=== PATIENT | female | born 1950 | race Caucasian/White ===

== ENCOUNTER 2021-10-14 23:09 | Inpatient (IN) | payer MEDICARE, OTHER ==
[~2021-10-14] VITALS: Ht 154.9 cm; Wt 85.0 kg
[2021-10-14] MEDS ORDERED: morphine INJ 10 MG/ML 1ML (SYR OR VIAL) IVP STA (23:25)
[2021-10-14] MEDS ORDERED: ASPIRIN 81 MG CHEW (CHILDREN'S ASA) PO ONE (23:30)
[2021-10-14] MEDS ORDERED: NS IV 1000 ML 1,000 ML IV SCH (23:30)
--- NOTE | 2021-10-14 23:33 | ED Chest Pain ---
General Chief Complaint: Chest Pain Stated Complaint: CHEST PAIN Source: patient Exam Limitations: no limitations History of Present Illness Date Seen by Provider: Oct 14, 2021 Time Seen by Provider: 23:21 Initial Comments Patient is a 71-year-old female who presents to the emergency department today with a chief complaint of substernal chest pain onset around 6-7pm PM while working in her kitchen. She states it has steadily worsened to the point that it is a "10" now. She is nauseous and feels like she could vomit. She feels short of breath. The pain radiates from her chest into her right shoulder, down her right arm and into the right side of her neck and face. She has never had pain like this before. She has never had any cardiac evaluation in the past. She has a history of hypertension and hypercholesterolemia. She is not a smoker. She did not take aspirin prior to arrival. Getting up and moving around make her pain worse. She had COVID in August. She is not a diabetic. All other review of systems reviewed and negative except as stated. 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 Associated Symptoms: nausea/vomiting, shortness of breath Allergies and Home Medications Allergies Coded Allergies: No Known Drug Allergies (Unverified , 10/14/21) Patient Home Medication List Home Medication List Reviewed: Yes Review of Systems Review of Systems Constitutional: see HPI EENTM: No Symptoms Reported Respiratory: Shortness of Air Cardiovascular: Chest Pain Gastrointestinal: Nausea Genitourinary: No Symptoms Reported Musculoskeletal: no symptoms reported Skin: no symptoms reported All Other Systems Reviewed Negative Unless Noted: Yes Physical Exam Vital Signs Vital Signs - First Documented 10/14/21 23:12 Pulse 65 Resp 20 B/P (MAP) 198/99 (132) Pulse Ox 99 O2 Delivery Room Air Capillary Refill : Height, Weight, BMI Height: '" Weight: lbs. oz. kg; BMI Method: General Appearance: WD/WN, Anxious HEENT: PERRL/EOMI Neck: Normal Inspection Respiratory: Lungs Clear, Normal Breath Sounds, No Accessory Muscle Use, No Respiratory Distress Cardiovascular: Regular Rate, Rhythm, Normal Peripheral Pulses Gastrointestinal: Non Tender, Soft Extremity: Normal Inspection, Normal Range of Motion, No Calf Tenderness, No Pedal Edema Neurologic/Psychiatric: Alert, Oriented x3, No Motor/Sensory Deficits, Normal Mood/Affect, emergency room clerk II-XII Norm as Tested Critical Care Note Critical Care Start Time: 23:21 Stop Time: 00:04 Total Time (minutes) 20 minutes critical care time eval and management of stemi - review of EKG, discussion with medical genetics director; re-evaluation of patient, management of high blood pressure Progress/Results/Core Measures Results/Orders Lab Results Laboratory Tests Test 10/14/21 23:22 Range/Units White Blood Count 6.1 4.3-11.0 10^3/uL Red Blood Count 4.56 3.80-5.11 10^6/uL Hemoglobin 13.1 11.5-16.0 g/dL Hematocrit 40 35-52 % Mean Corpuscular Volume 88 80-99 fL Mean Corpuscular Hemoglobin 29 25-34 pg Mean Corpuscular Hemoglobin Concent 33 32-36 g/dL Red Cell Distribution Width 13.2 10.0-14.5 % Platelet Count 279 130-400 10^3/uL Mean Platelet Volume 10.0 9.0-12.2 fL Immature Granulocyte % (Auto) 0 % Neutrophils (%) (Auto) 69 42-75 % Lymphocytes (%) (Auto) 20 12-44 % Monocytes (%) (Auto) 9 0-12 % Eosinophils (%) (Auto) 1 0-10 % Basophils (%) (Auto) 0 0-10 % Neutrophils # (Auto) 4.2 1.8-7.8 10^3/uL Lymphocytes # (Auto) 1.2 1.0-4.0 10^3/uL Monocytes # (Auto) 0.6 0.0-1.0 10^3/uL Eosinophils # (Auto) 0.1 0.0-0.3 10^3/uL Basophils # (Auto) 0.0 0.0-0.1 10^3/uL Immature Granulocyte # (Auto) 0.0 0.0-0.1 10^3/uL Prothrombin Time 12.3 12.2-14.7 SEC INR Comment 0.9 0.8-1.4 Activated Partial Thromboplast Time 28 24-35 SEC Sodium Level 138 135-145 MMOL/L Potassium Level 4.2 3.6-5.0 MMOL/L Chloride Level 101 98-107 MMOL/L Carbon Dioxide Level 24 21-32 MMOL/L Anion Gap 13 5-14 MMOL/L Blood Urea Nitrogen 17 7-18 MG/DL Creatinine 0.90 0.60-1.30 MG/DL Estimat Glomerular Filtration Rate 68 BUN/Creatinine Ratio 19 Glucose Level 118 H 70-105 MG/DL Calcium Level 9.4 8.5-10.1 MG/DL Corrected Calcium 9.4 8.5-10.1 MG/DL Magnesium Level 2.2 1.6-2.4 MG/DL Total Bilirubin 0.3 0.1-1.0 MG/DL Aspartate Amino Transf (AST/SGOT) 17 5-34 U/L Alanine Aminotransferase (ALT/SGPT) 13 0-55 U/L Alkaline Phosphatase 82 40-136 U/L Myoglobin 60.0 H <58.0 NG/ML Troponin I 0.32 *H <0.30 NG/ML Total Protein 7.3 6.4-8.2 GM/DL Albumin 4.0 3.2-4.5 GM/DL My Orders Orders - TEE STEPHENS MD Chest 1 View Ap/Pa Only (10/14/21 23:23) Cbc With Automated Diff (10/14/21 23:25) Magnesium (10/14/21 23:25) Comprehensive Metabolic Panel (10/14/21 23:25) Myoglobin Serum (10/14/21 23:25) Protime With Inr (10/14/21 23:25) Partial Thromboplastin Time (10/14/21 23:25) O2 (10/14/21 23:25) Monitor-Rhythm Ecg Trace Only (10/14/21 23:25) Ed Iv/Invasive Line Start (10/14/21 23:25) Troponin I Fs (10/14/21 23:25) Aspirin Chewable Tablet (Baby Aspirin Ch (10/14/21 23:30) Morphine Injection (Morphine Injection (10/14/21 23:25) Ns Iv 1000 Ml (Sodium Chloride 0.9%) (10/14/21 23:30) Ondansetron Injection (Zofran Injectio (10/14/21 23:45) Heparin Drip 14135 Unit/500ml (Heparin (10/14/21 23:45) Heparin (Bolus Per Protocol) (Heparin (B (10/14/21 23:45) Cbc No Diff (10/14/21 23:33) Cbc No Diff (10/17/21 05:00) Cbc No Diff (10/20/21 05:00) Platelet Count (10/16/21 05:00) Platelet Count (10/17/21 05:00) Platelet Count (10/18/21 05:00) Platelet Count (10/19/21 05:00) Platelet Count (10/20/21 05:00) Platelet Count (10/21/21 05:00) Platelet Count (10/22/21 05:00) Platelet Count (10/23/21 05:00) Platelet Count (10/24/21 05:00) Partial Thromboplastin Time (10/15/21 03:33) Protime With Inr (10/17/21 05:00) Initiate Heparin Acs Protocol (10/14/21 23:33) Clopidogrel Tablet (Plavix Tablet) (10/14/21 23:45) Metoprolol Tartrate Injection (Lopressor (10/14/21 23:45) Ondansetron Injection (Zofran Injectio (10/14/21 23:34) Heparin Drip 93973 Unit/500ml (Heparin (10/14/21 23:44) Medications Given in ED Current Medications Medications Dose Ordered Sig/Hollie Route Start Time Stop Time Status Last Admin Dose Admin Aspirin 324 mg ONCE ONCE PO 10/14/21 23:30 10/14/21 23:31 DC 10/14/21 23:31 324 MG Clopidogrel Bisulfate 300 mg ONCE ONCE PO 10/14/21 23:45 10/14/21 23:46 DC 10/14/21 23:48 300 MG Heparin Sodium (Porcine) ACS PROTOCOL 60 uni... PRN PRN IV 10/14/21 23:45 10/15/21 02:14 DC 10/14/21 23:48 5,000 UNIT Metoprolol Tartrate 2.5 mg ONCE ONCE IV 10/14/21 23:45 10/14/21 23:46 DC 10/14/21 23:47 2.5 MG Ondansetron HCl 4 mg ONCE ONCE IVP 10/14/21 23:45 10/14/21 23:46 DC 10/14/21 23:35 4 MG Vital Signs/I&O 10/14/21 10/15/21 23:12 00:07 Pulse 65 62 Resp 20 18 B/P (MAP) 198/99 (132) 139/78 Pulse Ox 99 98 O2 Delivery Room Air Room Air Progress Progress Note #1: Time: 23:42 Progress Note Discussed with Dr. Gan would like Plavix load 300 mg p.o., heparin per ACS protocol as well as Lopressor 2.5 mg IV every 5 minutes x3. He is comfortable with morphine and withholding nitro at this time. She will be transferred down to [facility] straight to the [facility]. 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 Still rating it at about an "8" from a "10". Localized mostly in the right shoulder blade now. Initial ECG Impression Date: Oct 14, 2021 Initial ECG Impression Time: 23:25 Initial ECG Rate: 59 Initial ECG Rhythm: S.Michael Initial ECG Intervals MS interval 181 QRS [address] segment elevation noted in leads I, aVL, lead V2. ST segment depression in leads III and aVF Diagnostic Imaging Diagonstic Imaging: Xray Plain Films/CT/US/NM/MRI: chest Comments interpreted by me - bra still in place, obscures a little - cardiomegaly, slight increased pulmonary vascular congestion; slighty widened mediastinum (portable technique) no effusion. Departure Communication (Admissions) Time/Spoke to Admitting Phy: 23:[address] Gan Impression Primary Impression: STEMI (ST elevation myocardial infarction) Qualified Codes: I21.3 - ST elevation (STEMI) myocardial infarction of unspecified site Disposition: ADMITTED INPATIENT Condition: Critical Admissions Decision to Admit Reason: Admit from ER (General) Decision to Admit/Date: Oct 14, 2021 Time/Decision to Admit Time: 23:31 Transfer Transfer Reason: Exceeds level of care Time Spoke to Accepting Phy: 23:31 Transfer Progress Notes DIscussed with Dr Gan Transfer Facility: [facility] Method of Transfer: EMS Departure-Patient Inst. Referrals: HIEU ESCALERA MD (PCP) Primary Care Physician TEE STEPHENS MD Oct 14, 2021 23:33
[2021-10-14] MEDS ORDERED: ONDANSETRON 4 MG/2 ML (SDV) Z0FRAN ONE (23:34)
[2021-10-14] MEDS ORDERED: HEParin DRIP 25000 UNIT/500ML 500 ML IV ONE (23:44)
[2021-10-14 23:45] LABS: BASOPHILS % (AUTO) 0 % (0-10); EOSINOPHILS # (AUTO) 0.1 10^3/uL (0.0-0.3); EOSINOPHILS % (AUTO) 1 % (0-10); HEMATOCRIT 40 % (35-52); HEMOGLOBIN 13.1 g/dL (11.5-16.0); LYMPHOCYTES # (AUTO) 1.2 10^3/uL (1.0-4.0); LYMPHOCYTES % (AUTO) 20 % (12-44); MEAN CORPUSCULAR HEMOGLOBIN 29 pg (25-34); MEAN CORPUSCULAR HGB CONC 33 g/dL (32-36); MEAN CORPUSCULAR VOLUME 88 fL (80-99); MONOCYTES # (AUTO) 0.6 10^3/uL (0.0-1.0); MONOCYTES % (AUTO) 9 % (0-12); NEUTROPHILS # (AUTO) 4.2 10^3/uL (1.8-7.8); NEUTROPHILS % (AUTO) 69 % (42-75); PLATELET COUNT 279 10^3/uL (130-400); WHITE BLOOD COUNT 6.1 10^3/uL (4.3-11.0)
[2021-10-14] MEDS ORDERED: CLOPIDOGREL 300 MG (PLAVIX) TABLET PO ONE (23:45)
[2021-10-14] MEDS ORDERED: HEParin 1000 UNIT/ML (10ML VIAL) FOR BOLUS IV PRN (23:45)
[2021-10-14] MEDS ORDERED: HEParin DRIP 25000 UNIT/500ML 500 ML IV SCH (23:45)
[2021-10-14] MEDS ORDERED: ONDANSETRON 4 MG/2 ML (SDV) Z0FRAN IVP ONE (23:45)
[2021-10-14] MEDS ORDERED: meTOprolol 5 MG/5 ML (LOPRESSOR) VIAL IV ONE (23:45)
[2021-10-15 00:14] LABS: INR 0.9 (0.8-1.4); PROTHROMBIN TIME PATIENT 12.3 SEC (12.2-14.7)
[2021-10-15] MEDS ORDERED: MIDAZOLAM 5 MG/5 ML (VERSED) VIAL ONE (00:15)
[2021-10-15] MEDS ORDERED: fentaNYL INJ 100 MCG/2 ML AMP ONE (00:15)
[2021-10-15] MEDS ORDERED: HEParin 1000 UNIT/ML (10ML VIAL) FOR BOLUS ONE (00:15)
[2021-10-15 00:16] LABS: BILIRUBIN,TOTAL 0.3 MG/DL (0.1-1.0); CALCIUM 9.4 MG/DL (8.5-10.1); CREATININE SERUM 0.9 MG/DL (0.60-1.30); MAGNESIUM 2.2 MG/DL (1.6-2.4); POTASSIUM 4.2 MMOL/L (3.6-5.0)
[2021-10-15] MEDS ORDERED: NS IV 1000 ML 1,000 ML ONE (00:16)
[2021-10-15 00:17] LABS: TOTAL PROTEIN 7.3 GM/DL (6.4-8.2)
--- NOTE | 2021-10-15 01:29 | Cardiology History & Physical ---
HPI-Cardiology Cardiology H&P Date of Admission 10/15/20 Primary Care Physician Admitting Physician: Attending Physician: Tate Gan MD Facp Fac Ccds Attending Physician Moose Oglesby MD Consulting Physician HPI CC: Chest pain HPI 71 yo woman with onset of chest pain at approx 7 pm on 10/14/21 who presented to the ER in [facility] after the pain had escalated to 10/10 and was associated with nausea and feeling of shortness of breath. Pain was midsternal and radiated to the shoulders. She has not experienced such pain before. She was treated with oral ASA and Plavix in the ER. She also received a heparin bolus and heparin infusion, and she was also treated with beta-arnie. She was sent as an emergency to this hosp for card cath and possible ad hoc intervention. She understood the rationale and procedure, and consented to be transferred for cath and possible ad hoc cor intervention. Card cath was carried out in an emergency manner. Coronaries were found to be patent. There were luminal irregularities in the L cor system. LVEF was normal. LVEDP was elevated. Her chest pain had subsided completely. She denies palp or syncope or swelling Review of Systems-Cardiology Review of Systems Constitutional: No weight loss, No weight gain Eyes: No vision change Ears/Nose/Throat: No ear discharge, No nasal drainage, No recent hearing loss Respiratory: As described under HPI Cardiovascular: As described under HPI Gastrointestinal: As described under HPI Genitourinary: No dysuria, No hematuria Musculoskeletal: No back pain, No joint pain Skin: No rash, No ulcerations Psychiatric/Neurological: No seizure, No focal weakness, No syncope Hematologic: No bleeding abnormalities All Other Systems Reviewed Negative Unless Noted: Yes WXF-Yhmrmw-Cajgko Hx Patient Social History Have you traveled recently?: No Alcohol Use?: No Past Medical History PMH As described under Assessment. Family Medical History Family Medical History: She does not report fam h/o early CAD or SCD Allergies and Home Medications Allergies Coded Allergies: No Known Drug Allergies (Unverified , 10/14/21) Patient Home Medication List Home Medication List Reviewed: Yes Physical Exam-Cardiology Physical Exam Vital Signs/I&O 10/14/21 10/15/21 23:12 00:07 Pulse 65 62 Resp 20 18 B/P (MAP) 198/99 (132) 139/78 Pulse Ox 99 98 O2 Delivery Room Air Room Air Capillary Refill : Less Than 3 Seconds Constitutional: AAO x 3, well-developed, well-nourished HEENT: PERRL, EOMI Neck: carotid pulses are 2 + bilaterally, with good upstrokes Respiratory: No accessory muscle use; other (good, bilat air entry) Cardiovascular: regular rate-rhythm, S1 and S2, systolic murmur (soft ALTAGRACIA at ca rd base) Gastrointestinal: No tender; soft; No guarding, No rebound; audible bowel sounds Extremities: No clubbing, No cyanosis, No significant edema Neurologic/Psychiatric: oriented x 3, other (moves all limbs equally) Skin: No rash on exposed areas, No ulcerations on exposed areas Data Review Labs Laboratory Tests 10/14/21 23:22: White Blood Count 6.1, Red Blood Count 4.56, Hemoglobin 13.1, Hematocrit 40, Mean Corpuscular Volume 88, Mean Corpuscular Hemoglobin 29, Mean Corpuscular Hemoglobin Concent 33, Red Cell Distribution Width 13.2, Platelet Count 279, Me an Platelet Volume 10.0, Immature Granulocyte % (Auto) 0, Neutrophils (%) (Auto) 69, Lymphocytes (%) (Auto) 20, Monocytes (%) (Auto) 9, Eosinophils (%) (Auto) 1, Basophils (%) (Auto) 0, Neutrophils # (Auto) 4.2, Lymphocytes # (Auto) 1.2, Monocytes # (Auto) 0.6, Eosinophils # (Auto) 0.1, Basophils # (Auto) 0.0, Immature Granulocyte # (Auto) 0.0, Prothrombin Time 12.3, INR Comment 0.9, Activated Partial Thromboplast Time 28, Sodium Level 138, Potassium Level 4.2, Chloride Level 101, Carbon Dioxide Level 24, Anion Gap 13, Blood Urea Nitrogen 17, Creatinine 0.90, Estimat Glomerular Filtration Rate 68, BUN/Creatinine Ratio 19, Glucose Level 118H, Calcium Level 9.4, Corrected Calcium 9.4, Magnesium Level 2.2, Total Bilirubin 0.3, Aspartate Amino Transf (AST/SGOT) 17, Alanine Aminotransferase (ALT/SGPT) 13, Alkaline Phosphatase 82, Myoglobin 60.0H, Troponin I 0.32*H, Total Protein 7.3, Albumin 4.0 Laboratory Tests 10/14/21 23:22 A/P-Cardiology Assessment/Admission Diagnosis Ac STEMI (anterolateral) - self-resolving after treatment with DAPT and iv heparin - emergency card cath on 10/15/21: LMCA OK, LAD prox and mid luminal irregularities, LCX luminal irreg, RCA dominant and free of significant disease, LVEF 60%, LVEDP 28 mmHg Hypertension, by history Admission Status: Inpatient Order (span 2 midnights) Reason for Inpatient Admission: Ac AR Discussion and Recomendations * DAPT * Enoxaparin * BB * Statin * Echo * Monitor labs * Further recs to be based on hosp course Clinical Quality Measures AMI/AHF: ASA po Prior to arrival: TATE Correa MD FACP FAC CCDS Oct 15, 2021 01:29
[2021-10-15] MEDS ORDERED: ENOXAPARIN 80 MG/0.8 ML (LOVENOX) SYR SC ONE (01:45)
[2021-10-15] MEDS ORDERED: PATIENT MAY USE OWN MEDS, ALL PO SCH (01:45)
[2021-10-15] MEDS ORDERED: meTOproloL SUCCINATE 50 MG (TOPROL XL) TAB PO SCH (01:45)
--- NOTE | 2021-10-15 02:02 | CARDIAC CATHETERIZATION ---
DATE OF SERVICE: 10/15/2021 CARDIAC CATHETERIZATION REPORT The patient is a 71-year-old lady who presented with severe midsternal chest pain to the [facility]. Electrocardiogram showed ST elevation in the anterolateral leads. She was treated with aspirin and clopidogrel and intravenous heparin and beta-arnie and transferred to this hospital for emergency cardiac catheterization and coronary intervention. She provided consent for that. DESCRIPTION OF PROCEDURE: She was brought to the cardiac catheterization laboratory. Right groin was prepared and draped in the usual sterile fashion. 1% lidocaine was used for local anesthesia. Modified Seldinger technique was used to advance a 5-Italian sheath in right femoral artery, 5-Italian JL4 guide catheter was used for left coronary angiography, 5-Italian JR4 guide catheter was used for right coronary angiography, 5-Italian pigtail catheter was used for left heart catheterization and left ventricular angiography. At the end of the procedure, angiography of the right femoral artery was carried out through the sheath. Mynx was used to achieve hemostasis. HEMODYNAMICS: Left ventricular end-diastolic pressure following coronary angiography was 28 mmHg. There was no significant pressure gradient on pullback across the aortic valve. CORONARY ANGIOGRAPHY: Left main coronary artery is free of significant disease. Left anterior descending artery has mild plaque in the proximal and mid portions. Cannot exclude occlusion of a tiny sub-branch of a small caliber diagonal. Left circumflex artery is nondominant and has mild plaques. Right coronary artery is large and dominant and does not exhibit significant disease. LEFT VENTRICULAR ANGIOGRAPHY: Left ventricular angiography was carried out in right anterior oblique projection. Global left ventricular systolic function appears well preserved Mild apical hypokinesis. Left ventricular ejection fraction approximately 60%. CONCLUSIONS: 1. Angiographically mild coronary artery disease. Cannot exclude occlusion of a tiny sub-branch of a small caliber diagonal 2. LVEF approx 60%; mild apical hypokinesis 3. Elevated left ventricular end-diastolic pressure. DISCUSSION AND RECOMMENDATIONS: Based on results of the study, it appears appropriate to continue a conservative approach. Her chest discomfort has resolved completely. The coronaries exhibit only mild residual plaque. We will continue therapy with dual antiplatelet therapy, statins, beta blockers. We will also give low molecular weight heparin for 24 to 48 hours. Risk factor modification has been reviewed. Job ID: [id number] DocumentID: [id number] Dictated Date: 10/15/2021 01:48:04 Rubber Mill Tender Date: 10/15/2021 02:01:18 Dictated By: LEEROY FUENTES MD, MA, FACP, FACC, MTDD
[2021-10-15] MEDS ORDERED: meTOprolol TARTRATE 50 MG (LOPRESSOR) TAB ONE (02:24)
[2021-10-15] MEDS ORDERED: ACETAMINOPHEN 325 MG TABLET ONE (02:24)
[2021-10-15] MEDS: ACETAMINOPHEN 325 MG TABLET PO PRN (02:29)
[2021-10-15] MEDS: NS IV 1000 ML 1,000 ML IV SCH ×2 (02:29→15:23)
[2021-10-15] MEDS ORDERED: ENOXAPARIN 80 MG/0.8 ML (LOVENOX) SYR SC SCH (02:30)
[2021-10-15] MEDS ORDERED: amLODIPine 10 MG (NORVASC) TAB ONE (02:35)
[2021-10-15] MEDS ORDERED: amLODIPine 10 MG (NORVASC) TAB PO ONE (02:45)
[2021-10-15] MEDS ORDERED: NS IV 500 ML 500 ML IV PRN (03:30)
[2021-10-15] MEDS ORDERED: doxAzosin 2 MG (CARDURA) TAB PO PRN (05:00)
[2021-10-15] MEDS ORDERED: doxAzosin 2 MG (CARDURA) TAB PO ONE (05:00)
[2021-10-15 05:12] LABS: BASOPHILS % (AUTO) 0 % (0-10); EOSINOPHILS % (AUTO) 0 % (0-10); HEMATOCRIT 37 % (35-52); LYMPHOCYTES # (AUTO) 0.8 10^3/uL (1.0-4.0); LYMPHOCYTES % (AUTO) 13 % (12-44); MEAN CORPUSCULAR HEMOGLOBIN 29 pg (25-34); MEAN CORPUSCULAR HGB CONC 33 g/dL (32-36); MEAN CORPUSCULAR VOLUME 89 fL (80-99); MEAN PLATELET VOLUME 9.4 fL (9.0-12.2); MONOCYTES # (AUTO) 0.4 10^3/uL (0.0-1.0); MONOCYTES % (AUTO) 7 % (0-12); NEUTROPHILS # (AUTO) 5.2 10^3/uL (1.8-7.8); NEUTROPHILS % (AUTO) 80 % (42-75); WHITE BLOOD COUNT 6.5 10^3/uL (4.3-11.0)
[2021-10-15 05:21] LABS: PLATELET COUNT 242 10^3/uL (130-400)
[2021-10-15 05:29] LABS: POTASSIUM 4.5 MMOL/L (3.6-5.0)
[2021-10-15 05:30] LABS: ALBUMIN 3.5 GM/DL (3.2-4.5)
[2021-10-15 05:31] LABS: CALCIUM 8.5 MG/DL (8.5-10.1)
[2021-10-15 05:32] LABS: TOTAL PROTEIN 6.6 GM/DL (6.4-8.2)
[2021-10-15 05:34] LABS: BILIRUBIN,TOTAL 0.3 MG/DL (0.1-1.0)
[2021-10-15 05:36] LABS: CREATININE SERUM 0.72 MG/DL (0.60-1.30)
[2021-10-15 05:39] LABS: MAGNESIUM 2.1 MG/DL (1.6-2.4)
[2021-10-15] MEDS: KCL 20 MEQ TAB (K-DUR) PO SCH (06:08)
[2021-10-15] MEDS: POTASSIUM CL 10MEQ/50ML IVPB 50 ML IV SCH (06:08)
[2021-10-15] MEDS: MAGNESIUM 1 GM/100 ML IVPB 100 ML IV SCH (06:08)
[2021-10-15] MEDS: ONDANSETRON 4 MG/2 ML (SDV) Z0FRAN IVP PRN ×2 (06:12→14:06)
--- NOTE | 2021-10-15 06:41 | Diagnostic Imaging Report ---
Indication: Chest pain Portable chest 11:25 PM Heart and mediastinum are normal. Lungs are clear. There are no effusions or pneumothoraces. IMPRESSION: No acute abnormalities in the chest. Dictated by: Dictated on workstation # [id number]
[2021-10-15] MEDS: CLOPIDOGREL 75 MG (PLAVIX) TABLET PO SCH (08:02)
[2021-10-15] MEDS: meTOproloL SUCCINATE 50 MG (TOPROL XL) TAB PO SCH (08:02)
[2021-10-15] MEDS: ASPIRIN 81 MG CHEW (CHILDREN'S ASA) PO SCH (08:03)
[2021-10-15] MEDS ORDERED: PANTOPRAZOLE 40 MG (PROTONIX) VIAL IV NR (09:34)
[2021-10-15] MEDS ORDERED: LIDOCAINE 1% INJ 20 ML VIAL INJ ONE (10:24)
[2021-10-15] MEDS ORDERED: HEParin (CATH LAB) 1,000 ML IV ONE (10:24)
--- NOTE | 2021-10-15 11:24 | Cardiac Procedure Note-CS/ASA ---
Pre-Procedure Note Pre-Op Procedure Note Date of Available H&P: Oct 15, 2021 Date H&P Reviewed: Oct 15, 2021 Time H&P Reviewed: 01:00 History & Physical: H&P Reviewed, Patient Examed Conscious Sedation Pre-Proced ASA Score 3 For ASA 3 and 4: Consider anesthesia and medical clearance. Also, for patients with a history of failed moderate sedation consider anesthesia. Airway Lungs Heart ASA score ASA 1: a normal healthy patient ASA 2: a patient with a mild systemic disease (mid diabetes, controlled hypertension, obesity ASA 3: a patient with a severe systemic disease that limits activity (angina, COPD, prior Myocardial infarction) ASA 4: a patient with an incapacitating disease that is a constant threat to life (CHF, renal failure) ASA 5: a moribund patient not expected to survive 24 hrs. (ruptured aneurysm) ASA 6: a declared brain- patient whose organs are being harvested. For emergent operations, add the letter E after the classification Mallampati Classification Grade 3 Sedation Plan Analgesia, Amnesia, Plan communicated to team members The patient is an appropriate candidate to undergo the planned procedure, sedation, and anesthesia. The patient immediately re-assessed prior to indication. LEEROY FUENTES MD FACP [facility] Oct 15, 2021 11:24
[2021-10-15] MEDS ORDERED: PROMETHAZINE INJ 25 MG/ML (PHENERGAN) AMP IVP PRN (11:45)
--- NOTE | 2021-10-15 22:27 | Consultation ---
HPI History of Present Illness: 71 yo F that presented to ER with STEMI activation. She was seen by Dr Gan and taken to catheterization laboratory technician. Upon arrival to [facility] ER prior to going to catheterization laboratory technician chest pain had resolved completely. Cath revealed only minimal disease. This AM she states that her pain is gone but now she is having nausea and vomiting. Denies a ny abdominal pain. She is having normal BMs. Denies any new or abnormal foods. Denies any fever or chills. She has not been around anyone who has been sick. Source: patient Exam Limitations: no limitations Date seen by provider: Oct 15, 2021 Time Seen by Provider: 10:05 Attending Physician Moose Oglesby MD PCP Admitting Physician: Tate Gan MD [facility] Attending Physician: Tate Gan MD [facility] Consult Date of Admission Oct 15, 2021 at 01:49 Home Medications Home Medications Reviewed patient Home Medication Reconciliation performed by pharmacy medication reconciliations senior electronics technician and/or nursing. Patients Allergies have been reviewed. 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 Past Medical History N/A Review of Systems (CHC) Constitutional: No chills, No fever; malaise EENTM: no symptoms reported; No mouth pain, No nose congestion, No throat pain Respiratory: no symptoms reported; No dyspnea on exertion, No short of breath Cardiovascular: chest pain Gastrointestinal: No abdominal pain, No constipation, No diarrhea; loss of appetite, nausea, vomiting Genitourinary: no symptoms reported; No dysuria, No frequency, No hematuria Musculoskeletal: no symptoms reported; No back pain, No joint pain, No muscle pain Skin: no symptoms reported Psychiatric/Neurological: Anxiety Reviewed Test Results Reviewed Test Results Lab Laboratory Tests Test 10/14/21 23:22 10/15/21 04:56 10/15/21 10:00 Range/Units White Blood Count 6.1 6.5 4.3-11.0 10^3/uL Red Blood Count 4.56 4.14 3.80-5.11 10^6/uL Hemoglobin 13.1 12.0 11.5-16.0 g/dL Hematocrit 40 37 35-52 % Mean Corpuscular Volume 88 89 80-99 fL Mean Corpuscular Hemoglobin 29 29 25-34 pg Mean Corpuscular Hemoglobin Concent 33 33 32-36 g/dL Red Cell Distribution Width 13.2 13.0 10.0-14.5 % Platelet Count 279 242 130-400 10^3/uL Mean Platelet Volume 10.0 9.4 9.0-12.2 fL Immature Granulocyte % (Auto) 0 0 % Neutrophils (%) (Auto) 69 80 H 42-75 % Lymphocytes (%) (Auto) 20 13 12-44 % Monocytes (%) (Auto) 9 7 0-12 % Eosinophils (%) (Auto) 1 0 0-10 % Basophils (%) (Auto) 0 0 0-10 % Neutrophils # (Auto) 4.2 5.2 1.8-7.8 10^3/uL Lymphocytes # (Auto) 1.2 0.8 L 1.0-4.0 10^3/uL Monocytes # (Auto) 0.6 0.4 0.0-1.0 10^3/uL Eosinophils # (Auto) 0.1 0.0 0.0-0.3 10^3/uL Basophils # (Auto) 0.0 0.0 0.0-0.1 10^3/uL Immature Granulocyte # (Auto) 0.0 0.0 0.0-0.1 10^3/uL Prothrombin Time 12.3 12.2-14.7 SEC INR Comment 0.9 0.8-1.4 Activated Partial Thromboplast Time 28 49 H 24-35 SEC Sodium Level 138 138 135-145 MMOL/L Potassium Level 4.2 4.5 3.6-5.0 MMOL/L Chloride Level 101 106 98-107 MMOL/L Carbon Dioxide Level 24 21 21-32 MMOL/L Anion Gap 13 11 5-14 MMOL/L Blood Urea Nitrogen 17 14 7-18 MG/DL Creatinine 0.90 0.72 0.60-1.30 MG/DL Estimat Glomerular Filtration Rate 68 89 BUN/Creatinine Ratio 19 19 Glucose Level 118 H 124 H 70-105 MG/DL Calcium Level 9.4 8.5 8.5-10.1 MG/DL Corrected Calcium 9.4 8.9 8.5-10.1 MG/DL Magnesium Level 2.2 2.1 1.6-2.4 MG/DL Total Bilirubin 0.3 0.3 0.1-1.0 MG/DL Aspartate Amino Transf (AST/SGOT) 17 41 H 5-34 U/L Alanine Aminotransferase (ALT/SGPT) 13 23 0-55 U/L Alkaline Phosphatase 82 68 40-136 U/L Myoglobin 60.0 H <58.0 NG/ML Troponin I 0.32 *H <0.30 NG/ML Total Protein 7.3 6.6 6.4-8.2 GM/DL Albumin 4.0 3.5 3.2-4.5 GM/DL Triglycerides Level 86 <150 MG/DL Cholesterol Level 177 < 200 MG/DL LDL Cholesterol Direct 94 1-129 MG/DL VLDL Cholesterol 17 5-40 MG/DL HDL Cholesterol 68 H 40-60 MG/DL Thyroid Stimulating Hormone (TSH) 2.27 0.35-4.94 UIU/ML SARS-CoV-2 RNA (RT-PCR) Not Detected Not Detecte Physical Exam-(CHC) Physical Exam Vital Signs VS - Last 72 Hours, by Label 10/14/21 10/15/21 10/15/21 10/15/21 23:12 00:07 01:45 01:45 Temp 36.0 Pulse 65 62 Resp 20 18 B/P (MAP) 198/99 (132) 139/78 Pulse Ox 99 98 94 O2 Delivery Room Air Room Air Nasal Cannula Nasal Cannula O2 Flow Rate 2.00 2.00 10/15/21 10/15/21 10/15/21 10/15/21 01:51 02:00 02:15 02:30 Pulse 66 61 62 61 Resp 16 16 19 B/P (MAP) 164/82 (109) 182/92 (122) 197/105 (135) Pulse Ox 92 94 94 O2 Delivery Nasal Cannula Nasal Cannula Nasal Cannula O2 Flow Rate 2.00 2.00 2.00 10/15/21 10/15/21 10/15/21 10/15/21 02:45 03:00 03:30 03:34 Temp 36.2 Pulse 63 64 58 Resp 20 21 21 B/P (MAP) 184/85 (118) 176/85 (115) 158/84 (108) Pulse Ox 94 93 95 O2 Delivery Nasal Cannula Nasal Cannula Nasal Cannula Nasal Cannula O2 Flow Rate 2.00 2.00 2.00 2.00 10/15/21 10/15/21 10/15/21 10/15/21 04:00 05:00 06:00 06:05 Pulse 63 56 56 Resp 21 17 17 B/P (MAP) 164/86 (112) 174/92 (119) 165/82 (109) Pulse Ox 93 93 96 93 O2 Delivery Nasal Cannula Nasal Cannula Nasal Cannula Nasal Cannula O2 Flow Rate 2.00 2.00 2.00 2.00 10/15/21 10/15/21 10/15/21 10/15/21 07:00 07:34 08:00 08:00 Temp 36.2 Pulse 59 57 61 Resp 24 20 B/P (MAP) 216/111 (146) 161/71 (101) Pulse Ox 96 90 O2 Delivery Nasal Cannula Nasal Cannula O2 Flow Rate 2.00 2.00 10/15/21 10/15/21 10/15/21 10/15/21 08:56 09:00 10:00 11:00 Pulse 58 51 61 Resp 16 13 22 B/P (MAP) 106/47 (66) 111/55 (73) 109/57 (74) Pulse Ox 94 94 97 94 O2 Delivery Nasal Cannula Nasal Cannula Nasal Cannula Nasal Cannula O2 Flow Rate 2.00 2.00 2.00 2.00 10/15/21 10/15/21 10/15/21 10/15/21 12:00 12:00 13:00 13:24 Temp 36.5 Pulse 56 70 Resp 15 22 B/P (MAP) 111/59 (76) 151/57 (88) Pulse Ox 93 97 94 O2 Delivery Nasal Cannula Nasal Cannula Nasal Cannula O2 Flow Rate 2.00 2.00 2.00 10/15/21 10/15/21 10/15/21 10/15/21 13:29 14:00 15:00 16:00 Pulse 63 65 55 64 Resp 9 19 15 B/P (MAP) 128/82 (97) 129/58 (81) 145/71 (95) Pulse Ox 97 93 98 O2 Delivery Nasal Cannula Nasal Cannula Nasal Cannula O2 Flow Rate 2.00 2.00 2.00 10/15/21 10/15/21 10/15/21 10/15/21 17:00 17:40 18:00 19:00 Pulse 67 65 53 Resp 37 23 B/P (MAP) 161/78 (105) 131/64 (86) Pulse Ox 97 94 93 O2 Delivery Nasal Cannula Nasal Cannula Nasal Cannula O2 Flow Rate 2.00 2.00 2.00 10/15/21 10/15/21 10/15/21 19:01 20:02 20:10 Temp 36.6 B/P (MAP) Pulse Ox 92 O2 Delivery Nasal Cannula Nasal Cannula Nasal Cannula O2 Flow Rate 2.00 2.00 2.00 Capillary Refill : Less Than 3 Seconds General Appearance: WD/WN, mild distress (with vomiting) HEENT: PERRL/EOMI Neck: non-tender, full range of motion Respiratory: chest non-tender, lungs clear, normal breath sounds, no respir atory distress, no accessory muscle use Cardiovascular: normal peripheral pulses, regular rate, rhythm, no edema, no murmur Gastrointestinal: normal bowel sounds, non tender, soft; No guarding, No rebound, No tenderness Back: no CVA tenderness, no vertebral tenderness Extremities: normal range of motion, non-tender, normal inspection, no pedal edema, no calf tenderness, normal capillary refill Neurologic/Psychiatric: puppy walker II-XII nml as tested, no motor/sensory deficits, alert, normal mood/affect, oriented x 3 Skin: normal color, warm/dry Lymphatic: no adenopathy Assessment/Plan Assessment/Plan (1) Atypical chest pain Status: Acute Assessment & Plan: - STEMI activation, Dr Gan admitted patient and asked for medical consult, Cath revealed on mild CAD, New meds started (2) CAD (coronary artery disease) Status: Chronic Qualifiers: Qualified Codes: I25.10 - Atherosclerotic heart disease of [place] coronary artery without angina pectoris (3) Nausea & vomiting Status: Acute Assessment & Plan: - Started on PPI, zofran and phenergen, bland diet Qualifiers: Qualified Codes: R11.2 - Nausea with vomiting, unspecified Clinical Quality Measures AMI/AHF: ASA po Prior to arrival: KELLY Ward MD Oct 15, 2021 22:27
[2021-10-16 05:38] LABS: POTASSIUM 3.9 MMOL/L (3.6-5.0)
[2021-10-16 05:39] LABS: CALCIUM 8.5 MG/DL (8.5-10.1)
[2021-10-16 05:44] LABS: CREATININE SERUM 0.66 MG/DL (0.60-1.30); PHOSPHORUS 3.6 MG/DL (2.3-4.7)
[2021-10-16 05:46] LABS: MAGNESIUM 1.9 MG/DL (1.6-2.4)
[2021-10-16 05:59] LABS: HEMATOCRIT 34 % (35-52); HEMOGLOBIN 11.1 g/dL (11.5-16.0); MEAN CORPUSCULAR HEMOGLOBIN 29 pg (25-34); MEAN CORPUSCULAR HGB CONC 33 g/dL (32-36); MEAN CORPUSCULAR VOLUME 88 fL (80-99); MEAN PLATELET VOLUME 9.9 fL (9.0-12.2); PLATELET COUNT 193 10^3/uL (130-400)
[2021-10-16] MEDS: POTASSIUM CL 10MEQ/50ML IVPB 50 ML IV SCH (05:59)
[2021-10-16] MEDS: KCL 20 MEQ TAB (K-DUR) PO SCH (05:59)
[2021-10-16] MEDS: MAGNESIUM 1 GM/100 ML IVPB 100 ML IV SCH (05:59)
--- NOTE | 2021-10-16 08:35 | Progress Note - Cardiology ---
Cardiology SOAP Progress Note Subjective: Sitting up in recliner at the bedside No c/o nausea No c/o CP, SOB or palpitations Objective: I&O/Vital Signs 10/16/21 10/16/21 10/16/21 10/16/21 21:00 22:00 23:00 23:15 Pulse 72 68 73 71 Resp 21 23 23 20 B/P (MAP) 115/59 (82) 102/51 (72) 83/46 (62) 96/47 (67) Pulse Ox 93 92 94 95 O2 Delivery Nasal Cannula Nasal Cannula Nasal Cannula Nasal Cannula O2 Flow Rate 2.00 2.00 2.00 2.00 10/16/21 10/17/21 10/17/21 10/17/21 23:52 00:00 00:00 00:00 Temp 37.1 Pulse 71 Resp 31 B/P (MAP) 102/42 (62) Pulse Ox 94 97 O2 Delivery Nasal Cannula Nasal Cannula Nasal Cannula O2 Flow Rate 2.00 2.00 2.00 10/17/21 10/17/21 10/17/21 10/17/21 01:00 01:00 02:00 03:00 Pulse 71 71 73 59 Resp 18 20 16 B/P (MAP) 99/45 (66) 99/47 (62) 101/49 (65) Pulse Ox 92 92 97 O2 Delivery Nasal Cannula Nasal Cannula Nasal Cannula O2 Flow Rate 2.00 2.00 2.00 10/17/21 10/17/21 10/17/21 10/17/21 04:00 04:00 04:39 05:00 Temp 36.4 Pulse 75 70 Resp 20 28 B/P (MAP) 109/55 (67) 117/58 (77) Pulse Ox 97 95 96 O2 Delivery Nasal Cannula Nasal Cannula Nasal Cannula O2 Flow Rate 2.00 2.00 2.00 10/17/21 10/17/21 10/17/21 10/17/21 06:00 07:20 07:53 08:01 Temp 36.7 Pulse 61 66 Resp 28 B/P (MAP) 120/53 (75) Pulse Ox 97 95 O2 Delivery Nasal Cannula Nasal Cannula O2 Flow Rate 2.00 2.00 10/17/21 00:00 Intake Total 780 ml Output Total 300 ml Balance 480 ml Side: right Condition: DP/PT pulses palpable, extremity w/d/p Bruising: mild bruising Constitutional: AAO x 3, well-developed, well-nourished Respiratory: No accessory muscle use; other (good, bilat air entry) Cardiovascular: regular rate-rhythm, S1 and S2, systolic murmur (soft ALTAGRACIA at card base) Gastrointestional: No tender; soft; No guarding, No rebound; audible bowel sounds Extremities: No clubbing, No cyanosis, No significant edema Neurologic/Psychiatric: oriented x 3, other (moves all limbs equally) Skin: No rash on exposed areas, No ulcerations on exposed areas Results/Procedures: Labs Laboratory Tests 10/16/21 13:51: Activated Partial Thromboplast Time 24 10/16/21 19:17: Activated Partial Thromboplast Time 86H 10/17/21 00:35: Activated Partial Thromboplast Time 74H 10/17/21 04:55: White Blood Count 6.9, Red Blood Count 3.38L, Hemoglobin 9.9L, Hematocrit 30L, Mean Corpuscular Volume 88, Mean Corpuscular Hemoglobin 29, Mean Corpuscular Hemoglobin Concent 33, Red Cell Distribution Width 12.8, Platelet Count 208, Mean Platelet Volume 9.8, Prothrombin Time 14.4, INR Comment 1.1, Sodium Level 138, Potassium Level 3.8, Chloride Level 102, Carbon Dioxide Level 28, Anion Gap 8, Blood Urea Nitrogen 10, Creatinine 0.75, Estimat Glomerular Filtration Rate 85, BUN/Creatinine Ratio 13, Glucose Level 120H, Calcium Level 8.6, Corrected Calcium 9.5, Phosphorus Level 3.2, Magnesium Level 1.7, Total Bilirubin 0.4, Aspartate Amino Transf (AST/SGOT) 31, Alanine Aminotransferase (ALT/SGPT) 19, Alkaline Phosphatase 55, Total Protein 5.6L, Albumin 2.9L Microbiology 10/15/21 MRSA Screen - Final, Complete MRSA not isolated A/P: Assessment: Ac STEMI (anterolateral) - self-resolving after treatment with DAPT and iv heparin - emergency card cath on 10/15/21: LMCA OK, LAD prox and mid luminal irregularities, LCX luminal irreg, RCA dominant and free of significant disease, LVEF 60%, LVEDP 28 mmHg Hypertension, by history Nausea - undetermined etiology - resolved with addition of PPI Plan: * Continue DAPT, BB and statin * Echo pending * Continue PPI - no further c/o nausea * Monitor labs Clinical Quality Measures AMI/AHF: ASA po Prior to arrival: MELISSA Rust [facility] Oct 16, 2021 08:35
[2021-10-16] MEDS: CLOPIDOGREL 75 MG (PLAVIX) TABLET PO SCH (08:40)
[2021-10-16] MEDS: ASPIRIN 81 MG CHEW (CHILDREN'S ASA) PO SCH (08:40)
[2021-10-16] MEDS: PANTOPRAZOLE 40 MG (PROTONIX) TAB PO SCH (08:41)
[2021-10-16] MEDS: meTOproloL SUCCINATE 50 MG (TOPROL XL) TAB PO SCH (08:41)
[2021-10-16] MEDS ORDERED: METO50TA7 PO (08:43)
[2021-10-16] MEDS ORDERED: ATOR80TA76 PO (08:43)
[2021-10-16] MEDS ORDERED: PANT40TA52 PO (08:43)
[2021-10-16] MEDS ORDERED: CLOP75TA28 PO (08:43)
[2021-10-16] MEDS ORDERED: ASPI81TA64 PO (08:43)
--- NOTE | 2021-10-16 08:43 | Discharge Inst-Cardiology ---
Discharge Inst-Cardiac Discharge Medications New Medications: Aspirin (Children's Aspirin) 81 Mg Tab.chew 81 MG PO DAILY, #90 TAB 3 Refills Atorvastatin Calcium (Atorvastatin Calcium) 80 Mg Tablet 80 MG PO HS, #90 TAB 3 Refills Clopidogrel Bisulfate (Clopidogrel) 75 Mg Tablet 75 MG PO DAILY, #90 TAB 3 Refills Metoprolol Succinate (Metoprolol Succinate) 50 Mg Tab.er.24h 50 MG PO DAILY, #90 TAB 3 Refills Pantoprazole Sodium (Pantoprazole Sodium) 40 Mg Tablet.dr 40 MG PO DAILY, #30 TAB 1 Refill New, Converted or Re-Newed RX: Transmitted to Pharmacy Patient Instructions Patient Instructions: Please schedule follow up appointment to see Dr. Gan in 2 weeks MELISSA BARNETT Oct 16, 2021 08:43
--- NOTE | 2021-10-16 09:15 | Progress Note - Cardiology ---
Cardiology SOAP Progress Note Subjective: No cp or palp or syncope Feels better today Mild to mod intermittent nausea Gen malaise and weakness No swelling No fever or chills Objective: I&O/Vital Signs 10/15/21 10/15/21 10/15/21 10/15/21 22:00 23:00 23:50 23:50 Temp 36.4 Pulse 54 61 Resp 26 24 B/P (MAP) 127/61 (83) 125/58 (80) Pulse Ox 99 95 95 O2 Delivery Nasal Cannula Nasal Cannula Nasal Cannula Nasal Cannula O2 Flow Rate 2.00 2.00 2.00 2.00 10/16/21 10/16/21 10/16/21 10/16/21 00:00 01:00 01:00 02:00 Pulse 50 62 50 58 Resp 17 23 23 B/P (MAP) 117/61 (79) 131/67 (88) 132/76 (94) Pulse Ox 97 95 97 O2 Delivery Nasal Cannula Nasal Cannula Nasal Cannula O2 Flow Rate 2.00 2.00 2.00 10/16/21 10/16/21 10/16/21 10/16/21 02:20 03:00 04:00 04:25 Temp 36.6 Pulse 54 55 Resp 21 20 B/P (MAP) 129/55 (79) 116/61 (79) Pulse Ox 97 99 93 O2 Delivery Nasal Cannula Nasal Cannula Nasal Cannula Nasal Cannula O2 Flow Rate 2.00 2.00 2.00 2.00 10/16/21 10/16/21 10/16/21 10/16/21 05:00 06:00 07:00 07:30 Pulse 51 53 52 Resp 20 24 B/P (MAP) 131/64 (86) 130/58 (82) Pulse Ox 98 95 93 O2 Delivery Nasal Cannula Nasal Cannula Room Air O2 Flow Rate 2.00 2.00 10/16/21 10/16/21 08:01 08:41 Pulse 70 O2 Delivery Nasal Cannula O2 Flow Rate 2.00 10/16/21 00:00 Intake Total 1790 ml Output Total 500 ml Balance 1290 ml Side: right Condition: DP/PT pulses palpable, extremity w/d/p Bruising: mild bruising Constitutional: AAO x 3, well-developed, well-nourished Respiratory: No accessory muscle use; other (good, bilat air entry) Cardiovascular: regular rate-rhythm, S1 and S2, systolic murmur (soft ALTAGRACIA at card base) Gastrointestional: No tender; soft; No guarding, No rebound; audible bowel sounds Extremities: No clubbing, No cyanosis, No significant edema Neurologic/Psychiatric: oriented x 3, other (moves all limbs equally) Skin: No rash on exposed areas, No ulcerations on exposed areas Results/Procedures: Labs Laboratory Tests 10/15/21 10:00: SARS-CoV-2 RNA (RT-PCR) Not Detected 10/16/21 05:05: White Blood Count 5.0, Red Blood Count 3.79L, Hemoglobin 11.1L, Hematocrit 34L, Mean Corpuscular Volume 88, Mean Corpuscular Hemoglobin 29, Mean Corpuscular Hemoglobin Concent 33, Red Cell Distribution Width 12.7, Platelet Count 193, Mean Platelet Volume 9.9, Sodium Level 139, Potassium Level 3.9, Chloride Level 105, Carbon Dioxide Level 21, Anion Gap 13, Blood Urea Nitrogen 10, Creatinine 0.66, Estimat Glomerular Filtration Rate 94, BUN/Creatinine Ratio 15, Glucose Level 97, Calcium Level 8.5, Phosphorus Level 3.6, Magnesium Level 1.9 Microbiology 10/15/21 MRSA Screen - Final, Complete MRSA not isolated Laboratory Tests 10/14/21 23:22 10/15/21 04:56 10/16/21 05:05 A/P: Assessment: Ac STEMI (anterolateral) - self-resolving after treatment with DAPT and iv heparin - emergency card cath on 10/15/21: LMCA OK, LAD prox and mid luminal irregularities, LCX luminal irreg, RCA dominant and free of significant disease, LVEF 60%, LVEDP 28 mmHg - echo on 10/15/21: LVEF 55-60%, apical hypokinesis, grade 2 diggs dyfunction, mil d MR, mild to mod enlargement of LA, PASP 40-45 mmHg Hypertension, by history Nausea - undetermined etiology - resolved with addition of PPI Plan: * Continue DAPT, BB and statin * Continue PPI - no further c/o nausea * Monitor labs * Hosp service consulted to eval gen malaise and nausea Clinical Quality Measures AMI/AHF: ASA po Prior to arrival: LEEROY Correa MD FACP [facility] Oct 16, 2021 09:15
[2021-10-16] MEDS ORDERED: HEParin 1000 UNIT/ML (10ML VIAL) FOR BOLUS IV SCH (13:45)
[2021-10-16] MEDS ORDERED: NITRO DRIP 25000 MCG/D5W 250 ML IV ONE (13:45)
[2021-10-16] MEDS ORDERED: HEParin DRIP 25000 UNIT/500ML 500 ML IV SCH (13:45)
[2021-10-16] MEDS: HEParin 1000 UNIT/ML (10ML VIAL) FOR BOLUS IV NR ×2 (13:48→13:51)
[2021-10-16] MEDS: NITRO DRIP 25000 MCG/D5W 250 ML IV SCH ×2 (14:15→14:34)
[2021-10-16] MEDS: morphine INJ 4 MG/ML 1 ML (VIAL/SYRINGE) IVP PRN ×3 (15:10→18:28)
[2021-10-16] MEDS ORDERED: METO50TA15 PO (15:15)
[2021-10-16] MEDS ORDERED: LOVA10TA PO (15:15)
[2021-10-16] MEDS ORDERED: DICL75TA2 PO (15:15)
--- NOTE | 2021-10-16 18:47 | Progress Note - Cardiology ---
Cardiology SOAP Progress Note Subjective: Recurrent cp: midsternal, parasternal, shoulders; varying from mild to mod severe; better with iv NTG and heparin No palp or syncope No shortness of breath Nausea better today Objective: I&O/Vital Signs 10/16/21 10/16/21 10/16/21 10/16/21 07:00 07:30 08:00 08:00 Pulse 52 67 Resp 18 B/P (MAP) 129/78 (95) Pulse Ox 93 93 92 O2 Delivery Room Air Room Air Room Air 10/16/21 10/16/21 10/16/21 10/16/21 08:01 08:41 09:00 10:00 Pulse 70 74 68 Resp 13 14 B/P (MAP) 136/64 (88) 137/71 (93) Pulse Ox 95 97 O2 Delivery Nasal Cannula Room Air Room Air O2 Flow Rate 2.00 10/16/21 10/16/21 10/16/21 10/16/21 11:00 12:00 12:05 13:00 Temp 36.5 Pulse 52 78 81 Resp 15 18 41 B/P (MAP) 114/64 (81) 145/70 (95) 144/66 (92) Pulse Ox 91 97 97 97 O2 Delivery Room Air Room Air Room Air Room Air 10/16/21 10/16/21 10/16/21 10/16/21 13:11 13:49 14:00 14:06 Pulse 71 64 69 71 Resp 18 B/P (MAP) 144/66 125/59 (81) 135/85 Pulse Ox 93 O2 Delivery Room Air 10/16/21 10/16/21 10/16/21 10/16/21 14:34 14:44 14:45 15:00 Pulse 90 65 64 Resp 23 B/P (MAP) 89/42 125/59 113/55 (74) Pulse Ox 88 94 O2 Delivery Nasal Cannula Nasal Cannula O2 Flow Rate 2.00 2.00 10/16/21 10/16/21 16:00 16:04 Temp 37.0 Pulse Ox 97 O2 Delivery Nasal Cannula O2 Flow Rate 2.00 10/16/21 00:00 Intake Total 1790 ml Output Total 500 ml Balance 1290 ml Side: right Condition: DP/PT pulses palpable, extremity w/d/p Bruising: mild bruising Constitutional: AAO x 3, well-developed, well-nourished Respiratory: No accessory muscle use; other (good, bilat air entry) Cardiovascular: regular rate-rhythm, S1 and S2, systolic murmur (soft ALTAGRACIA at card base) Gastrointestional: No tender; soft; No guarding, No rebound; audible bowel sounds Extremities: No clubbing, No cyanosis, No significant edema Neurologic/Psychiatric: oriented x 3, other (moves all limbs equally) Skin: No rash on exposed areas, No ulcerations on exposed areas Results/Procedures: Labs Laboratory Tests 10/16/21 05:05: White Blood Count 5.0, Red Blood Count 3.79L, Hemoglobin 11.1L, Hematocrit 34L, Mean Corpuscular Volume 88, Mean Corpuscular Hemoglobin 29, Mean Corpuscular Hemoglobin Concent 33, Red Cell Distribution Width 12.7, Platelet Count 193, Mean Platelet Volume 9.9, Sodium Level 139, Potassium Level 3.9, Chloride Level 105, Carbon Dioxide Level 21, Anion Gap 13, Blood Urea Nitrogen 10, Creatinine 0.66, Estimat Glomerular Filtration Rate 94, BUN/Creatinine Ratio 15, Glucose Level 97, Calcium Level 8.5, Phosphorus Level 3.6, Magnesium Level 1.9 10/16/21 13:51: Activated Partial Thromboplast Time 24 10/16/21 18:20: Microbiology 10/15/21 MRSA Screen - Final, Complete MRSA not isolated A/P: Assessment: Ac STEMI (anterolateral) - self-resolving after treatment with DAPT and iv heparin - emergency card cath on 10/15/21: LMCA OK, LAD prox and mid luminal irregularities, occlusion of tiny subbranch of a diag, LCX luminal irreg, RCA dominant and free of significant disease, mild apical hypokinesis, LVEF 60%, LVEDP 28 mmHg - echo on 10/15/21: LVEF 55-60%, apical hypokinesis, grade 2 diggs dyfunction, mild MR, mild to mod enlargement of LA, PASP 40-45 mmHg Hypertension, by history Nausea - undetermined etiology - resolved with addition of PPI Plan: * iv NTG and heparin added to regimen * Continue DAPT, BB and statin * Continue PPI * Continue to monitor closely Clinical Quality Measures AMI/AHF: ASA po Prior to arrival: LEEROY Correa MD FACP [facility] Oct 16, 2021 18:46
--- NOTE | 2021-10-16 23:06 | Progress Note ---
Subjective Subjective/Events-last exam She is feeling much better this AM. Denies any N/V. No return of chest pain. Review of Systems Pulmonary: No Dyspnea, No Cough Cardiovascular: No: Chest Pain, Palpitations Gastrointestinal: No: Nausea, Vomiting, Abdominal Pain, Diarrhea, Constipation Objective Exam Last Set of Vital Signs Vital Signs Date Time Temp Pulse Resp B/P (MAP) Pulse Ox O2 Delivery O2 Flow Rate FiO2 10/16/21 20:37 Nasal Cannula 2.00 10/16/21 20:00 36.5 10/16/21 20:00 97 10/16/21 19:00 73 10/16/21 15:00 23 Capillary Refill : Less Than 3 Seconds I&O Intake and Output 10/16/21 00:00 Intake Total 3060 ml Output Total 500 ml Balance 2560 ml Intake Oral 1260 ml IV Total 1800 ml Output Urine Total 500 ml # Voids 2 Daily Weight Change No General: Alert, Oriented X3, No Acute Distress Lungs: Clear to Auscultation, Normal Air Movement Heart: Regular Rate, No Murmurs Abdomen: Normal Bowel Sounds, Soft, No Tenderness, No Masses Neuro: Normal Speech Psych/Mental Status: Mental Status NL, Mood NL Results/Procedures Lab Laboratory Tests 10/16/21 05:05: White Blood Count 5.0, Red Blood Count 3.79L, Hemoglobin 11.1L, Hematocrit 34L, Mean Corpuscular Volume 88, Mean Corpuscular Hemoglobin 29, Mean Corpuscular Hemoglobin Concent 33, Red Cell Distribution Width 12.7, Platelet Count 193, Mean Platelet Volume 9.9, Sodium Level 139, Potassium Level 3.9, Chloride Level 105, Carbon Dioxide Level 21, Anion Gap 13, Blood Urea Nitrogen 10, Creatinine 0.66, Estimat Glomerular Filtration Rate 94, BUN/Creatinine Ratio 15, Glucose Level 97, Calcium Level 8.5, Phosphorus Level 3.6, Magnesium Level 1.9 10/16/21 13:51: Activated Partial Thromboplast Time 24 10/16/21 19:17: Activated Partial Thromboplast Time 86H Microbiology 10/15/21 MRSA Screen - Final, Complete MRSA not isolated Assessment/Plan Assessment/Plan (1) Atypical chest pain Status: Acute Assessment & Plan: - STEMI activation, Dr Gan admitted patient and asked for medical consult, Cath revealed on mild CAD, New meds started 10/16: No return of chest pain, ok to discharge from medical standpoint (2) CAD (coronary artery disease) Status: Chronic Qualifiers: Qualified Codes: I25.10 - Atherosclerotic heart disease of [place] coronary artery without angina pectoris (3) Nausea & vomiting Status: Resolved Assessment & Plan: - Started on PPI, zofran and phenergen, bland diet Qualifiers: Qualified Codes: R11.2 - Nausea with vomiting, unspecified Clinical Quality Measures AMI/AHF: ASA po Prior to arrival: KELLY Ward MD Oct 16, 2021 23:06
[2021-10-17] MEDS: ACETAMINOPHEN 325 MG TABLET PO PRN (00:42)
[2021-10-17 05:36] LABS: ALBUMIN 2.9 GM/DL (3.2-4.5); POTASSIUM 3.8 MMOL/L (3.6-5.0)
[2021-10-17 05:38] LABS: CALCIUM 8.6 MG/DL (8.5-10.1)
[2021-10-17 05:39] LABS: TOTAL PROTEIN 5.6 GM/DL (6.4-8.2)
[2021-10-17 05:41] LABS: BILIRUBIN,TOTAL 0.4 MG/DL (0.1-1.0)
[2021-10-17 05:42] LABS: CREATININE SERUM 0.75 MG/DL (0.60-1.30); PHOSPHORUS 3.2 MG/DL (2.3-4.7)
[2021-10-17 05:45] LABS: MAGNESIUM 1.7 MG/DL (1.6-2.4)
[2021-10-17 05:52] LABS: INR 1.1 (0.8-1.4); PROTHROMBIN TIME PATIENT 14.4 SEC (12.2-14.7)
[2021-10-17 05:58] LABS: HEMATOCRIT 30 % (35-52); HEMOGLOBIN 9.9 g/dL (11.5-16.0); MEAN CORPUSCULAR HEMOGLOBIN 29 pg (25-34); MEAN CORPUSCULAR HGB CONC 33 g/dL (32-36); MEAN CORPUSCULAR VOLUME 88 fL (80-99); MEAN PLATELET VOLUME 9.8 fL (9.0-12.2); PLATELET COUNT 208 10^3/uL (130-400); WHITE BLOOD COUNT 6.9 10^3/uL (4.3-11.0)
[2021-10-17] MEDS: POTASSIUM CL 10MEQ/50ML IVPB 50 ML IV SCH (05:59)
[2021-10-17] MEDS: KCL 20 MEQ TAB (K-DUR) PO SCH (05:59)
[2021-10-17] MEDS: MAGNESIUM 1 GM/100 ML IVPB 100 ML IV SCH ×3 (06:02→07:57)
[2021-10-17] MEDS ORDERED: FAMOTIDINE 20 MG (PEPCID) TABLET PO NR (09:00)
[2021-10-17] MEDS: CLOPIDOGREL 75 MG (PLAVIX) TABLET PO SCH (09:05)
[2021-10-17] MEDS: ASPIRIN 81 MG CHEW (CHILDREN'S ASA) PO SCH (09:05)
[2021-10-17] MEDS: PANTOPRAZOLE 40 MG (PROTONIX) TAB PO SCH (09:05)
[2021-10-17] MEDS: meTOproloL SUCCINATE 50 MG (TOPROL XL) TAB PO SCH (09:05)
--- NOTE | 2021-10-17 09:10 | Progress Note - Cardiology ---
Cardiology SOAP Progress Note Subjective: Sitting up in bed eating breakfast No c/o CP or SOB this morning Has reported chest discomfort as more epigastric discomfort Objective: I&O/Vital Signs 10/16/21 10/16/21 10/16/21 10/16/21 22:00 23:00 23:15 23:52 Temp 37.1 Pulse 68 73 71 Resp 23 23 20 B/P (MAP) 102/51 (72) 83/46 (62) 96/47 (67) Pulse Ox 92 94 95 O2 Delivery Nasal Cannula Nasal Cannula Nasal Cannula O2 Flow Rate 2.00 2.00 2.00 10/17/21 10/17/21 10/17/21 10/17/21 00:00 00:00 00:00 01:00 Pulse 71 71 Resp 31 18 B/P (MAP) 102/42 (62) 99/45 (66) Pulse Ox 94 97 92 O2 Delivery Nasal Cannula Nasal Cannula Nasal Cannula Nasal Cannula O2 Flow Rate 2.00 2.00 2.00 2.00 10/17/21 10/17/21 10/17/21 10/17/21 01:00 02:00 03:00 04:00 Pulse 71 73 59 Resp 20 16 B/P (MAP) 99/47 (62) 101/49 (65) Pulse Ox 92 97 97 O2 Delivery Nasal Cannula Nasal Cannula Nasal Cannula O2 Flow Rate 2.00 2.00 2.00 10/17/21 10/17/21 10/17/21 10/17/21 04:00 04:39 05:00 06:00 Temp 36.4 Pulse 75 70 61 Resp 20 28 28 B/P (MAP) 109/55 (67) 117/58 (77) 120/53 (75) Pulse Ox 95 96 97 O2 Delivery Nasal Cannula Nasal Cannula Nasal Cannula O2 Flow Rate 2.00 2.00 2.00 10/17/21 10/17/21 10/17/21 07:20 07:53 08:01 Temp 36.7 Pulse 66 Pulse Ox 95 O2 Delivery Nasal Cannula O2 Flow Rate 2.00 10/16/21 23:59 Intake Total 780 ml Output Total 300 ml Balance 480 ml Side: right Condition: DP/PT pulses palpable, extremity w/d/p Bruising: mild bruising Constitutional: AAO x 3, well-developed, well-nourished Respiratory: No accessory muscle use; other (good, bilat air entry) Cardiovascular: regular rate-rhythm, S1 and S2, systolic murmur (soft ALTAGRACIA at card base) Gastrointestional: No tender; soft; No guarding, No rebound; audible bowel sounds Extremities: No clubbing, No cyanosis, No significant edema Neurologic/Psychiatric: oriented x 3, other (moves all limbs equally) Skin: No rash on exposed areas, No ulcerations on exposed areas Results/Procedures: Labs Laboratory Tests 10/16/21 13:51: Activated Partial Thromboplast Time 24 10/16/21 19:17: Activated Partial Thromboplast Time 86H 10/17/21 00:35: Activated Partial Thromboplast Time 74H 10/17/21 04:55: White Blood Count 6.9, Red Blood Count 3.38L, Hemoglobin 9.9L, Hematocrit 30L, Mean Corpuscular Volume 88, Mean Corpuscular Hemoglobin 29, Mean Corpuscular Hemoglobin Concent 33, Red Cell Distribution Width 12.8, Platelet Count 208, Mean Platelet Volume 9.8, Prothrombin Time 14.4, INR Comment 1.1, Sodium Level 138, Potassium Level 3.8, Chloride Level 102, Carbon Dioxide Level 28, Anion Gap 8, Blood Urea Nitrogen 10, Creatinine 0.75, Estimat Glomerular Filtration Rate 85, BUN/Creatinine Ratio 13, Glucose Level 120H, Calcium Level 8.6, Corrected Calcium 9.5, Phosphorus Level 3.2, Magnesium Level 1.7, Total Bilirubin 0.4, A spartate Amino Transf (AST/SGOT) 31, Alanine Aminotransferase (ALT/SGPT) 19, Alkaline Phosphatase 55, Total Protein 5.6L, Albumin 2.9L Microbiology 10/15/21 MRSA Screen - Final, Complete MRSA not isolated Laboratory Tests 10/16/21 05:05 10/17/21 04:55 A/P: Assessment: Ac STEMI (anterolateral) - self-resolving after treatment with DAPT and iv heparin - emergency card cath on 10/15/21: LMCA OK, LAD prox and mid luminal irregula rities, occlusion of tiny subbranch of a diag, LCX luminal irreg, RCA dominant and free of significant disease, mild apical hypokinesis, LVEF 60%, LVEDP 28 mmHg - echo on 10/15/21: LVEF 55-60%, apical hypokinesis, grade 2 diggs dyfunction, mild MR, mild to mod enlargement of LA, PASP 40-45 mmHg Chest pain/epigastric pain - stop IV Heparin and ntg - Continue PPI add Pepcid and mylanta Hypertension, by history Nausea - undetermined etiology - resolved with addition of PPI Plan: * Chest discomfort is reported as more epigastric discomfort * Continue PPI, add pepcid and mylanta to the regimen * Stop iv NTG and heparin added to regimen * monitor H/H falling - monitor closely * Continue DAPT, BB and statin * Continue to monitor closely Clinical Quality Measures AMI/AHF: ASA po Prior to arrival: MELISSA Rust Oct 17, 2021 09:10
[2021-10-17] MEDS: ENOXAPARIN 100 MG/1 ML (LOVENOX) SYR SC SCH ×2 (09:19→21:55)
[2021-10-17] MEDS: ANTACID SUSP 30 ML UDC (MYLANTA) PO SCH ×3 (13:03→20:25)
--- NOTE | 2021-10-17 16:46 | Progress Note - Cardiology ---
Cardiology SOAP Progress Note Subjective: No cp or palp or syncope or shortness of breath Feels much better this am Denies focal weakness Has gen malaise and weakness that is better compared to day of admission Objective: I&O/Vital Signs 10/17/21 10/17/21 10/17/21 10/17/21 05:00 06:00 07:00 07:20 Pulse 70 61 75 66 Resp 28 28 22 B/P (MAP) 117/58 (77) 120/53 (75) 100/53 (69) Pulse Ox 96 97 95 O2 Delivery Nasal Cannula Nasal Cannula Nasal Cannula O2 Flow Rate 2.00 2.00 2.00 10/17/21 10/17/21 10/17/21 10/17/21 07:53 08:00 08:01 09:00 Temp 36.7 Pulse 71 76 Resp 27 20 B/P (MAP) 124/64 (84) 136/79 (98) Pulse Ox 96 95 96 O2 Delivery Nasal Cannula Nasal Cannula Nasal Cannula O2 Flow Rate 2.00 2.00 2.00 10/17/21 10/17/21 10/17/21 10/17/21 09:21 10:00 10:40 11:00 Pulse 58 61 Resp 14 23 B/P (MAP) 128/60 (82) 158/83 (108) Pulse Ox 94 99 O2 Delivery Room Air Nasal Cannula Room Air Room Air O2 Flow Rate 2.00 10/17/21 10/17/21 10/17/21 10/17/21 11:35 12:00 12:00 13:00 Temp 36.8 Pulse 73 63 Resp 19 B/P (MAP) 129/63 (85) Pulse Ox 95 95 O2 Delivery Room Air Nasal Cannula O2 Flow Rate 2.00 10/17/21 10/17/21 10/17/21 10/17/21 13:00 14:00 15:00 15:24 Temp 36.6 Pulse 63 68 67 Resp 16 29 17 B/P (MAP) 155/76 (102) 155/84 (107) 154/71 (98) Pulse Ox 100 98 100 O2 Delivery Room Air Room Air Room Air 10/17/21 10/17/21 16:00 16:00 Pulse 77 Resp 23 B/P (MAP) 129/76 (93) Pulse Ox 95 100 O2 Delivery Nasal Cannula Room Air O2 Flow Rate 2.00 10/17/21 00:00 Intake Total 780 ml Output Total 300 ml Balance 480 ml Side: right Condition: DP/PT pulses palpable, extremity w/d/p Bruising: mild bruising Constitutional: AAO x 3, well-developed, well-nourished Respiratory: No accessory muscle use; other (good, bilat air entry) Cardiovascular: regular rate-rhythm, S1 and S2, systolic murmur (soft ALTAGRACIA at card base) Gastrointestional: No tender; soft; No guarding, No rebound; audible bowel sounds Extremities: No clubbing, No cyanosis, No significant edema Neurologic/Psychiatric: oriented x 3, other (moves all limbs equally) Skin: No rash on exposed areas, No ulcerations on exposed areas Results/Procedures: Labs Laboratory Tests 10/16/21 19:17: Activated Partial Thromboplast Time 86H 10/17/21 00:35: Activated Partial Thromboplast Time 74H 10/17/21 04:55: White Blood Count 6.9, Red Blood Count 3.38L, Hemoglobin 9.9L, Hematocrit 30L, Mean Corpuscular Volume 88, Mean Corpuscular Hemoglobin 29, Mean Corpuscular Hemoglobin Concent 33, Red Cell Distribution Width 12.8, Platelet Count 208, Mean Platelet Volume 9.8, Prothrombin Time 14.4, INR Comment 1.1, Sodium Level 138, Potassium Level 3.8, Chloride Level 102, Carbon Dioxide Level 28, Anion Gap 8, Blood Urea Nitrogen 10, Creatinine 0.75, Estimat Glomerular Filtration Rate 85, BUN/Creatinine Ratio 13, Glucose Level 120H, Calcium Level 8.6, Corrected Calcium 9.5, Phosphorus Level 3.2, Magnesium Level 1.7, Total Bilirubin 0.4, Aspartate Amino Transf (AST/SGOT) 31, Alanine Aminotransferase (ALT/SGPT) 19, Alkaline Phosphatase 55, Total Protein 5.6L, Albumin 2.9L 10/17/21 14:15: Hemoglobin 11.4L Microbiology 10/15/21 MRSA Screen - Final, Complete MRSA not isolated Laboratory Tests 10/16/21 05:05 10/17/21 04:55 10/17/21 14:15 A/P: Assessment: Ac STEMI (anterolateral) - self-resolving after treatment with DAPT and iv heparin - emergency card cath on 10/15/21: LMCA OK, LAD prox and mid luminal irr egularities, occlusion of tiny subbranch of a diag, LCX luminal irreg, RCA dominant and free of significant disease, mild apical hypokinesis, LVEF 60%, LVEDP 28 mmHg - echo on 10/15/21: LVEF 55-60%, apical hypokinesis, grade 2 diggs dyfunction, mild MR, mild to mod enlargement of LA, PASP 40-45 mmHg Chest pain/epigastric pain - stop IV Heparin and ntg - Continue PPI, add Pepcid and Mylanta Hypertension, by history Nausea - undetermined etiology - resolved with addition of PPI Plan: * Chest discomfort is reported more as epigastric discomfort * Continue PPI, add pepcid and mylanta to the regimen * Stop iv NTG and heparin added to regimen * monitor H/H falling - monitor closely * Continue DAPT, BB and statin * Continue to monitor closely Clinical Quality Measures AMI/AHF: ASA po Prior to arrival: LEEROY Correa MD FACP [facility] CCDS Oct 17, 2021 16:46
[2021-10-17] MEDS: FAMOTIDINE 20 MG (PEPCID) TABLET PO SCH (20:26)
[2021-10-18 05:32] LABS: BASOPHILS % (AUTO) 0 % (0-10); EOSINOPHILS # (AUTO) 0.1 10^3/uL (0.0-0.3); EOSINOPHILS % (AUTO) 2 % (0-10); HEMATOCRIT 34 % (35-52); HEMOGLOBIN 11.2 g/dL (11.5-16.0); LYMPHOCYTES % (AUTO) 16 % (12-44); MEAN CORPUSCULAR HEMOGLOBIN 29 pg (25-34); MEAN CORPUSCULAR HGB CONC 33 g/dL (32-36); MEAN CORPUSCULAR VOLUME 88 fL (80-99); MEAN PLATELET VOLUME 9.7 fL (9.0-12.2); MONOCYTES # (AUTO) 0.7 10^3/uL (0.0-1.0); MONOCYTES % (AUTO) 10 % (0-12); NEUTROPHILS # (AUTO) 4.4 10^3/uL (1.8-7.8); NEUTROPHILS % (AUTO) 70 % (42-75); PLATELET COUNT 225 10^3/uL (130-400); WHITE BLOOD COUNT 6.3 10^3/uL (4.3-11.0)
[2021-10-18 05:37] LABS: POTASSIUM 3.7 MMOL/L (3.6-5.0)
[2021-10-18 05:38] LABS: CALCIUM 8.8 MG/DL (8.5-10.1)
[2021-10-18 05:43] LABS: CREATININE SERUM 0.65 MG/DL (0.60-1.30); PHOSPHORUS 2.7 MG/DL (2.3-4.7)
[2021-10-18] MEDS: MAGNESIUM 1 GM/100 ML IVPB 100 ML IV SCH (06:08)
[2021-10-18] MEDS: POTASSIUM CL 10MEQ/50ML IVPB 50 ML IV SCH (06:08)
[2021-10-18] MEDS: KCL 20 MEQ TAB (K-DUR) PO SCH (06:08)
[2021-10-18] MEDS: ANTACID SUSP 30 ML UDC (MYLANTA) PO SCH ×4 (08:22→19:42)
[2021-10-18] MEDS: CLOPIDOGREL 75 MG (PLAVIX) TABLET PO SCH (08:22)
[2021-10-18] MEDS: meTOproloL SUCCINATE 50 MG (TOPROL XL) TAB PO SCH (08:22)
[2021-10-18] MEDS: PANTOPRAZOLE 40 MG (PROTONIX) TAB PO SCH (08:22)
[2021-10-18] MEDS: ENOXAPARIN 100 MG/1 ML (LOVENOX) SYR SC SCH ×2 (08:22→20:44)
[2021-10-18] MEDS: ASPIRIN 81 MG CHEW (CHILDREN'S ASA) PO SCH (08:22)
[2021-10-18] MEDS: FAMOTIDINE 20 MG (PEPCID) TABLET PO SCH ×2 (08:22→19:44)
--- NOTE | 2021-10-18 14:34 | Progress Note - Cardiology ---
Cardiology SOAP Progress Note Subjective: No cp or palp or syncope Gen malaise and weakness No n/v/d No focal weakness No groin discomfort Objective: I&O/Vital Signs 10/18/21 10/18/21 10/18/21 10/18/21 03:00 04:00 04:00 05:00 Pulse 58 68 73 Resp 10 B/P (MAP) 117/58 (78) 130/93 (107) 136/73 (97) Pulse Ox 98 97 95 94 O2 Delivery Nasal Cannula Nasal Cannula Nasal Cannula Nasal Cannula O2 Flow Rate 2.00 2.00 2.00 2.00 10/18/21 10/18/21 10/18/21 10/18/21 06:00 07:00 07:00 08:00 Pulse 58 57 70 81 Resp 17 18 26 B/P (MAP) 138/66 (90) 157/69 (98) 140/79 (99) Pulse Ox 97 95 97 O2 Delivery Nasal Cannula Nasal Cannula Nasal Cannula O2 Flow Rate 2.00 2.00 2.00 10/18/21 10/18/21 10/18/21 10/18/21 08:24 08:40 08:43 11:29 Temp 36.7 O2 Delivery Nasal Cannula Room Air Room Air O2 Flow Rate 2.00 10/18/21 10/18/21 12:00 12:44 Temp 37.0 Pulse 68 75 Resp 12 B/P (MAP) 155/74 (101) Pulse Ox 96 O2 Delivery Room Air 10/18/21 00:00 Intake Total 1222 ml Output Total 1180 ml Balance 42 ml Side: right Condition: DP/PT pulses palpable, extremity w/d/p Bruising: mild bruising Constitutional: AAO x 3, well-developed, well-nourished Respiratory: No accessory muscle use; other (good, bilat air entry) Cardiovascular: regular rate-rhythm, S1 and S2, systolic murmur (soft ALTAGRACIA at card base) Gastrointestional: No tender; soft; No guarding, No rebound; audible bowel sounds Extremities: No clubbing, No cyanosis, No significant edema Neurologic/Psychiatric: oriented x 3, other (moves all limbs equally) Skin: No rash on exposed areas, No ulcerations on exposed areas Results/Procedures: Labs Laboratory Tests 10/18/21 04:56: White Blood Count 6.3, Red Blood Count 3.86, Hemoglobin 11.2L, Hematocrit 34L, Mean Corpuscular Volume 88, Mean Corpuscular Hemoglobin 29, Mean Corpuscular Hemoglobin Concent 33, Red Cell Distribution Width 12.7, Platelet Count 225, Mean Platelet Volume 9.7, Immature Granulocyte % (Auto) 1, Neutrophils (%) (Auto) 70, Lymphocytes (%) (Auto) 16, Monocytes (%) (Auto) 10, Eosinophils (%) (Auto) 2, Basophils (%) (Auto) 0, Neutrophils # (Auto) 4.4, Lymphocytes # (Auto) 1.0, Monocytes # (Auto) 0.7, Eosinophils # (Auto) 0.1, Basophils # (Auto) 0.0, Immature Granulocyte # (Auto) 0.0, Sodium Level 138, Potassium Level 3.7, Chloride Level 102, Carbon Dioxide Level 27, Anion Gap 9, Blood Urea Nitrogen 6L , Creatinine 0.65, Estimat Glomerular Filtration Rate 94, BUN/Creatinine Ratio 9, Glucose Level 102, Calcium Level 8.8, Phosphorus Level 2.7, Magnesium Level 2.0 Microbiology 10/15/21 MRSA Screen - Final, Complete MRSA not isolated Laboratory Tests 10/17/21 04:55 10/17/21 14:15 10/18/21 04:56 A/P: Assessment: Ac STEMI (anterolateral) - self-resolving after treatment with DAPT and iv heparin - emergency card cath on 10/15/21: LMCA OK, LAD prox and mid luminal irregular ities, occlusion of tiny subbranch of a diag, LCX luminal irreg, RCA dominant and free of significant disease, mild apical hypokinesis, LVEF 60%, LVEDP 28 mmHg - echo on 10/15/21: LVEF 55-60%, apical hypokinesis, grade 2 diggs dyfunction, mild MR, mild to mod enlargement of LA, PASP 40-45 mmHg Chest pain/epigastric pain - stop IV Heparin and ntg - Continue PPI, add Pepcid and Mylanta Hypertension, by history Nausea - undetermined etiology - resolved with addition of PPI Plan: * Continue DAPT, BB and statin * Transfer to floor with tele * Continue to monitor closely Clinical Quality Measures AMI/AHF: ASA po Prior to arrival: LEEROY Correa MD FACP [facility] CCDS Oct 18, 2021 14:34
[2021-10-19 06:04] LABS: PHOSPHORUS 3.2 MG/DL (2.3-4.7)
[2021-10-19 06:05] LABS: MAGNESIUM 2.1 MG/DL (1.6-2.4)
--- NOTE | 2021-10-19 08:06 | Progress Note - Hospitalist ---
Subjective HPI/CC On Admission Date Seen by Provider: Oct 19, 2021 Time Seen by Provider: 11:00 Subjective/Events-last exam Patient doing well Labs reviewed Dr Gan to decide DC or not Objective Exam Vital Signs Vital Signs Date Time Temp Pulse Resp B/P (MAP) Pulse Ox O2 Delivery O2 Flow Rate FiO2 10/19/21 12:37 69 10/19/21 11:52 36.4 20 132/64 (86) 95 Room Air 10/19/21 09:24 0.00 Capillary Refill : Less Than 3 Seconds General Appearance: No Apparent Distress, WD/WN Respiratory: Chest Non Tender, Lungs Clear, Normal Breath Sounds, No Accessory Muscle Use, No Respiratory Distress Cardiovascular: Regular Rate, Rhythm, No Edema, No Gallop, No JVD, No Murmur, Normal Peripheral Pulses Results/Procedures Lab Patient resulted labs reviewed. Assessment/Plan Assessment and Plan Assess & Plan/Chief Complaint DC Clinical Quality Measures AMI/AHF: ASA po Prior to arrival: BERNA Contreras DO Oct 19, 2021 08:06
[2021-10-19] MEDS: ASPIRIN 81 MG CHEW (CHILDREN'S ASA) PO SCH (09:22)
[2021-10-19] MEDS: meTOproloL SUCCINATE 50 MG (TOPROL XL) TAB PO SCH (09:22)
[2021-10-19] MEDS: PANTOPRAZOLE 40 MG (PROTONIX) TAB PO SCH (09:22)
[2021-10-19] MEDS: FAMOTIDINE 20 MG (PEPCID) TABLET PO SCH ×2 (09:22→19:37)
[2021-10-19] MEDS: CLOPIDOGREL 75 MG (PLAVIX) TABLET PO SCH (09:22)
[2021-10-19] MEDS: ENOXAPARIN 100 MG/1 ML (LOVENOX) SYR SC SCH ×2 (09:22→21:14)
[2021-10-19] MEDS: ANTACID SUSP 30 ML UDC (MYLANTA) PO SCH ×4 (09:23→19:37)
--- NOTE | 2021-10-19 13:40 | Progress Note - Cardiology ---
Cardiology SOAP Progress Note Subjective: No cp or palp or syncope or shortness of breath Gen malaise is improving No n/v/d Objective: I&O/Vital Signs 10/19/21 10/19/21 10/19/21 10/19/21 03:16 07:00 07:44 09:24 Temp 36.8 36.7 Pulse 67 57 74 Resp 20 20 B/P (MAP) 139/63 (88) 125/60 (81) Pulse Ox 96 93 93 O2 Delivery Room Air Room Air Room Air O2 Flow Rate 0.00 10/19/21 10/19/21 11:52 12:37 Temp 36.4 Pulse 62 69 Resp 20 B/P (MAP) 132/64 (86) Pulse Ox 95 O2 Delivery Room Air 10/19/21 00:00 Intake Total 200 ml Balance 200 ml Side: right Condition: DP/PT pulses palpable, extremity w/d/p Bruising: mild bruising Constitutional: AAO x 3, well-developed, well-nourished Respiratory: No accessory muscle use; other (good, bilat air entry) Cardiovascular: regular rate-rhythm, S1 and S2, systolic murmur (soft ALTAGRACIA at card base) Gastrointestional: No tender; soft; No guarding, No rebound; audible bowel sounds Extremities: No clubbing, No cyanosis, No significant edema Neurologic/Psychiatric: oriented x 3, other (moves all limbs equally) Skin: No rash on exposed areas, No ulcerations on exposed areas Results/Procedures: Labs Laboratory Tests 10/19/21 05:07: Phosphorus Level 3.2, Magnesium Level 2.1 Microbiology 10/15/21 MRSA Screen - Final, Complete MRSA not isolated A/P: Assessment: Ac STEMI (anterolateral) - self-resolving after treatment with DAPT and iv heparin - emergency card cath on 10/15/21: LMCA OK, LAD prox and mid luminal ir regularities, occlusion of tiny subbranch of a diag, LCX luminal irreg, RCA dominant and free of significant disease, mild apical hypokinesis, LVEF 60%, LVEDP 28 mmHg - echo on 10/15/21: LVEF 55-60%, apical hypokinesis, grade 2 diggs dyfunction, mild MR, mild to mod enlargement of LA, PASP 40-45 mmHg Chest pain/epigastric pain - stop IV Heparin and ntg - Continue PPI, add Pepcid and Mylanta Hypertension, by history Nausea - undetermined etiology - resolved with addition of PPI Plan: * Continue DAPT, BB and statin * Advised increased ambulation. Prob discharge tomorrow Clinical Quality Measures AMI/AHF: ASA po Prior to arrival: LEEROY Correa MD FACP [facility] CCDS Oct 19, 2021 13:40
[2021-10-19 16:55] VITALS: BP 151/70
[2021-10-19 20:18] VITALS: BP 115/61
[2021-10-20] VITALS: BP 121/60
[2021-10-20 04:07] VITALS: BP 132/79
[2021-10-20 06:40] LABS: PHOSPHORUS 3.5 MG/DL (2.3-4.7)
[2021-10-20 06:42] LABS: MAGNESIUM 2.1 MG/DL (1.6-2.4)
[2021-10-20 07:19] VITALS: BP 120/59
[2021-10-20 07:42] LABS: HEMATOCRIT 35 % (35-52); HEMOGLOBIN 11.6 g/dL (11.5-16.0); MEAN CORPUSCULAR HEMOGLOBIN 29 pg (25-34); MEAN CORPUSCULAR HGB CONC 33 g/dL (32-36); MEAN CORPUSCULAR VOLUME 88 fL (80-99); PLATELET COUNT 284 10^3/uL (130-400); WHITE BLOOD COUNT 5.8 10^3/uL (4.3-11.0)
[2021-10-20] MEDS: meTOproloL SUCCINATE 50 MG (TOPROL XL) TAB PO SCH (09:18)
[2021-10-20] MEDS: PANTOPRAZOLE 40 MG (PROTONIX) TAB PO SCH (09:18)
[2021-10-20] MEDS: ASPIRIN 81 MG CHEW (CHILDREN'S ASA) PO SCH (09:18)
[2021-10-20] MEDS: CLOPIDOGREL 75 MG (PLAVIX) TABLET PO SCH (09:18)
[2021-10-20] MEDS: FAMOTIDINE 20 MG (PEPCID) TABLET PO SCH (09:18)
[2021-10-20] MEDS: ANTACID SUSP 30 ML UDC (MYLANTA) PO SCH ×2 (09:19→13:08)
[2021-10-20] MEDS: ENOXAPARIN 100 MG/1 ML (LOVENOX) SYR SC SCH (09:19)
[2021-10-20 11:18] VITALS: BP 177/81
--- NOTE | 2021-10-20 13:43 | Progress Note - Cardiology ---
Cardiology SOAP Progress Note Subjective: No cp or palp or syncope or shortness of breath No leg or groin discomfort No n/v/d Wishes to go home Objective: I&O/Vital Signs 10/20/21 10/20/21 10/20/21 10/20/21 04:07 07:19 07:25 08:00 Temp 36.6 36.8 Pulse 66 66 56 Resp 17 18 B/P (MAP) 132/79 (96) 120/59 (79) Pulse Ox 95 95 O2 Delivery Room Air Room Air Room Air 10/20/21 10/20/21 11:18 12:38 Temp 36.7 Pulse 62 62 Resp 18 B/P (MAP) 177/81 (113) Pulse Ox 96 O2 Delivery Room Air 10/20/21 00:00 Intake Total 1410 ml Output Total 1050 ml Balance 360 ml Side: right Condition: DP/PT pulses palpable, extremity w/d/p Bruising: mild bruising Constitutional: AAO x 3, well-developed, well-nourished Respiratory: No accessory muscle use; other (good, bilat air entry) Cardiovascular: regular rate-rhythm, S1 and S2, systolic murmur (soft ALTAGRACIA at card base) Gastrointestional: No tender; soft; No guarding, No rebound; audible bowel sounds Extremities: No clubbing, No cyanosis, No significant edema Neurologic/Psychiatric: oriented x 3, other (moves all limbs equally) Skin: No rash on exposed areas, No ulcerations on exposed areas Results/Procedures: Labs Laboratory Tests 10/20/21 05:39: White Blood Count 5.8, Red Blood Count 3.98, Hemoglobin 11.6, Hematocrit 35, Mean Corpuscular Volume 88, Mean Corpuscular Hemoglobin 29, Mean Corpuscular Hemoglobin Concent 33, Red Cell Distribution Width 12.7, Platelet Count 284, Mean Platelet Volume 10.0, Phosphorus Level 3.5, Magnesium Level 2.1 Microbiology 10/15/21 MRSA Screen - Final, Complete MRSA not isolated Laboratory Tests 10/20/21 05:39 A/P: Assessment: Ac STEMI (anterolateral) - self-resolving after treatment with DAPT and iv heparin - emergency card cath on 10/15/21: LMCA OK, LAD prox and mid luminal irregularities, occlusion of tiny subbranch of a diag, LCX luminal irreg, RCA dominant and free of significant disease, mild apical hypokinesis, LVEF 60%, LVEDP 28 mmHg - echo on 10/15/21: LVEF 55-60%, apical hypokinesis, grade 2 diggs dyfunction, mild MR, mild to mod enlargement of LA, PASP 40-45 mmHg Hypertension, by history Nausea and epigastric discomfort - suspect GERD - resolved with addition of PPI Plan: * Continue DAPT, BB and statin * Advised outpt f/u and to return to ER for any recurrent or new symptoms Clinical Quality Measures AMI/AHF: ASA po Prior to arrival: LEEROY Correa MD FACP [facility]S Oct 20, 2021 13:43
[2021-10-20 14:27] VITALS: BP 177/81
== END 2021-10-20 14:31 | disposition home or self-care (01) | DRG 282 ==
LOC: ER FS 23:13 → CATH 10-15 00:29 → ICU 10-15 01:49 → 4TH 10-18 10:57
PROVIDERS: ADMIT Internal Medicine Cardiovascular Disease; ATTEND Internal Medicine Cardiovascular Disease
PROC: 4A023N7 Measurement of Cardiac Sampling and Pressure, Left Heart, Percutaneous Approach (ICD-10-PCS; principal; 2021-10-15)
PROC: B2111ZZ Fluoroscopy of Multiple Coronary Arteries using Low Osmolar Contrast (ICD-10-PCS; 2021-10-15)
PROC: B2151ZZ Fluoroscopy of Left Heart using Low Osmolar Contrast (ICD-10-PCS; 2021-10-15)
DX: I21.09 ST elevation (STEMI) myocardial infarction involving other coronary artery of anterior wall (principal); I10 Essential (primary) hypertension; Z87.891 Personal history of nicotine dependence; Z20.822 Contact with and (suspected) exposure to COVID-19; I25.10 Atherosclerotic heart disease of native coronary artery without angina pectoris; R11.2 Nausea with vomiting, unspecified; R10.13 Epigastric pain
CPT/HCPCS: 36415; 71045; 80048; 80053; 80061; 83735; 83874; 84100; 84443; 84484; 85018; 85025; 85027; 85049; 85610; 85730; 87081; 87636; 93005; 93041; 93306; 93458

== ENCOUNTER 2021-12-06 18:32 | Observation (INO) | payer MEDICARE ==
[~2021-12-06] VITALS: Ht 157.5 cm; Wt 88.7 kg
[~2021-12-06 18:32] MED LIST: ASPI81TA64 PO; ATOR80TA76 PO; CLOP75TA28 PO; DICL75TA2 PO; LOVA10TA PO; METO50TA15 PO; METO50TA7 PO; PANT40TA52 PO
[2021-12-06] MEDS ORDERED: ASPIRIN 81 MG CHEW (CHILDREN'S ASA) PO ONE (18:45)
[2021-12-06] MEDS ORDERED: NITROGLYCERIN 0.4 MG SL TABS BTL 25'S SL SCH (18:45)
--- NOTE | 2021-12-06 18:52 | ED Chest Pain ---
General Chief Complaint: Chest Pain Stated Complaint: CHEST PAIN Nursing Triage Note: PT AMB TO [facility] WITH COMPLAINT OF CP. PAIN RADIATES TO RIGHT SHOUDER AND UPPER BACK. STATES PAIN STARTED THIS MORNING. PT HAD HEART ATTACK AROUND LABOR DAY. Source: patient Exam Limitations: no limitations History of Present Illness Date Seen by Provider: Dec 06, 2021 Time Seen by Provider: 18:35 Initial Comments 71-year-old female presents the emergency department for chest pain. She states just before Labor Day she was admitted to our hospital and taken to the [facility] for what appeared to be a STEMI. She had never had similar pains or cardiac issues prior to that event. Today her pain started this morning described as dull throbbing constant pain in her right chest wall with radiation to her right mid back. It does seem to be worse with exertion and goes back to her baseline mild pain with rest. No nausea vomiting diaphoresis or shortness of breath. He states it is similar to the pain that she was having when she was taken to the [facility] from the previous visit. [facility] report shows that she did not have any significant stenosis, did not require stenting. She denies any recent fevers chills cough abdominal pain, changes in bowel or bladder habits. Allergies and Home Medications Allergies Coded Allergies: No Known Drug Allergies (Unverified , 10/14/21) Patient Home Medication List Home Medication List Reviewed: Yes Aspirin (Children's Aspirin) 81 Mg Tab.chew, 81 MG PO DAILY Prescribed by: MELISSA BARNETT on 10/16/21 08 Atorvastatin Calcium (Atorvastatin Calcium) 80 Mg Tablet, 80 MG PO HS Prescribed by: MELISSA BARNETT on 10/16/21842 Clopidogrel Bisulfate (Clopidogrel) 75 Mg Tablet, 75 MG PO DAILY Prescribed by: MELISSA BARNETT on 10/16/21 08 Famotidine (Famotidine) 20 Mg Tablet, 20 MG PO BID Prescribed by: BERNA CORDOBA on 12/07/21 122 Metoprolol Succinate (Metoprolol Succinate) 50 Mg Tab.er.24h, 50 MG PO DAILY Prescribed by: MELISSA BARNETT on 10/16/21 08 Pantoprazole Sodium (Pantoprazole Sodium) 40 Mg Tablet.dr, 40 MG PO DAILY Prescribed by: BERNA CORDOBA on 12/07/21 1226 Review of Systems Review of Systems Constitutional: no symptoms reported EENTM: No Symptoms Reported Respiratory: No Symptoms Reported Cardiovascular: Chest Pain Gastrointestinal: No Symptoms Reported Genitourinary: No Symptoms Reported Musculoskeletal: no symptoms reported Skin: no symptoms reported Psychiatric/Neurological: No Symptoms Reported Endocrine: No Symptoms Reported Hematologic/Lymphatic: No Symptoms Reported Past Irjzvyw-Ckawfc-Ttzzkp Hx Patient Social History Tobacco Use?: No Use of E-Cig and/or Vaping dev: No Substance use?: No Alcohol Use?: No Pt feels they are or have been: No Family Medical History Reviewed Nursing Family Hx No Pertinent Family Hx Physical Exam Vital Signs Vital Signs - First Documented 12/06/21 18:34 Pulse 81 Resp 16 B/P (MAP) 206/99 (134) Pulse Ox 96 O2 Delivery Room Air Capillary Refill : Less Than 3 Seconds Height, Weight, BMI Height: '" Weight: lbs. oz. kg; 32.00 BMI Method: General Appearance: No Apparent Distress, WD/WN HEENT: Normal ENT Inspection, Pharynx Normal Neck: Normal Inspection, Non Tender, Supple Respiratory: Chest Non Tender, Lungs Clear, Normal Breath Sounds, No Accessory Muscle Use, No Respiratory Distress Cardiovascular: Regular Rate, Rhythm, No Edema, No Gallop, No JVD, No Murmur, Normal Peripheral Pulses, Other (Significant hypertension) Gastrointestinal: Normal Bowel Sounds, No Organomegaly, No Pulsatile Mass, Non Tender, Soft Extremity: Normal Capillary Refill, Normal Inspection, Normal Range of Motion, Non Tender, No Calf Tenderness, No Pedal Edema Neurologic/Psychiatric: Alert, Oriented x3, No Motor/Sensory Deficits, Normal Mood/Affect Skin: Normal Color, Warm/Dry Lymphatic: No Adenopathy Progress/Results/Core Measures Results/Orders Lab Results Laboratory Tests Test 12/06/21 18:45 Range/Units White Blood Count 5.3 4.3-11.0 10^3/uL Red Blood Count 4.53 3.80-5.11 10^6/uL Hemoglobin 13.0 11.5-16.0 g/dL Hematocrit 40 35-52 % Mean Corpuscular Volume 89 80-99 fL Mean Corpuscular Hemoglobin 29 25-34 pg Mean Corpuscular Hemoglobin Concent 32 32-36 g/dL Red Cell Distribution Width 12.8 10.0-14.5 % Platelet Count 241 130-400 10^3/uL Mean Platelet Volume 9.7 9.0-12.2 fL Immature Granulocyte % (Auto) 0 % Neutrophils (%) (Auto) 61 42-75 % Lymphocytes (%) (Auto) 29 12-44 % Monocytes (%) (Auto) 8 0-12 % Eosinophils (%) (Auto) 2 0-10 % Basophils (%) (Auto) 0 0-10 % Neutrophils # (Auto) 3.3 1.8-7.8 10^3/uL Lymphocytes # (Auto) 1.5 1.0-4.0 10^3/uL Monocytes # (Auto) 0.4 0.0-1.0 10^3/uL Eosinophils # (Auto) 0.1 0.0-0.3 10^3/uL Basophils # (Auto) 0.0 0.0-0.1 10^3/uL Immature Granulocyte # (Auto) 0.0 0.0-0.1 10^3/uL D-Dimer 0.28 0.00-0.49 UG/ML Sodium Level 140 135-145 MMOL/L Potassium Level 4.2 3.6-5.0 MMOL/L Chloride Level 108 H 98-107 MMOL/L Carbon Dioxide Level 22 21-32 MMOL/L Anion Gap 10 5-14 MMOL/L Blood Urea Nitrogen 11 7-18 MG/DL Creatinine 0.80 0.60-1.30 MG/DL Estimat Glomerular Filtration Rate 79 BUN/Creatinine Ratio 14 Glucose Level 96 70-105 MG/DL Calcium Level 8.9 8.5-10.1 MG/DL Corrected Calcium 9.0 8.5-10.1 MG/DL Total Bilirubin 0.4 0.1-1.0 MG/DL Aspartate Amino Transf (AST/SGOT) 16 5-34 U/L Alanine Aminotransferase (ALT/SGPT) 13 0-55 U/L Alkaline Phosphatase 70 40-136 U/L Creatine Kinase MB 1.2 <6.6 NG/ML Troponin I < 0.028 <0.028 NG/ML B-Type Natriuretic Peptide 208.6 H <100.0 PG/ML Total Protein 6.9 6.4-8.2 GM/DL Albumin 3.9 3.2-4.5 GM/DL Lipase 23 8-78 U/L My Orders Orders - ALEXANDER ALLISON DO Ekg Tracing (12/06/21 18:35) Comprehensive Metabolic Panel (12/06/21 18:44) Cbc With Automated Diff (12/06/21 18:44) Lipase (12/06/21 18:44) Chest 1 View, Ap/Pa Only (12/06/21 18:44) Troponin I [place] (12/06/21 18:44) Creatine Kinase Mb (12/06/21 18:44) Aspirin Chewable Tablet (Baby Aspirin Ch (12/06/21 18:45) Nitroglycerin 0.4 Mg Btl 25's (Nitrostat (12/06/21 18:45) Fibrin Degradation Products (12/06/21 20:30) Bnp Desi (12/06/21 20:31) Ed Admission (Communication) (12/06/21 20:31) Vital Signs/I&O 12/06/21 18:34 Pulse 81 Resp 16 B/P (MAP) 206/99 (134) Pulse Ox 96 O2 Delivery Room Air Blood Pressure Mean: 134 Comment Sinus rhythm with a rate of 80 bpm. Normal intervals. Normal axis. T wave inversions in the precordial leads, V1 through V5. No ST changes. No ectopy. Diagnostic Imaging Diagonstic Imaging: Xray Plain Films/CT/US/NM/MRI: chest Comments Negative for any acute findings Departure Communication (Admissions) I spoke with cardiology who does not really think that her pain is cardiac in nature but does believe that she likely needs to be admitted to the hospital for further evaluation and treatment. I spoke to Dr. Cordoba who accepts the patient in admission. She has been hemodynamically stable. EKG shows T wave versions diffusely about the precordial leads but no ST segment changes. Her pain did not really improve with nitroglycerin but it did help her blood pressure drastically. She does not really have any stigmata of pulmonary embolus, DVT. No pneumothorax, pneumonia. No evidence for heart failure. She will be admitted to the hospital service otherwise stable condition Impression Primary Impression: Chest pain Qualified Codes: R07.9 - Chest pain, unspecified Disposition: ADMITTED INPATIENT Condition: Stable Admissions Decision to Admit Reason: Admit from ER (General) Departure-Patient Inst. Referrals: HIEU ESCALERA MD (PCP/Family) Primary Care Physician Scripts Famotidine (Famotidine) 20 Mg Tablet 20 MG PO BID, #60 TAB Prov: BERNA CORDOBA DO 12/07/21 Pantoprazole Sodium (Pantoprazole Sodium) 40 Mg Tablet. 40 MG PO DAILY, #60 TAB 1 Refill Prov: BERNA CORDOBA DO 12/07/21 ALEXANDER ALLISON DO Dec 06, 2021 18:52
[2021-12-06 18:54] LABS: BASOPHILS % (AUTO) 0 % (0-10); EOSINOPHILS # (AUTO) 0.1 10^3/uL (0.0-0.3); EOSINOPHILS % (AUTO) 2 % (0-10); HEMATOCRIT 40 % (35-52); LYMPHOCYTES # (AUTO) 1.5 10^3/uL (1.0-4.0); LYMPHOCYTES % (AUTO) 29 % (12-44); MEAN CORPUSCULAR HEMOGLOBIN 29 pg (25-34); MEAN CORPUSCULAR HGB CONC 32 g/dL (32-36); MEAN CORPUSCULAR VOLUME 89 fL (80-99); MEAN PLATELET VOLUME 9.7 fL (9.0-12.2); MONOCYTES # (AUTO) 0.4 10^3/uL (0.0-1.0); MONOCYTES % (AUTO) 8 % (0-12); NEUTROPHILS # (AUTO) 3.3 10^3/uL (1.8-7.8); NEUTROPHILS % (AUTO) 61 % (42-75); PLATELET COUNT 241 10^3/uL (130-400); WHITE BLOOD COUNT 5.3 10^3/uL (4.3-11.0)
--- NOTE | 2021-12-06 19:16 | Diagnostic Imaging Report ---
INDICATION: Chest pain. COMPARISON: 10/14/2021. FINDINGS: Appearance of the chest is stable. There is enlargement of the cardiac silhouette but no current findings of edema or failure. There is flattening of the diaphragms suggesting air trapping that may relate to COPD. There is no alveolar pneumonia. There is no effusion. No pneumothorax. IMPRESSION: 1. Flattened diaphragms suggesting air trapping which may relate to COPD. 2. Stable enlargement of the cardiac silhouette. 3. No findings of pneumonia or edema. Dictated by: Dictated on workstation # [id number]
[2021-12-06 19:52] LABS: ALBUMIN 3.9 GM/DL (3.2-4.5); CHLORIDE 108 MMOL/L (98-107); POTASSIUM 4.2 MMOL/L (3.6-5.0); SODIUM 140 MMOL/L (135-145)
[2021-12-06 19:54] LABS: CALCIUM 8.9 MG/DL (8.5-10.1)
[2021-12-06 19:55] LABS: GLUCOSE 96 MG/DL (70-105); TOTAL PROTEIN 6.9 GM/DL (6.4-8.2)
[2021-12-06 19:56] LABS: CARBON DIOXIDE 22 MMOL/L (21-32)
[2021-12-06 19:57] LABS: BILIRUBIN,TOTAL 0.4 MG/DL (0.1-1.0)
[2021-12-06 19:58] LABS: ALKALINE PHOSPHATASE 70 U/L (40-136); GFR ESTIMATED 79
[2021-12-06 20:00] LABS: BUN/CREATININE RATIO 14
[2021-12-06 20:01] LABS: ALANINE AMINOTRANSFERASE 13 U/L (0-55)
[2021-12-06 20:02] LABS: LIPASE 23 U/L (8-78)
[2021-12-06 20:10] LABS: CREATINE KINASE MB 1.2 NG/ML (<6.6)
[2021-12-06 21:00] VITALS: BP 151/86
[2021-12-06] MEDS ORDERED: NITROGLYCERIN 0.4 MG SL TABS BTL 25'S SL PRN (21:15)
[2021-12-06] MEDS ORDERED: CALCIUM CARBONATE 500 MG (TUMS) TAB.CHEW PO PRN (21:15)
[2021-12-06] MEDS ORDERED: MELATONIN 3 MG TABLET PO PRN (21:15)
[2021-12-06] MEDS ORDERED: LORazepam 0.5 MG (ATIVAN) TABLET PO PRN (21:15)
[2021-12-06] MEDS ORDERED: ONDANSETRON 4 MG (ZOFRAN) ORAL DISSOLVE TAB PO PRN (21:15)
[2021-12-06] MEDS ORDERED: morphine IMMEDIATE RELEASE 15 MG TABLET PO PRN (21:15)
[2021-12-06] MEDS ORDERED: ACETAMINOPHEN 325 MG TABLET PO PRN (21:15)
[2021-12-06] MEDS ORDERED: diphenhydrAMINE 50 MG/ML INJ (BENADRYL) IVP PRN (21:15)
[2021-12-06] MEDS ORDERED: hydrALAZINE (APESOLINE) 20 MG/ML VIAL IV PRN (21:15)
[2021-12-06] MEDS ORDERED: ONDANSETRON 4 MG/2 ML (SDV) Z0FRAN IV PRN (21:15)
[2021-12-06] MEDS ORDERED: LACTULOSE SYRUP 10GM/15ML (ENULOSE) 30ML UDC PO PRN (21:15)
[2021-12-06] MEDS ORDERED: PATIENT MAY USE OWN MEDS, ALL PO SCH (21:15)
[2021-12-06] MEDS ORDERED: morphine INJ 4 MG/ML 1 ML (VIAL/SYRINGE) IV PRN (21:15)
[2021-12-06] MEDS ORDERED: cloNIDine 0.1 MG (CATAPRES) TAB PO PRN (21:15)
[2021-12-06] MEDS ORDERED: MILK OF MAGNESIA 400 MG/5 ML 30 ML UDC PO PRN (21:15)
[2021-12-06] MEDS ORDERED: BISACODYL 10 MG SUPP (DULCOLAX) PR PRN (21:15)
[2021-12-06] MEDS ORDERED: diphenhydrAMINE 25 MG TAB (BENADRYL) PO PRN (21:15)
[2021-12-06] MEDS ORDERED: ANTACID SUSP 30 ML UDC (MYLANTA) PO PRN (21:15)
[2021-12-06] MEDS ORDERED: polyethylene glycoL POWDER 17 GM (MIRALAX) PACK PO PRN (21:15)
[2021-12-06 21:40] VITALS: BP 206/99
[2021-12-06] MEDS: ENOXAPARIN 40 MG/0.4 ML (LOVENOX) SYR SC SCH (22:36)
[2021-12-07] VITALS: BP 146/72
[2021-12-07 04:00] VITALS: BP 140/70
[2021-12-07 05:24] LABS: BASOPHILS % (AUTO) 0 % (0-10); EOSINOPHILS # (AUTO) 0.1 10^3/uL (0.0-0.3); EOSINOPHILS % (AUTO) 2 % (0-10); HEMATOCRIT 37 % (35-52); HEMOGLOBIN 11.5 g/dL (11.5-16.0); LYMPHOCYTES # (AUTO) 1.2 10^3/uL (1.0-4.0); LYMPHOCYTES % (AUTO) 31 % (12-44); MEAN CORPUSCULAR HEMOGLOBIN 28 pg (25-34); MEAN CORPUSCULAR HGB CONC 32 g/dL (32-36); MEAN CORPUSCULAR VOLUME 90 fL (80-99); MONOCYTES # (AUTO) 0.3 10^3/uL (0.0-1.0); MONOCYTES % (AUTO) 9 % (0-12); NEUTROPHILS # (AUTO) 2.3 10^3/uL (1.8-7.8); NEUTROPHILS % (AUTO) 58 % (42-75); PLATELET COUNT 182 10^3/uL (130-400)
[2021-12-07 05:35] LABS: CHLORIDE 109 MMOL/L (98-107); SODIUM 141 MMOL/L (135-145)
[2021-12-07 05:36] LABS: ALBUMIN 3.3 GM/DL (3.2-4.5)
[2021-12-07 05:37] LABS: CALCIUM 8.9 MG/DL (8.5-10.1)
[2021-12-07 05:38] LABS: GLUCOSE 93 MG/DL (70-105); TOTAL PROTEIN 6.3 GM/DL (6.4-8.2); TRIGLYCERIDES 87 MG/DL (<150); VLDL CHOLESTEROL 17 MG/DL (5-40)
[2021-12-07 05:39] LABS: CARBON DIOXIDE 22 MMOL/L (21-32)
[2021-12-07 05:40] LABS: BILIRUBIN,TOTAL 0.4 MG/DL (0.1-1.0)
--- NOTE | 2021-12-07 05:41 | Short Stay Summary-Hospitalist ---
History of Present Illness HPI/Chief Complaint Chief complaint: Chest pain HPI: This is a 71-year-old female with recent RI status post cardiac catheterization who presented to the ER with chest pain. She reports it is burning in nature and feels like it may be related to stomach acid. Labs have been reviewed and cardiology Dr. Gan will see patient. Source: patient Exam Limitations: no limitations Date Seen 12/07/21 Time Seen by a Provider: 11:00 Attending Physician Moose Oglesby MD PCP Admitting Physician: Jeannie Murray DO Attending Physician: Jeannie Murray DO Referring Physician Date of Admission Dec 06, 2021 at 20:32 Home Medications & Allergies Home Medications Reviewed patient Home Medication Reconciliation performed by pharmacy medication reconciliations wireless cellular technician and/or nursing. Patients Allergies have been reviewed. Allergies Allergies Coded Allergies No Known Drug Allergies (Unverified10/14/21) Past Bykxtzo-Lybekb-Bvrwwh Hx Patient Social History Marrital Status: single Employed/Student: retired Tobacco Use?: No Smoking Status: Never a Smoker Use of E-Cig and/or Vaping dev: No Substance use?: No Alcohol Use?: No Pt feels they are or have been: No Immunizations Up To Date Tetanus Booster (TDap): More Than 5 Years Hepatitis A: No Hepatitis B: No Current Status status: No Advance Directives: No Communicates: Verbally Primary Language: Monegasque Preferred Spoken Language: Monegasque Is interpretation needed?: No Sensory deficits: Vision impairment Additional sensory deficits: glasses, with patient Implanted or Applied Medical D: None Past Medical History Coronary Artery Disease, Heart Attack, High Cholesterol, Hypertension N/A Family Medical History Reviewed Nursing Family Hx No Pertinent Family Hx Review of Systems Constitutional: see HPI, malaise, weakness EENTM: no symptoms reported Respiratory: no symptoms reported Cardiovascular: chest pain Gastrointestinal: no symptoms reported Genitourinary: no symptoms reported Musculoskeletal: no symptoms reported Skin: no symptoms reported Psychiatric/Neurological: No Symptoms Reported All Other Systems Reviewed Negative Unless Noted: Yes Physical Exam Physical Exam Vital Signs Vital Signs - First Documented 12/06/21 12/06/21 12/07/21 18:34 21:40 00:00 Temp 37.0 Pulse 81 Resp 16 B/P (MAP) 206/99 (134) Pulse Ox 96 O2 Delivery Room Air FiO2 21 Capillary Refill : Less Than 3 Seconds Height, Weight, BMI Height: '" Weight: lbs. oz. kg; 35.75 BMI Method: General Appearance: No Apparent Distress, WD/WN HEENT: Normal ENT Inspection, Pharynx Normal Neck: Normal Inspection, Non Tender, Supple Respiratory: Chest Non Tender, Lungs Clear, Normal Breath Sounds, No Accessory Muscle Use, No Respiratory Distress Cardiovascular: Regular Rate, Rhythm, No Edema, No Gallop, No JVD, No Murmur, Normal Peripheral Pulses, Other (Significant hypertension) Gastrointestinal: Normal Bowel Sounds, No Organomegaly, No Pulsatile Mass, Non Tender, Soft Extremity: Normal Capillary Refill, Normal Inspection, Normal Range of Motion, Non Tender, No Calf Tenderness, No Pedal Edema Neurologic/Psychiatric: Alert, Oriented x3, No Motor/Sensory Deficits, Normal Mood/Affect Skin: Normal Color, Warm/Dry Lymphatic: No Adenopathy Results Results/Procedures Labs Laboratory Tests 12/06/21 18:45 12/07/21 04:47 Patient resulted labs reviewed. Short Stay Diagnosis Discharge Diagnosis-Short Stay Admission Diagnosis Assessment: Chest pain rule out acute coronary syndrome CAD Hypertension GERD Final Discharge Diagnosis Assessment: Chest pain rule out acute coronary syndrome CAD Hypertension GERD Conclusion Plan Supportive care Clinical Quality Measures AMI/AHF: ASA po Prior to arrival: Yes JEANNIE MURRAY DO Dec 07, 2021 05:41
[2021-12-07 05:42] LABS: ALKALINE PHOSPHATASE 60 U/L (40-136); CREATININE SERUM 0.76 MG/DL (0.60-1.30); GFR ESTIMATED 84
[2021-12-07 05:43] LABS: BUN/CREATININE RATIO 14; CHOLESTEROL 145 MG/DL (< 200)
[2021-12-07 05:44] LABS: HDL CHOLESTEROL 62 MG/DL (40-60)
[2021-12-07 05:45] LABS: ALANINE AMINOTRANSFERASE 11 U/L (0-55)
[2021-12-07 07:44] VITALS: BP 140/70
[2021-12-07] MEDS: SENNOSIDES 8.6 MG (SENOKOT) TAB PO SCH ×2 (10:46→20:30)
[2021-12-07] MEDS: DOCUSATE SODIUM 100 MG (COLACE) CAP PO SCH ×2 (10:46→20:29)
[2021-12-07] MEDS ORDERED: PANTOPRAZOLE 40 MG (PROTONIX) TAB PO NR (11:00)
[2021-12-07] MEDS ORDERED: FAMOTIDINE 20 MG (PEPCID) TABLET PO NR (11:00)
[2021-12-07] MEDS: ASPIRIN E.C. 81 MG (ECOTRIN) TAB PO SCH (11:11)
[2021-12-07 11:53] VITALS: BP 111/77
[2021-12-07] MEDS: ACETAMINOPHEN 325 MG TABLET PO SCH ×2 (12:20→20:29)
[2021-12-07] MEDS ORDERED: PANT40TA52 PO (12:26)
[2021-12-07] MEDS ORDERED: FAMO20TA5 PO (12:26)
--- NOTE | 2021-12-07 13:36 | Consultation-Cardiology ---
HPI-Cardiology Cardiology Consultation: Date of Consultation 12/07/21 Time Seen by a Provider: 12:00 Date of Admission Attending Physician Moose Oglesby MD Admitting Physician Admitting Physician: Jeannie Cordoba DO Attending Physician: Jeannie Cordoba DO Consulting Physician LEEROY FUENTES MD, MA, FACP, FACC, FSCAI, CCDS HPI: Chief Complaint: Chest discomfort 71 yo woman with onset of chest discomfort after a bowl of tomato soup yesterday, still persistent, but slowly fading away. No radiation. No associated symptoms. No palp or shortness of breath. Mild intermittent nausea (chronic); no v/d. No focal weakness. No swelling ADG-Zxvppo-Jxolio Hx Patient Social History Smoking Status: Never a Smoker Have you traveled recently?: No Alcohol Use?: No Pt feels they are or have been: No Past Medical History PMH As described under Assessment. Family Medical History Family Medical History: She does not report fam h/o early CAD or SCD Allergies and Home Medications Allergies Coded Allergies: No Known Drug Allergies (Unverified , 10/14/21) Patient Home Medication List Home Medication List Reviewed: Yes Aspirin (Children's Aspirin) 81 Mg Tab.chew, 81 MG PO DAILY Prescribed by: MELISSA BARNETT on 10/16/21 0843 Atorvastatin Calcium (Atorvastatin Calcium) 80 Mg Tablet, 80 MG PO HS Prescribed by: MELISSA BARNETT on 10/16/21 0843 Clopidogrel Bisulfate (Clopidogrel) 75 Mg Tablet, 75 MG PO DAILY Prescribed by: MELISSA BARNETT on 10/16/21 0843 Famotidine (Famotidine) 20 Mg Tablet, 20 MG PO BID Prescribed by: JEANNIE CORDOBA on 12/07/21 1226 Metoprolol Succinate (Metoprolol Succinate) 50 Mg Tab.er.24h, 50 MG PO DAILY Prescribed by: MELISSA BARNETT on 10/16/21 0843 Pantoprazole Sodium (Pantoprazole Sodium) 40 Mg Tablet.dr, 40 MG PO DAILY Prescribed by: JEANNIE CORDOBA on 12/07/21 1226 Physical Exam-Cardiology Physical Exam Vital Signs/I&O 12/07/21 12/07/21 12/07/21 12/07/21 04:00 07:00 07:37 07:44 Temp 37.2 36.7 Pulse 65 53 59 Resp 26 14 B/P (MAP) 140/70 (93) 140/70 (93) Pulse Ox 97 97 97 O2 Delivery Room Air Room Air 12/07/21 12/07/21 11:53 12:49 Temp 36.4 Pulse 60 52 Resp 21 B/P (MAP) 111/77 (88) Pulse Ox 95 12/07/21 00:00 Intake Total 0 ml Output Total 0 ml Balance 0 ml Capillary Refill : Less Than 3 Seconds Data Review Labs Laboratory Tests 12/06/21 18:45: White Blood Count 5.3, Red Blood Count 4.53, Hemoglobin 13.0, Hematocrit 40, Radha n Corpuscular Volume 89, Mean Corpuscular Hemoglobin 29, Mean Corpuscular Hemoglobin Concent 32, Red Cell Distribution Width 12.8, Platelet Count 241, Mean Platelet Volume 9.7, Immature Granulocyte % (Auto) 0, Neutrophils (%) (Auto) 61, Lymphocytes (%) (Auto) 29, Monocytes (%) (Auto) 8, Eosinophils (%) (Auto) 2, Basophils (%) (Auto) 0, Neutrophils # (Auto) 3.3, Lymphocytes # (Auto) 1.5, Monocytes # (Auto) 0.4, Eosinophils # (Auto) 0.1, Basophils # (Auto) 0.0, Immature Granulocyte # (Auto) 0.0, D-Dimer 0.28, Sodium Level 140, Potassium Level 4.2, Chloride Level 108H, Carbon Dioxide Level 22, Anion Gap 10, Blood U jo Nitrogen 11, Creatinine 0.80, Estimat Glomerular Filtration Rate 79, BUN/Creatinine Ratio 14, Glucose Level 96, Calcium Level 8.9, Corrected Calcium 9.0, Total Bilirubin 0.4, Aspartate Amino Transf (AST/SGOT) 16, Alanine Aminotransferase (ALT/SGPT) 13, Alkaline Phosphatase 70, Creatine Kinase MB 1.2, Troponin I < 0.028, B-Type Natriuretic Peptide 208.6H, Total Protein 6.9, Albumin 3.9, Lipase 23 12/07/21 04:47: White Blood Count 4.0L, Red Blood Count 4.07, Hemoglobin 11.5, Hematocrit 37, Mean Corpuscular Volume 90, Mean Corpuscular Hemoglobin 28, Mean Corpuscular Hemoglobin Concent 32, Red Cell Distribution Width 12.9, Platelet Count 182, Mean Platelet Volume 10.0, Immature Granulocyte % (Auto) 0, Neutrophils (%) (Auto) 58, Lymphocytes (%) (Auto) 31, Monocytes (%) (Auto) 9, Eosinophils (%) (Auto) 2, Basophils (%) (Auto) 0, Neutrophils # (Auto) 2.3, Lymphocytes # (Auto) 1.2, Monocytes # (Auto) 0.3, Eosinophils # (Auto) 0.1, Basophils # (Auto) 0.0, Immature Granulocyte # (Auto) 0.0, Sodium Level 141, Potassium Level 4.0, Chloride Level 109H, Carbon Dioxide Level 22, Anion Gap 10, Blood Urea Nitrogen 11, Creatinine 0.76, Estimat Glomerular Filtration Rate 84, BUN/Creatinine Ratio 14, Glucose Level 93, Calcium Level 8.9, Corrected Calcium 9.5, Total Bilirubin 0.4, Aspartate Amino Transf (AST/SGOT) 12, Alanine Aminotransferase (ALT/SGPT) 11, Alkaline Phosphatase 60, Troponin I < 0.028, Total Protein 6.3L, Albumin 3.3, Triglycerides Level 87, Cholesterol Level 145, LDL Cholesterol Direct 59, VLDL Cholesterol 17, HDL Cholesterol 62H A/P-Cardiology Assessment/Admission Diagnosis Chest discomfort, etiology undetermined - no evidence of ACS Ac STEMI (anterolateral) on 10-15-21 - self-resolving after treatment with DAPT and iv heparin - emergency card cath on 10/15/21: LMCA OK, LAD prox and mid luminal irregularities, LCX luminal irreg, RCA dominant and free of significant disease, LVEF 60%, LVEDP 28 mmHg - echo on 10/15/21: LVEF 55-60%, apical hypokinesis, grade 2 diggs dyfunction, mild MR, mild to mod enlargement of LA, PASP 40-45 mmHg - chronically abn ECG (T inv in anterolat leads) Hypertension - by history HLD - statin tx H/o HH and GERD. Report h/o HH repair Discussion and Recomendations * Continue previous home regimen * Add Protonix + Pepcid * Increase ambulation * Monitor labs Clinical Quality Measures AMI/AHF: ASA po Prior to arrival: Yes LEEROY FUENTES MD [facility] CCDS Dec 07, 2021 13:35
[2021-12-07 16:00] VITALS: BP 135/71
[2021-12-07 20:00] VITALS: BP 140/70
[2021-12-07] MEDS: FAMOTIDINE 20 MG (PEPCID) TABLET PO SCH (20:29)
[2021-12-07] MEDS: ENOXAPARIN 40 MG/0.4 ML (LOVENOX) SYR SC SCH (20:30)
[2021-12-08] VITALS: BP 120/65
[2021-12-08] MEDS: ACETAMINOPHEN 325 MG TABLET PO SCH ×2 (04:34→11:43)
[2021-12-08 05:36] LABS: BASOPHILS % (AUTO) 1 % (0-10); EOSINOPHILS # (AUTO) 0.1 10^3/uL (0.0-0.3); EOSINOPHILS % (AUTO) 4 % (0-10); HEMATOCRIT 36 % (35-52); HEMOGLOBIN 11.6 g/dL (11.5-16.0); LYMPHOCYTES # (AUTO) 1.3 10^3/uL (1.0-4.0); LYMPHOCYTES % (AUTO) 36 % (12-44); MEAN CORPUSCULAR HEMOGLOBIN 29 pg (25-34); MEAN CORPUSCULAR HGB CONC 32 g/dL (32-36); MEAN CORPUSCULAR VOLUME 89 fL (80-99); MEAN PLATELET VOLUME 9.7 fL (9.0-12.2); MONOCYTES # (AUTO) 0.3 10^3/uL (0.0-1.0); MONOCYTES % (AUTO) 10 % (0-12); NEUTROPHILS # (AUTO) 1.8 10^3/uL (1.8-7.8); NEUTROPHILS % (AUTO) 50 % (42-75); PLATELET COUNT 180 10^3/uL (130-400); WHITE BLOOD COUNT 3.5 10^3/uL (4.3-11.0)
[2021-12-08 05:52] LABS: ALBUMIN 3.2 GM/DL (3.2-4.5); POTASSIUM 3.9 MMOL/L (3.6-5.0)
[2021-12-08 05:54] LABS: CALCIUM 8.4 MG/DL (8.5-10.1)
[2021-12-08 05:55] LABS: TOTAL PROTEIN 5.8 GM/DL (6.4-8.2)
[2021-12-08 05:57] LABS: BILIRUBIN,TOTAL 0.4 MG/DL (0.1-1.0)
[2021-12-08 05:58] LABS: CREATININE SERUM 0.79 MG/DL (0.60-1.30)
[2021-12-08 07:30] VITALS: BP 140/67
[2021-12-08] MEDS: ASPIRIN E.C. 81 MG (ECOTRIN) TAB PO SCH (08:01)
[2021-12-08] MEDS: FAMOTIDINE 20 MG (PEPCID) TABLET PO SCH (08:02)
[2021-12-08] MEDS: DOCUSATE SODIUM 100 MG (COLACE) CAP PO SCH (08:03)
[2021-12-08] MEDS: SENNOSIDES 8.6 MG (SENOKOT) TAB PO SCH (08:04)
[2021-12-08] MEDS ORDERED: PANTOPRAZOLE 40 MG (PROTONIX) TAB PO SCH (09:00)
[2021-12-08 11:45] VITALS: BP 152/80
[2021-12-08 14:09] VITALS: BP 152/80
--- NOTE | 2021-12-08 14:10 | Discharge Summary ---
Discharge Summary Hospital Course Was the Problem List Reviewed?: Yes Problems/Dx: (1) Chest pain Qualifiers: Qualified Codes: R07.9 - Chest pain, unspecified (2) Nausea & vomiting Status: Resolved (3) Atypical chest pain Status: Acute Hospital Course Date of Admission: Dec 06, 2021 at 20:32 Admission Diagnosis : Family Physician/Provider: Moose Oglesby MD Date of Discharge: 12/08/21 Discharge Diagnosis: [ ] Hospital Course: Patient had a short hospital course after she was admitted for observation for c hest pain due to recent MRI. Cardiology was consulted and thought it was more gastrointestinal no chest pain and there was no evidence of acute coronary syndrome so she remained stable and was discharged home on increased GERD treatment. Labs and Pending Lab Test: Laboratory Tests 12/08/21 05:21: White Blood Count 3.5L, Red Blood Count 4.05, Hemoglobin 11.6, Hematocrit 36, Mean Corpuscular Volume 89, Mean Corpuscular Hemoglobin 29, Mean Corpuscular Hemoglobin Concent 32, Red Cell Distribution Width 12.8, Platelet Count 180, Mean Platelet Volume 9.7, Immature Granulocyte % (Auto) 0, Neutrophils (%) (Auto) 50, Lymphocytes (%) (Auto) 36, Monocytes (%) (Auto) 10, Eosinophils (%) (Auto) 4, Basophils (%) (Auto) 1, Neutrophils # (Auto) 1.8, Lymphocytes # (Auto) 1.3, Monocytes # (Auto) 0.3, Eosinophils # (Auto) 0.1, Basophils # (Auto) 0.0, Immature Granulocyte # (Auto) 0.0, Sodium Level 140, Potassium Level 3.9, Chloride Level 108H, Carbon Dioxide Level 24, Anion Gap 8, Blood Urea Nitrogen 12, Creatinine 0.79, Estimat Glomerular Filtration Rate 80, BUN/Creatinine Ratio 15, Glucose Level 94, Calcium Level 8.4L, Corrected Calcium 9.0, Total Bilirubin 0.4, Aspartate Amino Transf (AST/SGOT) 13, Alanine Aminotransferase (ALT/SGPT) 11, Alkaline Phosphatase 58, Total Protein 5.8L, Albumin 3.2 Home Meds Active Famotidine 20 Mg Tablet 20 Mg PO BID Pantoprazole Sodium 40 Mg Tablet.dr 40 Mg PO DAILY Children's Aspirin (Aspirin) 81 Mg Tab.chew 81 Mg PO DAILY Metoprolol Succinate 50 Mg Tab.er.24h 50 Mg PO DAILY Atorvastatin Calcium 80 Mg Tablet 80 Mg PO HS Clopidogrel (Clopidogrel Bisulfate) 75 Mg Tablet 75 Mg PO DAILY Assessment/Pt Instructions PCP in 1 week Discharge Planning: <30 minutes discharge planning Discharge Instructions Discharge Diet: No Restrictions Discharge Physical Examination Vital Signs Vital Signs Date Time Temp Pulse Resp B/P (MAP) Pulse Ox O2 Delivery O2 Flow Rate FiO2 12/08/21 13:00 51 12/08/21 11:45 35.9 22 152/80 (104) 97 Room Air 12/06/21 21:40 21 General Appearance: No Apparent Distress, WD/WN, Chronically ill Allergies: Coded Allergies: No Known Drug Allergies (Unverified , 10/14/21) Discharge Summary Date of Admission Dec 06, 2021 at 20:32 Date of Discharge Discharge Date: Dec 07, 2021 Admission Diagnosis Assessment: Chest pain rule out acute coronary syndrome CAD Hypertension GERD Discharge Diagnosis Supportive care Clinical Quality Measures AMI/AHF: ASA po Prior to arrival: Yes BERNA CORDOBA DO Dec 08, 2021 14:10
--- NOTE | 2021-12-08 15:33 | Progress Note - Cardiology ---
Cardiology SOAP Progress Note Subjective: No cp or palp or syncope or shortness of breath Denies weakness or malaise No n/v/d Wishes to go home Objective: I&O/Vital Signs 12/08/21 12/08/21 12/08/21 12/08/21 04:00 07:00 07:30 08:57 Temp 36.3 Pulse 48 49 71 Resp 17 19 B/P (MAP) 140/67 (91) Pulse Ox 91 97 O2 Delivery Room Air Room Air Room Air 12/08/21 12/08/21 12/08/21 11:45 13:00 14:09 Temp 35.9 35.9 Pulse 60 51 51 Resp 22 22 B/P (MAP) 152/80 (104) 152/80 Pulse Ox 97 97 O2 Delivery Room Air Room Air 12/08/21 00:00 Intake Total 1450 ml Balance 1450 ml Constitutional: AAO x 3, well-developed, well-nourished Respiratory: No accessory muscle use; other (good, bilateral air entry) Cardiovascular: regular rate-rhythm, S1 and S2, systolic murmur (soft ALTAGRACIA at card base) Gastrointestional: No tender; soft; No guarding, No rebound; audible bowel sounds Extremities: No clubbing, No cyanosis, No significant edema Neurologic/Psychiatric: oriented x 3, other (moves all limbs equally) Skin: No rash on exposed areas, No ulcerations on exposed areas Results/Procedures: Labs Laboratory Tests 12/08/21 05:21: White Blood Count 3.5L, Red Blood Count 4.05, Hemoglobin 11.6, Hematocrit 36, Mean Corpuscular Volume 89, Mean Corpuscular Hemoglobin 29, Mean Corpuscular Hemoglobin Concent 32, Red Cell Distribution Width 12.8, Platelet Count 180, Mean Platelet Volume 9.7, Immature Granulocyte % (Auto) 0, Neutrophils (%) (Auto) 50, Lymphocytes (%) (Auto) 36, Monocytes (%) (Auto) 10, Eosinophils (%) (Auto) 4, Basophils (%) (Auto) 1, Neutrophils # (Auto) 1.8, Lymphocytes # (Auto) 1.3, Monocytes # (Auto) 0.3, Eosinophils # (Auto) 0.1, Basophils # (Auto) 0.0, Immature Granulocyte # (Auto) 0.0, Sodium Level 140, Potassium Level 3.9, Chloride Level 108H, Carbon Dioxide Level 24, Anion Gap 8, Blood Urea Nitrogen 12, Creatinine 0.79, Estimat Glomerular Filtration Rate 80, BUN/Creatinine Ratio 15, Glucose Level 94, Calcium Level 8.4L, Corrected Calcium 9.0, Total Bilirubin 0.4, Aspartate Amino Transf (AST/SGOT) 13, Alanine Aminotransferase (ALT/SGPT) 11, Alkaline Phosphatase 58, Total Protein 5.8L, Albumin 3.2 Laboratory Tests 12/06/21 18:45 12/07/21 04:47 12/08/21 05:21 A/P: Assessment: Chest discomfort, etiology undetermined - no evidence of ACS - resolved with treatment for GERD/ACS Ac STEMI (anterolateral) on 10-15-21 - self-resolving after treatment with DAPT and iv heparin - emergency card cath on 10/15/21: LMCA OK, LAD prox and mid luminal irregularities, LCX luminal irreg, RCA dominant and free of significant disease, LVEF 60%, LVEDP 28 mmHg - echo on 10/15/21: LVEF 55-60%, apical hypokinesis, grade 2 diggs dyfunction, mild MR, mild to mod enlargement of LA, PASP 40-45 mmHg - chronically abn ECG (T inv in anterolat leads) Hypertension - by history HLD - statin tx H/o HH and GERD. Report h/o HH repair Plan: * Mild leucopenia being managed by Dr Murray * Continue previous home regimen * Continue Protonix + Pepcid * Outpt f/u advised Clinical Quality Measures AMI/AHF: ASA po Prior to arrival: Yes LEEROY FUENTES MD FACP FAC CCDS Dec 08, 2021 15:33
== END 2021-12-08 13:08 | disposition home or self-care (01) ==
LOC: EDUNIT# 18:32 → ER 18:34 → CSD 20:32 → UNDOADMOB 20:32 → CSD 22:18 → UNDODISOB 12-08 13:08
PROVIDERS: ADMIT Internal Medicine; ATTEND Internal Medicine
DX: R07.9 Chest pain, unspecified (principal); I25.10 Atherosclerotic heart disease of native coronary artery without angina pectoris; I10 Essential (primary) hypertension; K21.9 Gastro-esophageal reflux disease without esophagitis
CPT/HCPCS: 71045; 80053 ×3; 80061; 82553; 83690; 83880; 84484 ×2; 85025 ×3; 85379; 93005 ×3; 96372 ×2; 96375; 99284; G0378; 36415

== ENCOUNTER → 2022-04-22 | Outpatient (CLI) | payer MEDICARE ==
[~2022-04-22] VITALS: Ht 152 cm; Wt 81.0 kg
[~2022-04-22] MED LIST changes: +FAMO20TA5 PO; +REGADENOSON 0.4 MG/5 ML SYR (LEXISCAN) IV ONE
[2022-04-22] MEDS: CATHETER FLUSH 10 ML SYR IVP PRN ×2 (07:14→09:12)
[2022-04-22 09:12] VITALS: BP 159/71
--- NOTE | 2022-04-23 13:34 | STRESS TEST ---
DATE OF SERVICE: 04/22/2022 RESTING AND POST REGADENOSON TECHNETIUM-99M TETROFOSMIN SPECT CT IMAGING Baseline images were carried out after injection of 10.9 mCi of technetium-99m tetrofosmin. This was followed by 0.4 mg regadenoson and 28.3 mCi of technetium-99m tetrofosmin for stress imaging. The electrocardiogram showed sinus rhythm at baseline. There is incomplete right bundle branch block. The electrocardiogram did not change significantly with the regadenoson infusion. The patient noted some tightness in the abdomen and some shortness of breath following regadenoson infusion, which resolved in a few minutes. Review of images at rest and following stress indicates an anteroapical perfusion defect that appears to be predominantly fixed. Gated images show anteroapical akinesis. Left ventricular ejection fraction is calculated to be 72%. CONCLUSIONS: 1. Anteroapical myocardial infarction with a small amount of checo-infarct ischemia. 2. Anteroapical akinesis. 3. Well preserved global left ventricular systolic function with a calculated ejection fraction 72%. Job ID: [id number] DocumentID: [id number] Dictated Date: 04/23/2022 13:12:01 Ekg Tech Date: 04/23/2022 13:31:00 Dictated By: LEEROY FUENTES MD; MICHELLE; FACP; FACC;
== END ==
LOC: CARD 07:30
PROVIDERS: ATTEND Nurse Practitioner Family
DX: I21.09 ST elevation (STEMI) myocardial infarction involving other coronary artery of anterior wall (principal)
CPT/HCPCS: 78452; 93017; 93225; 93226; A9502; C8929; 93306

== ENCOUNTER 2022-07-30 23:03 | Observation (INO) | payer MEDICARE ==
[~2022-07-30] VITALS: Ht 157 cm; Wt 87.1 kg
[~2022-07-30 23:03] MED LIST changes: -REGADENOSON 0.4 MG/5 ML SYR (LEXISCAN) IV ONE
[2022-07-30] MEDS ORDERED: FAMOTIDINE 20 MG (PEPCID) TABLET PO STA (23:12)
[2022-07-30] MEDS ORDERED: ASPIRIN 81 MG CHEW (CHILDREN'S ASA) PO ONE (23:15)
[2022-07-30] MEDS ORDERED: ANTACID SUSP 30 ML UDC (MYLANTA) PO ONE (23:15)
[2022-07-30] MEDS ORDERED: ACETAMINOPHEN 500 MG TAB (TYLENOL) PO ONE (23:15)
[2022-07-30] MEDS ORDERED: NITROGLYCERIN 2% OINT 1 GM UNIT DOSE PACKET TOP ONE (23:15)
--- NOTE | 2022-07-30 23:18 | ED Fever ---
History of Present Illness General Stated Complaint: CHEST PAIN Source: patient, family, old records Exam Limitations: no limitations History of Present Illness Date Seen by Provider: Jul 30, 2022 Time Seen by Provider: 23:04 Initial Comments 72-year-old female with past medical history of CAD and hypertension coming in due to fever, body aches, and chest discomfort that started yesterday. No cough, nausea, vomiting, diarrhea, rash, shortness of breath, abdominal pain, lower extremity swelling or pain, no prior history of DVT or PE, no hemoptysis, no recent surgery. She states this does not feel like when she had her STEMI. On review of the chart, her STEMI was in September 2021, and she did not require any stenting due to likely it dissolving from the heparin as well as dual antiplatelet therapy per the cardiology note. Allergies and Home Medications Allergies Coded Allergies: No Known Drug Allergies (Unverified , 10/14/21) Patient Home Medication List Home Medication List Reviewed: Yes Aspirin (Children's Aspirin) 81 Mg Tab.chew, 81 MG PO DAILY Prescribed by: MELISSA BARNETT on 10/16/21842 Atorvastatin Calcium (Atorvastatin Calcium) 80 Mg Tablet, 80 MG PO HS Prescribed by: MELISSA BARNETT on 10/16/21 08 Clopidogrel Bisulfate (Clopidogrel) 75 Mg Tablet, 75 MG PO DAILY Prescribed by: MELISSA BARNETT on 10/16/21 08 Famotidine (Famotidine) 20 Mg Tablet, 20 MG PO BID Prescribed by: BERNA CORDOBA on 12/07/21 1226 Metoprolol Succinate (Metoprolol Succinate) 50 Mg Tab.er.24h, 50 MG PO DAILY Prescribed by: MELISSA BARNETT on 10/16/21 08 Pantoprazole Sodium (Pantoprazole Sodium) 40 Mg Tablet.dr, 40 MG PO DAILY Prescribed by: BERNA CORDOBA on 12/07/21 1226 Review of Systems Review of Systems Constitutional: fever, malaise Respiratory: No cough Cardiovascular: chest pain Gastrointestinal: no symptoms reported Genitourinary: no symptoms reported Musculoskeletal: no symptoms reported Skin: no symptoms reported Psychiatric/Neurological: No Symptoms Reported Hematologic/Lymphatic: No Symptoms Reported Past Iruzqdm-Louinl-Xuoahi Hx Patient Social History Tobacco Use?: No Past Medical History Surgery/Hospitalization HX: Hysterectomy, cholecystectomy, hiatal hernia, Bilateral total knee replacement, tonsillectomy, D&C x 2, heart cath Coronary Artery Disease, Heart Attack, High Cholesterol, Hypertension Family Medical History No Pertinent Family Hx Physical Exam Vital Signs - First Documented 07/30/22 23:10 Temp 38.3 Pulse 78 Resp 20 B/P (MAP) 173/86 (115) Pulse Ox 94 O2 Delivery Room Air Capillary Refill : Height: '" Weight: lbs. oz. kg; 35.05 BMI Method: General Appearance: WD/WN, no apparent distress Eyes: Bilateral Eye Normal Inspection HEENT: PERRL/EOMI, normal ENT inspection, pharynx normal Neck: non-tender, full range of motion, supple, normal inspection Respiratory: chest non-tender, lungs clear, normal breath sounds, no respiratory distress, no accessory muscle use Cardiovascular: regular rate, rhythm, no edema, no murmur Gastrointestinal: normal bowel sounds, non tender, soft; No distended, No guarding, No rebound Extremities: normal range of motion, non-tender, normal inspection, no pedal edema, no calf tenderness, normal capillary refill Neurologic/Psychiatric: no motor/sensory deficits, alert, normal mood/affect Skin: normal color, warm/dry Focused Exam Lactate Level 07/30/22 23:46: Lactic Acid Level Laboratory Tests Test 07/30/22 23:46 Progress/Results/Core Measures Suspected Sepsis SIRS Temperature: Pulse: Respiratory Rate: Laboratory Tests 07/30/22 23:10: White Blood Count 4.2L Blood Pressure / Mean: 07/30/22 23:46: Laboratory Tests 07/30/22 23:10: Creatinine 0.86, INR Comment 1.0, Platelet Count 136, Total Bilirubin 0.4 Results/Orders Lab Results Laboratory Tests Test 07/30/22 23:10 07/30/22 23:18 07/30/22 23:46 Range/Units White Blood Count 4.2 L 4.3-11.0 10^3/uL Red Blood Count 4.65 3.80-5.11 10^6/uL Hemoglobin 13.3 11.5-16.0 g/dL Hematocrit 40 35-52 % Mean Corpuscular Volume 85 80-99 fL Mean Corpuscular Hemoglobin 29 25-34 pg Mean Corpuscular Hemoglobin Concent 34 32-36 g/dL Red Cell Distribution Width 12.8 10.0-14.5 % Platelet Count 136 130-400 10^3/uL Mean Platelet Volume 9.4 9.0-12.2 fL Immature Granulocyte % (Auto) 1 % Neutrophils (%) (Auto) 87 H 42-75 % Lymphocytes (%) (Auto) 8 L 12-44 % Monocytes (%) (Auto) 4 0-12 % Eosinophils (%) (Auto) 0 0-10 % Basophils (%) (Auto) 1 0-10 % Neutrophils # (Auto) 3.7 1.8-7.8 10^3/uL Lymphocytes # (Auto) 0.3 L 1.0-4.0 10^3/uL Monocytes # (Auto) 0.2 0.0-1.0 10^3/uL Eosinophils # (Auto) 0.0 0.0-0.3 10^3/uL Basophils # (Auto) 0.0 0.0-0.1 10^3/uL Immature Granulocyte # (Auto) 0.0 0.0-0.1 10^3/uL Neutrophils % (Manual) 56 % Lymphocytes % (Manual) 3 % Monocytes % (Manual) 1 % Metamyelocytes % 1 % Myelocytes % 1 % Band Neutrophils 35 % Atypical Lymphocytes 1 % Reactive Lymphocytes 2 % Platelet Estimate NORMAL Blood Morphology Comment NORMAL Prothrombin Time 13.3 12.2-14.7 SEC INR Comment 1.0 0.8-1.4 Activated Partial Thromboplast Time 27 24-35 SEC Sodium Level 136 135-145 MMOL/L Potassium Level 4.1 3.6-5.0 MMOL/L Chloride Level 100 98-107 MMOL/L Carbon Dioxide Level 22 21-32 MMOL/L Anion Gap 14 5-14 MMOL/L Blood Urea Nitrogen 12 7-18 MG/DL Creatinine 0.86 0.60-1.30 MG/DL Estimat Glomerular Filtration Rate 72 BUN/Creatinine Ratio 14 Glucose Level 133 H 70-105 MG/DL Calcium Level 9.1 8.5-10.1 MG/DL Corrected Calcium 9.3 8.5-10.1 MG/DL Magnesium Level 1.8 1.6-2.4 MG/DL Total Bilirubin 0.4 0.1-1.0 MG/DL Aspartate Amino Transf (AST/SGOT) 35 H 5-34 U/L Alanine Aminotransferase (ALT/SGPT) 24 0-55 U/L Alkaline Phosphatase 82 40-136 U/L Troponin I < 0.30 <0.30 NG/ML Pro-B-Type Natriuretic Peptide 1907.0 H <125.0 PG/ML Total Protein 6.8 6.4-8.2 GM/DL Albumin 3.7 3.2-4.5 GM/DL Lipase 13 8-78 U/L SARS-CoV-2 RNA (RT-PCR) Not Detected Not Detecte My Orders Orders - RAQUEL CAT MD Ekg Tracing (07/30/22 23:07) Cbc With Automated Diff (07/30/22 23:08) Magnesium (07/30/22:08) Chest 1 View Ap/Pa Only (07/30/22:08) Ekg Tracing (07/30/22:08) Comprehensive Metabolic Panel (07/30/22:) Protime With Inr (07/30/22:08) Partial Thromboplastin Time (07/30/22:08) O2 (07/30/22:08) Monitor-Rhythm Ecg Trace Only (07/30/22:08) Aspirin Chewable Tablet (Baby Aspirin Ch (07/30/22 23:15) Ed Iv/Invasive Line Start (07/30/22 23:08) Lipase (07/30/22 23:08) Troponin I Fs (07/30/22 23:08) Probnp Fs (07/30/22 23:08) Covid 19 Inhouse Test (07/30/22 23:08) Acetaminophen Tablet (Tylenol Tablet) (07/30/22 23:15) Famotidine Tablet (Pepcid Tablet) (07/30/22 23:12) Antacid Suspension (Mylanta Suspension (07/30/22 23:15) Nitroglycerin Ointment (Nitrobid Ointme (07/30/22 23:15) Doxycycline Hyclate Tablet (Vibramycin T (07/30/22 23:46) Ceftriaxone Iv/Im (Rocephin Iv/Im) (07/31/22 00:00) Manual Differential (07/30/22 23:10) Furosemide Injection (Lasix Injection) (07/31/22 00:15) Lactic Acid Analyzer (07/31/22 00:20) Medications Given in ED Current Medications Medications Dose Ordered Sig/Hollie Route Start Time Stop Time Status Last Admin Dose Admin Acetaminophen 1,000 mg ONCE ONCE PO 07/30/22 23:15 07/30/22 23:16 DC 07/30/22 23:19 1,000 MG Al Hydrox/Mg Hydrox/Simethicone 30 ml ONCE ONCE PO 07/30/22 23:15 07/30/22 23:16 DC 07/30/22 23:17 30 ML Aspirin 243 mg ONCE ONCE PO 07/30/22 23:15 07/30/22 23:16 DC 07/30/22 23:18 243 MG Ceftriaxone Sodium 1000 mg/ Sodium Chloride 50 ml @ 100 mls/hr ONCE ONCE IV 07/31/22 00:00 07/31/22 00:29 07/30/22 23:55 100 MLS/HR Nitroglycerin 1 inch ONCE ONCE TOP 07/30/22 23:15 07/30/22 23:16 DC 07/30/22 23:21 1 INCH Vital Signs/I&O 07/30/22 07/30/22 23:10 23:47 Temp 38.3 38.0 Pulse 78 Resp 20 B/P (MAP) 173/86 (115) Pulse Ox 94 O2 Delivery Room Air Capillary Refill : Progress Note : Progress Note 73-year-old female with above history coming in due to fever and chest pain. ABCs were intact and vitals are stable on presentation although she was hypertensive on arrival. EKG ordered and interpreted by me showing no acute ischemic changes. Chest x-ray ordered and interpreted by me showing mild cardiomegaly, mild central vascular congestion, and likely perihilar haziness/opacities which could be early infection. Patient is febrile here, so she was given Tylenol, ceftriaxone, doxycycline for likely early infection. I was concerned that she could be slightly volume overloaded, and her BNP is elevated here as well. She [place] 20 mg of IV Lasix. I reviewed her echo report from last year and she did have heart failure with preserved ejection fraction which was mild. Troponin is negative, white blood cell count low, normal creatinine. Patient was placed on 2 L nasal cannula because her oxygen did trend down to 89% consistently which is new for her. At this point, I have contacted Dr. Cordoba, who admit the patient to the intensive care unit for concern for clinical course. She will be admitted for observation for now, may change later. She will need a Dr. Harman consult in the morning which I have placed the order. I then contacted the ICU physician for signout. ECG Initial ECG Impression Date: Jul 31, 2022 Initial ECG Impression Time: 23:10 Initial ECG Rate: 79 Initial ECG Rhythm: Normal Sinus Comment Narrow QRS with an incomplete right bundle branch block, no STEMI, no significant ST or T wave abnormalities, compared to prior EKG, the T wave inversions have improved Diagnostic Imaging Diagonstic Imaging: Xray (chest) Comments Mild cardiomegaly, central vascular congestion, haziness in the perihilar region Departure Impression Primary Impression: Respiratory failure Qualified Codes: J96.01 - Acute respiratory failure with hypoxia Additional Impressions: Volume overload Qualified Codes: E87.79 - Other fluid overload Fever Qualified Codes: R50.81 - Fever presenting with conditions classified elsewhere Disposition: 30 STILL A PATIENT Condition: Stable Admissions Decision to Admit Reason: Admit from ER (General) Decision to Admit/Date: Jul 31, 2022 Time/Decision to Admit Time: 00:15 Transfer Method of Transfer: EMS Departure-Patient Inst. Referrals: HIEU ESCALERA MD (PCP/Family) Primary Care Physician RAQUEL CAT MD Jul 30, 2022 23:18
[2022-07-30 23:35] LABS: BASOPHILS % (AUTO) 1 % (0-10); EOSINOPHILS % (AUTO) 0 % (0-10); HEMATOCRIT 40 % (35-52); HEMOGLOBIN 13.3 g/dL (11.5-16.0); LYMPHOCYTES # (AUTO) 0.3 10^3/uL (1.0-4.0); LYMPHOCYTES % (AUTO) 8 % (12-44); MEAN CORPUSCULAR HEMOGLOBIN 29 pg (25-34); MEAN CORPUSCULAR HGB CONC 34 g/dL (32-36); MEAN CORPUSCULAR VOLUME 85 fL (80-99); MEAN PLATELET VOLUME 9.4 fL (9.0-12.2); MONOCYTES # (AUTO) 0.2 10^3/uL (0.0-1.0); MONOCYTES % (AUTO) 4 % (0-12); NEUTROPHILS # (AUTO) 3.7 10^3/uL (1.8-7.8); NEUTROPHILS % (AUTO) 87 % (42-75); PLATELET COUNT 136 10^3/uL (130-400); WHITE BLOOD COUNT 4.2 10^3/uL (4.3-11.0)
[2022-07-30] MEDS ORDERED: DOXYCYCLINE 100 MG (VIBRAMYCIN) TABLET PO STA (23:46)
[2022-07-31] LABS: SODIUM 136 MMOL/L (135-145)
[2022-07-31] MEDS ORDERED: cefTRIAXone IV/IM 1,000 MG in NS (IVPB) 50 ML IV ONE ×2
[2022-07-31 00:01] LABS: ALANINE AMINOTRANSFERASE 24 U/L (0-55); ALKALINE PHOSPHATASE 82 U/L (40-136); BILIRUBIN,TOTAL 0.4 MG/DL (0.1-1.0); BUN/CREATININE RATIO 14; CALCIUM 9.1 MG/DL (8.5-10.1); CARBON DIOXIDE 22 MMOL/L (21-32); CHLORIDE 100 MMOL/L (98-107); CREATININE SERUM 0.86 MG/DL (0.60-1.30); GFR ESTIMATED 72; GLUCOSE 133 MG/DL (70-105); MAGNESIUM 1.8 MG/DL (1.6-2.4); POTASSIUM 4.1 MMOL/L (3.6-5.0); TOTAL PROTEIN 6.8 GM/DL (6.4-8.2)
[2022-07-31 00:02] LABS: ALBUMIN 3.7 GM/DL (3.2-4.5); LIPASE 13 U/L (8-78)
[2022-07-31 00:03] LABS: PROTHROMBIN TIME PATIENT 13.3 SEC (12.2-14.7)
[2022-07-31] MEDS ORDERED: FUROSEMIDE 40 MG/4 ML INJ (LASIX) IVP ONE (00:15)
[2022-07-31 00:20] LABS: ATYPICAL LYMPHOCYTES 1 %; BAND NEUTROPHILS 35 %; LYMPHOCYTES % (MANUAL) 3 %; METAMYELOCYTES % 1 %; MONOCYTES % (MANUAL) 1 %; MYELOCYTES % 1 %; NEUTROPHILS % (MANUAL) 56 %; REACTIVE LYMPHOCYTES 2 %
[2022-07-31 00:21] LABS: PLATELET ESTIMATE NORMAL; RBC MORPH NORMAL
[2022-07-31] MEDS ORDERED: ACETAMINOPHEN 500 MG TAB (TYLENOL) PO PRN ×2 (02:30→10:30)
[2022-07-31] MEDS ORDERED: NS IV 500 ML 500 ML IV PRN (02:30)
[2022-07-31] MEDS ORDERED: ONDANSETRON 4 MG/2 ML (SDV) Z0FRAN IV PRN (02:30)
[2022-07-31 04:16] LABS: BASOPHILS % (AUTO) 0 % (0-10); EOSINOPHILS % (AUTO) 0 % (0-10); HEMATOCRIT 39 % (35-52); LYMPHOCYTES # (AUTO) 0.3 10^3/uL (1.0-4.0); LYMPHOCYTES % (AUTO) 9 % (12-44); MEAN CORPUSCULAR HEMOGLOBIN 29 pg (25-34); MEAN CORPUSCULAR HGB CONC 34 g/dL (32-36); MEAN CORPUSCULAR VOLUME 86 fL (80-99); MEAN PLATELET VOLUME 9.6 fL (9.0-12.2); MONOCYTES # (AUTO) 0.1 10^3/uL (0.0-1.0); MONOCYTES % (AUTO) 4 % (0-12); NEUTROPHILS # (AUTO) 2.6 10^3/uL (1.8-7.8); NEUTROPHILS % (AUTO) 85 % (42-75); PLATELET COUNT 140 10^3/uL (130-400); WHITE BLOOD COUNT 3.1 10^3/uL (4.3-11.0)
[2022-07-31 04:28] LABS: ALBUMIN 3.6 GM/DL (3.2-4.5); POTASSIUM 3.8 MMOL/L (3.6-5.0)
[2022-07-31 04:29] LABS: CALCIUM 8.8 MG/DL (8.5-10.1)
[2022-07-31 04:31] LABS: TOTAL PROTEIN 6.4 GM/DL (6.4-8.2)
[2022-07-31 04:32] LABS: BILIRUBIN,TOTAL 0.4 MG/DL (0.1-1.0)
[2022-07-31 04:34] LABS: CREATININE SERUM 0.87 MG/DL (0.60-1.30); PHOSPHORUS 4.4 MG/DL (2.3-4.7)
[2022-07-31 04:37] LABS: MAGNESIUM 1.8 MG/DL (1.6-2.4)
[2022-07-31 05:57] LABS: BILIRUBIN,URINE NEGATIVE (NEGATIVE); CLARITY,URINE SL CLOUDY; COLOR,URINE YELLOW; GLUCOSE, URINE (UA) NEGATIVE (NEGATIVE); KETONES,URINE NEGATIVE (NEGATIVE); LEUKOCYTE ESTERASE ,URINE NEGATIVE (NEGATIVE); NITRITE,URINE NEGATIVE (NEGATIVE); PH,URINE 5.5 (5-9); PROTEIN,URINE NEGATIVE (NEGATIVE)
[2022-07-31] MEDS ORDERED: MAGNESIUM 1 GM/100 ML IVPB 100 ML IV SCH (06:00)
[2022-07-31] MEDS ORDERED: POTASSIUM CL 10MEQ/50ML IVPB 50 ML IV SCH (06:00)
[2022-07-31] MEDS ORDERED: KCL 20 MEQ TAB (K-DUR) PO SCH (06:00)
[2022-07-31 06:05] LABS: BACTERIA,URINE NEGATIVE /HPF; HYALINE CASTS, URINE 0-2 /LPF; RBC,URINE RARE /HPF; WBC,URINE RARE /HPF
[2022-07-31] MEDS: MAGNESIUM 1 GM/100 ML IVPB 100 ML IV SCH ×2 (07:35→08:55)
[2022-07-31] MEDS: CATHETER FLUSH 10 ML SYR IVP SCH ×3 (07:35→22:02)
[2022-07-31] MEDS ORDERED: KCL 20 MEQ TAB (K-DUR) PO ONE (08:00)
--- NOTE | 2022-07-31 08:02 | History & Physical-Hospitalist ---
History of Present Illness HPI/Chief Complaint Chief complaint: Dyspnea due to pulmonary edema HPI: This is a 72-year-old female clinic patient of [facility] who presents to the ICU from [place] due to chest pain and shortness of breath. she was found to have pulmonary edema and fluid overload with early pneumonia so she was placed in the ICU and cardiology was consulted. Troponin was negative but BNP was elevated. Diastolic dysfunction was assessed by cardiology and recommended continued diuresis. IV antibiotics maintained. Source: patient Exam Limitations: no limitations Date Seen 07/31/22 Time Seen by a Provider: 11:00 Attending Physician Moose Oglesby MD PCP Admitting Physician: Jeannie Murray DO Attending Physician: Jeannie Murray DO Referring Physician Date of Admission Jul 31, 2022 at 01:48 Home Medications & Allergies Home Medications Reviewed patient Home Medication Reconciliation performed by pharmacy medication reconciliations ict support technicians and/or nursing. Patients Allergies have been reviewed. Allergies Allergies Coded Allergies Penicillins (Verified Allergy, Unknown, 07/31/22) PATIENT DOES NOT REMEMBER REACTION. SHE HAD THIS REACTION WHEN SHE WAS A CHILD. Past Atudxsl-Xnciqo-Moeplz Hx Patient Social History Marrital Status: Employed/Student: retired Tobacco Use?: No Smoking Status: Never a Smoker Use of E-Cig and/or Vaping dev: No Substance use?: No Alcohol Use?: No Pt feels they are or have been: No Immunizations Up To Date First/Initial COVID19 Vaccinat: unk Tetanus Booster (TDap): More Than 5 Years Hepatitis A: No Hepatitis B: No Current Status status: No status: No Communicates: Verbally Primary Language: Yi Preferred Spoken Language: Yi Is interpretation needed?: No Past Medical History Coronary Artery Disease, Heart Attack, High Cholesterol, Hypertension N/A Family Medical History No Pertinent Family Hx Review of Systems Constitutional: see HPI EENTM: no symptoms reported Respiratory: dyspnea on exertion Cardiovascular: chest pain Gastrointestinal: no symptoms reported Genitourinary: no symptoms reported Musculoskeletal: no symptoms reported Skin: no symptoms reported Psychiatric/Neurological: No Symptoms Reported All Other Systems Reviewed Negative Unless Noted: Yes Physical Exam Physical Exam Vital Signs Vital Signs - First Documented 07/30/22 07/30/22 23:10 23:46 Temp 38.3 Pulse 78 Resp 20 B/P (MAP) 173/86 (115) Pulse Ox 94 O2 Delivery Room Air O2 Flow Rate 2.00 Capillary Refill : Less Than 3 Seconds Height, Weight, BMI Height: '" Weight: lbs. oz. kg; 33.63 BMI Method: General Appearance: No Apparent Distress, Chronically ill Eyes: Right Eye Normal Inspection, Right Eye PERRL HEENT: PERRL/EOMI, Normal ENT Inspection, Pharynx Normal, Moist Mucous Membranes Neck: Full Range of Motion, Normal Inspection, Non Tender Respiratory: Chest Non Tender, Normal Breath Sounds, No Accessory Muscle Use, No Respiratory Distress, Decreased Breath Sounds Cardiovascular: Regular Rate, Rhythm, No Edema, No Gallop, No JVD, No Murmur, Normal Peripheral Pulses Gastrointestinal: Normal Bowel Sounds, No Organomegaly, No Pulsatile Mass, Non Tender, Soft Back: Normal Inspection, No CVA Tenderness, No Vertebral Tenderness Extremity: Normal Capillary Refill, Normal Inspection, Normal Range of Motion, Non Tender, No Calf Tenderness, No Pedal Edema Neurologic/Psychiatric: Alert, Oriented x3, No Motor/Sensory Deficits, Normal Mood/Affect, sleeve separator II-XII Norm as Tested Skin: Normal Color, Warm/Dry Lymphatic: No Adenopathy Results Results/Procedures Labs Laboratory Tests 07/30/22 23:10 07/31/22 04:08 Patient resulted labs reviewed. Assessment/Plan Admission Diagnosis Assessment: Acute pulmonary edema Volume overload CAD Hypertension Hyperlipidemia GERD Plan: Supportive care Cardiology appreciated Moved to fourth floor Admission Status: Observation JEANNIE MURRAY DO Jul 31, 2022 08:02
--- NOTE | 2022-07-31 08:18 | Diagnostic Imaging Report ---
EXAMINATION: Chest 1 view HISTORY: fever, chest pain COMPARISON: 12/06/2021 FINDINGS: Heart size and pulmonary vasculature are normal. The lungs are clear without consolidation, pleural effusion, or pneumothorax. The osseous structures are intact. IMPRESSION: 1. No acute radiographic abnormality in the chest. Dictated by: Dictated on workstation # [id number]
--- NOTE | 2022-07-31 08:34 | Consultation-Cardiology ---
HPI-Cardiology Cardiology Consultation Date of Consultation 07/31/22 Date of Admission Time Seen by Provider: 08:30 Indication: Chest pain HPI 72-year-old lady with history of coronary artery disease, hypertension, had fever and chills and some chest pain. Came into the emergency room was concerned that it was similar to the pain that she had during her myocardial infarction in September 2021. She was noted to have pneumonia. On my evaluation she was laying down in bed, feeling better. Denied any active chest pain. Home Medications & Allergies Allergies: Coded Allergies: Penicillins (Verified Allergy, Unknown, 07/31/22) PATIENT DOES NOT REMEMBER REACTION. SHE HAD THIS REACTION WHEN SHE WAS A CHILD. Home Medication List Reviewed: Yes MOA-Fsdodm-Kowvnf Hx Patient Social History Marital Status: Employed/Student: retired Alcohol Use?: No Past Medical History Discussed below Family Medical History Significant Family History: No Pertinent Family Hx Review of Systems-General Review of Systems Constitutional: fever, malaise EENTM: see HPI, no symptoms reported Respiratory: see HPI, cough Cardiovascular: see HPI, chest pain; No edema, No Hx of Intervention, No palpitations, No syncope, No vascular heart diseas, No other Gastrointestinal: no symptoms reported Genitourinary: no symptoms reported Musculoskeletal: no symptoms reported Skin: no symptoms reported Psychiatric/Neurological: No Symptoms Reported Reviewed Test Results Reviewed Test Results Lab Laboratory Tests Test 07/30/22 23:10 07/30/22 23:18 07/30/22 23:46 07/31/22 04:08 Range/Units White Blood Count 4.2 L 3.1 L 4.3-11.0 10^3/uL Red Blood Count 4.65 4.50 3.80-5.11 10^6/uL Hemoglobin 13.3 13.0 11.5-16.0 g/dL Hematocrit 40 39 35-52 % Mean Corpuscular Volume 85 86 80-99 fL Mean Corpuscular Hemoglobin 29 29 25-34 pg Mean Corpuscular Hemoglobin Concent 34 34 32-36 g/dL Red Cell Distribution Width 12.8 12.8 10.0-14.5 % Platelet Count 136 140 130-400 10^3/uL Mean Platelet Volume 9.4 9.6 9.0-12.2 fL Immature Granulocyte % (Auto) 1 1 % Neutrophils (%) (Auto) 87 H 85 H 42-75 % Lymphocytes (%) (Auto) 8 L 9 L 12-44 % Monocytes (%) (Auto) 4 4 0-12 % Eosinophils (%) (Auto) 0 0 0-10 % Basophils (%) (Auto) 1 0 0-10 % Neutrophils # (Auto) 3.7 2.6 1.8-7.8 10^3/uL Lymphocytes # (Auto) 0.3 L 0.3 L 1.0-4.0 10^3/uL Monocytes # (Auto) 0.2 0.1 0.0-1.0 10^3/uL Eosinophils # (Auto) 0.0 0.0 0.0-0.3 10^3/uL Basophils # (Auto) 0.0 0.0 0.0-0.1 10^3/uL Immature Granulocyte # (Auto) 0.0 0.0 0.0-0.1 10^3/uL Neutrophils % (Manual) 56 % Lymphocytes % (Manual) 3 % Monocytes % (Manual) 1 % Metamyelocytes % 1 % Myelocytes % 1 % Band Neutrophils 35 % Atypical Lymphocytes 1 % Reactive Lymphocytes 2 % Platelet Estimate NORMAL Blood Morphology Comment NORMAL Prothrombin Time 13.3 12.2-14.7 SEC INR Comment 1.0 0.8-1.4 Activated Partial Thromboplast Time 27 24-35 SEC Sodium Level 136 136 135-145 MMOL/L Potassium Level 4.1 3.8 3.6-5.0 MMOL/L Chloride Level 100 102 98-107 MMOL/L Carbon Dioxide Level 22 23 21-32 MMOL/L Anion Gap 14 11 5-14 MMOL/L Blood Urea Nitrogen 12 13 7-18 MG/DL Creatinine 0.86 0.87 0.60-1.30 MG/DL Estimat Glomerular Filtration Rate 72 71 BUN/Creatinine Ratio 14 15 Glucose Level 133 H 106 H 70-105 MG/DL Calcium Level 9.1 8.8 8.5-10.1 MG/DL Corrected Calcium 9.3 9.1 8.5-10.1 MG/DL Magnesium Level 1.8 1.8 1.6-2.4 MG/DL Total Bilirubin 0.4 0.4 0.1-1.0 MG/DL Aspartate Amino Transf (AST/SGOT) 35 H 40 H 5-34 U/L Alanine Aminotransferase (ALT/SGPT) 24 31 0-55 U/L Alkaline Phosphatase 82 70 40-136 U/L Troponin I < 0.30 <0.30 NG/ML Pro-B-Type Natriuretic Peptide 1907.0 H <125.0 PG/ML Total Protein 6.8 6.4 6.4-8.2 GM/DL Albumin 3.7 3.6 3.2-4.5 GM/DL Lipase 13 8-78 U/L SARS-CoV-2 RNA (RT-PCR) Not Detected Not Detecte Lactic Acid Level 0.84 0.81 0.50-2.00 MMOL/L Phosphorus Level 4.4 2.3-4.7 MG/DL Test 07/31/22 05:30 Range/Units Urine Color YELLOW Urine Clarity SL CLOUDY Urine pH 5.5 5-9 Urine Specific [place] 1.010 L 1.016-1.022 Urine Protein NEGATIVE NEGATIVE Urine Glucose (UA) NEGATIVE NEGATIVE Urine Ketones NEGATIVE NEGATIVE Urine Nitrite NEGATIVE NEGATIVE Urine Bilirubin NEGATIVE NEGATIVE Urine Urobilinogen 0.2 < = 1.0 MG/DL Urine Leukocyte Esterase NEGATIVE NEGATIVE Urine RBC (Auto) NEGATIVE NEGATIVE Urine RBC RARE /HPF Urine WBC RARE /HPF Urine Squamous Epithelial Cells 5-10 /HPF Urine Crystals NONE /LPF Urine Bacteria NEGATIVE /HPF Urine Casts PRESENT /LPF Urine Hyaline Casts 0-2 H /LPF Urine Mucus NEGATIVE /LPF Urine Culture Indicated NO Physical Exam Physical Exam Vital Signs Vital Signs - First Documented 07/30/22 07/30/22 23:10 23:46 Temp 38.3 Pulse 78 Resp 20 B/P (MAP) 173/86 (115) Pulse Ox 94 O2 Delivery Room Air O2 Flow Rate 2.00 Capillary Refill : Less Than 3 Seconds Height, Weight, BMI Height: '" Weight: lbs. oz. kg; 33.63 BMI Method: General Appearance: No Apparent Distress, WD/WN Eyes: Bilateral Eye Normal Inspection HEENT: PERRL/EOMI, TMs Normal, Normal ENT Inspection, Pharynx Normal, Moist Mucous Membranes Neck: Full Range of Motion, Normal Inspection, Non Tender, Supple, Carotid Bruit Respiratory: Chest Non Tender, Normal Breath Sounds, No Accessory Muscle Use, No Respiratory Distress Cardiovascular: Regular Rate, Rhythm, No Edema, No Gallop, No JVD, No Murmur, Normal Peripheral Pulses Gastrointestinal: Normal Bowel Sounds, No Organomegaly, No Pulsatile Mass, Non Tender, Soft Back: Normal Inspection, No CVA Tenderness, No Vertebral Tenderness Extremity: Normal Capillary Refill, Normal Inspection, Normal Range of Motion, Non Tender, No Calf Tenderness, No Pedal Edema Neurologic/Psychiatric: Alert, Oriented x3, No Motor/Sensory Deficits, Normal Mood/Affect Skin: Normal Color, Warm/Dry Lymphatic: No Adenopathy A/P-Cardiology Admission Diagnosis Fever Chest pain Coronary artery disease Hypertension Assessment/Plan Fever, malaise. Questionable pneumonia Initial chest x-ray did not show any acute abnormality. Patient is feeling better, managed by medical team Chest pain, nonspecific etiology, cardiac enzymes are normal EKG did not show any acute abnormality. Continue to monitor Coronary artery disease Had acute myocardial infarction September 2021, emergency cardiac catheterization showed patent coronary system, the assumption was self resolving thrombus after the treatment with heparin and dual antiplatelet therapy. Stress test done in April [address] Murillo showing anterior apical myocardial infarct with small amount of checo-infarct ischemia, ejection fraction 72%. Hypertension, restart home medication monitor blood pressure Hyperlipidemia, monitor lipids History of palpitation Holter monitor done in April 2022 showing sinus rhythm with isolated PVCs and 1 couplet. Occasional APCs. Short PAT. Anxiety. SRAVAN DELANEY MD Jul 31, 2022 08:34
[2022-07-31] MEDS: ENOXAPARIN 40 MG/0.4 ML (LOVENOX) SYR SC SCH (08:55)
[2022-07-31] MEDS ORDERED: CLOPIDOGREL 75 MG (PLAVIX) TABLET PO SCH (09:00)
[2022-07-31] MEDS ORDERED: PANTOPRAZOLE 40 MG (PROTONIX) TAB PO SCH (09:00)
[2022-07-31] MEDS ORDERED: ASPIRIN E.C. 81 MG (ECOTRIN) TAB PO SCH (09:00)
[2022-07-31] MEDS ORDERED: OXYB5TAB13 PO (09:50)
[2022-07-31] MEDS ORDERED: PANT40TA52 PO (09:50)
[2022-07-31] MEDS ORDERED: METO50TA7 PO (09:50)
[2022-07-31] MEDS ORDERED: ATOR80TA76 PO (09:50)
[2022-07-31] MEDS ORDERED: CLOP75TA28 PO (09:50)
[2022-07-31] MEDS ORDERED: ACET-2267 PO (09:50)
[2022-07-31] MEDS ORDERED: ASPI-999 PO (09:50)
[2022-07-31] MEDS ORDERED: ALPRAZolam 0.25 MG (XANAX) TAB PO PRN (10:30)
[2022-07-31] MEDS ORDERED: ACETAMINOPHEN 325 MG TABLET PO PRN (10:30)
[2022-07-31] MEDS ORDERED: MELATONIN 3 MG TABLET PO PRN (10:30)
[2022-07-31] MEDS ORDERED: CALCIUM CARBONATE 500 MG (TUMS) TAB.CHEW PO PRN (10:30)
[2022-07-31] MEDS ORDERED: diphenhydrAMINE 25 MG TAB (BENADRYL) PO PRN (10:30)
[2022-07-31] MEDS ORDERED: DOCUSATE SODIUM 100 MG (COLACE) CAP PO PRN (10:30)
[2022-07-31] MEDS ORDERED: LACTULOSE SYRUP 10GM/15ML (ENULOSE) 30ML UDC PO PRN (10:30)
--- NOTE | 2022-07-31 11:01 | Tele-ICU Consult ---
History of Present Illness History of Present Illness Date Seen by Provider: Jul 31, 2022 Time Seen by Provider: 11:01 Reason for Visit: Chest pain History of Present Illness (Tele-ICU Physician , consultation as per request of PCP Service provided via interactive audio and video telecommunPeerflix E-CARE system to a patient admitted to ICU bed in [facility], [place]. Available chart/ vitals / labs / Images reviewed H&P is from ER notes Patient's information available about PMH, Shx, Fhx allergy reviewed inEMR. ROS as per chart and RN report Now in ICU, hemodynamically stable Video assessment done using teleICU camera, rest of exam as per RN Discussed with RN. Hospital course: A/P Fever, malaise. Suspected PNA vs LRTI on abx for pneumonia Hy[poxia - mild - to wean , tx LRTI Chest pain, h/o CAD - resolved - as per cards Lines : perf , (Central Line Necessity Reviewed) Hicks: OG: Nutrition: po Analgesia: Anxiety/ delirium VTE Prophylaxis: angela Stress Ulcer Prophylaxis: na Plans in collaboration with bedside consultants and IM MDs. Discussed with RN to reach out if any questions or concerns A total of 10 minutes of critical care time was devoted to this patient today, required to treat and/or prevent further deterioration of critical care condition ( as above ) . I am remotely monitoring this patient from another [place]. I am unable to do the bedside exam, and history/physical and pertinent information is taken from other notes in the computer and bedside staff. . Allergies and Home Medications Allergies Coded Allergies: Penicillins (Verified Allergy, Unknown, 07/31/22) PATIENT DOES NOT REMEMBER REACTION. SHE HAD THIS REACTION WHEN SHE WAS A CHILD. Home Medications Acetaminophen 500 Mg Tablet, 1,000 MG PO Q6H PRN for PAIN-MILD (1-4), (Reported) Aspirin 81 Mg Tab.chew, 81 MG PO DAILY, (Reported) Atorvastatin Calcium 80 Mg Tablet, 80 MG PO HS, (Reported) Clopidogrel Bisulfate 75 Mg Tablet, 75 MG PO DAILY, (Reported) Metoprolol Succinate 50 Mg Tab.er.24h, 50 MG PO DAILY, (Reported) Oxybutynin Chloride 5 Mg Tablet, 5 MG PO DAILY, (Reported) Pantoprazole Sodium 40 Mg Tablet.dr, 40 MG PO DAILY, (Reported) Past Medical/Social/Family Hx Patient Social History Marrital Status: Employed/Student: retired Tobacco Use?: No Use of E-Cig and/or Vaping dev: No Substance use?: No Alcohol Use?: No Pt stated abuse/neglect: No Immunizations Up To Date First/Initial COVID19 Vaccinat: unk Tetanus Booster (TDap): More Than 5 Years Hepatitis A: No Hepatitis B: No TB Skin Test: None Current Status status: No status: No Communicates: Verbally Primary Language: Tongan Preferred Spoken Language: Tongan Is interpretation needed?: No Past Medical History N/A Review of Systems Constitutional: other Focused Exam Possible Source: Other Lactate Level 07/30/22 23:46: Lactic Acid Level 0.84 07/31/22 04:08: Lactic Acid Level 0.81 Height, Weight, BMI Height: '" Weight: lbs. oz. kg; 33.63 BMI Method: Exam Exam Patient acknowledged, consented, and participated in this virtual visit which was conducted using real time audio/video Vital Signs Date Time Temp Pulse Resp B/P (MAP) Pulse Ox O2 Delivery O2 Flow Rate FiO2 07/31/22 10:00 70 16 123/54 (77) 95 Nasal Cannula 2.00 07/31/22 09:00 69 23 102/51 (68) 92 Nasal Cannula 2.00 07/31/22 08:00 67 18 130/63 (85) 94 Nasal Cannula 2.00 07/31/22 08:00 96 Nasal Cannula 2.00 07/31/22 07:19 36.4 07/31/22 07:00 59 07/31/22 07:00 68 21 105/55 (72) 91 Nasal Cannula 2.00 07/31/22 06:42 Nasal Cannula 2.00 07/31/22 06:00 56 26 103/53 (70) 98 Nasal Cannula 2.00 07/31/22 05:00 61 20 100/56 (71) 93 Nasal Cannula 2.00 07/31/22 04:00 61 12 91/55 (67) 95 Nasal Cannula 2.00 07/31/22 04:00 95 Nasal Cannula 2.00 07/31/22 03:03 63 12 112/63 (79) 95 Nasal Cannula 2.00 07/31/22 02:15 95 Nasal Cannula 2.00 07/31/22 02:12 36.2 73 22 124/70 (88) 93 Nasal Cannula 2.00 07/31/22 02:11 69 07/31/22 01:05 74 29 123/51 96 Nasal Cannula 2.00 07/30/22 23:47 38.0 07/30/22 23:46 96 Nasal Cannula 2.00 07/30/22 23:10 38.3 78 20 173/86 (115) 94 Room Air I & O 07/31/22 06:59 Intake Total 0 ml Output Total 400 ml Balance -400 ml Height & Weight Height: '" Weight: lbs. oz. kg; 33.63 BMI Method: General Appearance: No Apparent Distress, WD/WN, Other HEENT: PERRL/EOMI, TMs Normal, Normal ENT Inspection, Pharynx Normal, Moist Mucous Membranes Neck: Full Range of Motion, Normal Inspection, Non Tender, Supple, Carotid Bruit Respiratory: Chest Non Tender, Normal Breath Sounds, No Accessory Muscle Use, No Respiratory Distress Cardiovascular: Regular Rate, Rhythm, No Edema, No Gallop, No JVD, No Murmur, Normal Peripheral Pulses Capillary Refill: Less Than 3 Seconds Gastrointestinal: normal bowel sounds, non tender, soft; No distended, No guarding, No rebound Extremity: Normal Capillary Refill, Normal Inspection, Normal Range of Motion, Non Tender, No Calf Tenderness, No Pedal Edema Neurologic/Psychiatric: Alert, Oriented x3, No Motor/Sensory Deficits, Normal Mood/Affect Skin: Normal Color, Warm/Dry Lymphatic: No Adenopathy Results Lab Laboratory Tests 07/30/22 23:10 07/31/22 04:08 Assessment/Plan Assessment/Plan 1 MARGARITA VIRAMONTES MD Jul 31, 2022 11:01
[2022-07-31] MEDS: DOXYCYCLINE 100 MG (VIBRAMYCIN) TABLET PO SCH ×2 (12:13→22:52)
[2022-07-31 13:45] VITALS: BP 130/74
--- NOTE | 2022-07-31 14:17 | Physical Therapy Evaluation ---
PT Evaluation-General Medical Diagnosis Admission Date Jul 31, 2022 at 01:48 Medical Diagnosis: pneumonia Onset Date: Jul 31, 2022 Therapy Diagnosis Therapy Diagnosis: debility Precautions Precautions/Isolations: Fall Prevention, Standard Precautions Referral Physician: Terri Reason for Referral: Evaluation/Treatment Medical History Pertinent Medical History: CAD, HTN Current History ER secondary to fever, body aches Reviewed History: Yes Social History Home: Single Level Current Living Status: Spouse Entry Into Home: Stairs Without Railing PT Steps Into Home: 1 Prior Prior Level of Function SCALE: Activities may be completed with or without assistive devices. 0-Hgpfqndemu-pgkzlej completes the activity by him/herself with no assistance from a helper. 5-Set-up or Clean-up Assistance-helper sets up or cleans up; patient completes activity. Webster assists only prior to or following the activity. 4-Supervision or Touching Assistance-helper provides verbal cues and/or touching/steadying and/or contact guard assistance as patient completes activity. Assistance may be provided throughout the activity or intermittently. 3-Partial/Moderate Assistance-helper does LESS THAN HALF the effort. Webster lifts, holds or supports trunk or limbs, but provides less than half the effort. 2-Substantial/Maximal Assistance-helper does MORE THAN HALF the effort. Webster lifts or holds trunk or limbs and provides more than half the effort. 9-Olsgyqtkw-drblpt does ALL the effort. Patient does none of the effort to complete the activity. Or, the assistance of 2 or more helpers is required for the patient to complete the activity. If activity was not attempted, code reason: 7-Patient Refused. 9-Not Applicable-not attempted and the patient did not perform the activity before the current illness, exacerbation or injury. 10-Not Attempted due to Environmental Limitations-(lack of equipment, weather restraints, etc.). 88-Not Attempted due to Medical Conditions or Safety Concerns. Bed Mobility: 6 Transfers (B,C,W/C): 6 Gait: 6 Stairs: 6 Indoor Mobility (Ambulation): Independent Stairs: Independent Prior Devices Use: None PT Evaluation-Current Subjective Patient agrees to PT. Objective Patient Orientation: Normal For Age ROM/Strength ROM Lower Extremities bilateral LE WFL Strength Lower Extremities 4/5 grossly bilateral LE all planes Integumentary/Posture Bowel Incontinence: No Bladder Incontinence: No Posture WFL Neuromuscular (Tone, Coordination, Reflexes) grossly intact Sensory Vision: Functional Hearing: Functional Transfers Lying to Sitting/Side of Bed(Q: 6 Sit to Stand (QC): 6 Chair/Epb-ds-Zccie Xfer(QC): 6 Gait Mode of Locomotion: Walk Anticipated Mode of Locomotion: Walk Walk 10 feet (QC): 6 Walk 50 ft with 2 Turns(QC): 6 Walk 150 ft (QC): 6 Distance: 300' Gait Assistive Device: None Comments/Gait Description safe and functional with no deviation Balance Sitting Static: Normal Sitting Dynamic: Normal Standing Static: Normal Standing Dynamic: Normal Assessment/Needs Patient is currently at independent [facility] with all gross motor skill safely and does not require skilled PT intervention at this time Rehab Potential: Fair PT Plan Treatment/Plan Treatment Plan: Discontinue PT Treatment Duration: Jul 31, 2022 Frequency: 1 time per week Estimated Hrs Per Day: .25 hour per day Patient and/or Family Agrees t: Yes Time Time In: 1301 Time Out: 1310 DATE: Jul 31, 2022 Total Billed Treatment Time: 9 Total Billed Treatment 1 visit [facility] 9 min MARGARET RODAS PT Jul 31, 2022 14:17
[2022-07-31 15:39] VITALS: BP 120/63
[2022-07-31 16:02] LABS: AMYLASE 25 U/L (25-125)
[2022-07-31 16:11] LABS: LIPASE 9 U/L (8-78)
--- NOTE | 2022-07-31 16:20 | Diagnostic Imaging Report ---
INDICATION: Abdominal pain. EXAMINATION: KUB at 03:48 p.m. FINDINGS: Gallbladder is surgically absent. There are some gas-filled small bowel loops in the abdomen but these are not pathologically dilated. Colon is decompressed. IMPRESSION: Increased volume of gas in the small bowel could be due to mild ileus or even possibly early obstruction. Dictated by: Dictated on workstation # [id number]
[2022-07-31] MEDS: HYDROcodone/APAP 5 MG/325 MG (LORTAB) TAB PO PRN ×2 (16:32→22:52)
--- NOTE | 2022-07-31 17:06 | Consultation - Surgery ---
LINDSEY MARTINEZ 07/31/22 1706: History of Present Illness History of Present Illness Patient Consulted On(ziggy/time) 07/31/22 17:00 Time Seen by Provider: 16:41 Reason for Visit: Chest pain History of Present Illness Patient is seen to day laying down in bed with the company of her daughter and her . She had presented to the ED a day prior for fever and sweats. She says her fever and sweats have continued throughout the past day if she is not taking tylenol. She is now complaing of RUQ pain that she says feels sharp and is constant, she says that she has had things like this before but it usually goes away but this time it isn't. She says it does not matter what she eats or even if she eats to make the pain better or worse. She says that she has started getting shooting pains with it occasionally today to her right lower back. She says that she has been feeling somewhat light headed and "whoozy" when she stands up to go to the bathroom. She says that she had a her gallbladder removed around the year 1995, a hysterectomy in 1999 and a hiatal hernia sometime not too long after the hysterectomy. She says that she is still having normal bowel movements with no blood in her stool. She says that she is having normal urination with no blood or difficulty going. She denies any vomiting, heart palpitations, or trouble breathing. Allergies and Home Medications Allergies Coded Allergies: Penicillins (Verified Allergy, Unknown, 07/31/22) PATIENT DOES NOT REMEMBER REACTION. SHE HAD THIS REACTION WHEN SHE WAS A CHILD. Patient Home Medication List Acetaminophen (Tylenol Extra Strength) 500 Mg Tablet, 1,000 MG PO Q6H PRN for PAIN-MILD (1-4), (Reported) Entered as Reported by: FATOU ANGELA on 07/31/22 0950 Last Action: Continued Aspirin (Aspirin) 81 Mg Tab.chew, 81 MG PO DAILY, (Reported) Entered as Reported by: FATOU ANGELA on 07/31/2250 Last Action: Continued Atorvastatin Calcium (Atorvastatin Calcium) 80 Mg Tablet, 80 MG PO HS, (Reported) Entered as Reported by: FATOU ANGELA on 07/31/2250 Last Action: Continued Clopidogrel Bisulfate (Clopidogrel) 75 Mg Tablet, 75 MG PO DAILY, (Reported) Entered as Reported by: FATOU ANGELA on 07/31/22949 Last Action: Continued Metoprolol Succinate (Metoprolol Succinate) 50 Mg Tab.er.24h, 50 MG PO DAILY, (Reported) Entered as Reported by: FATOU ANGELA on 07/31/22949 Last Action: Continued Oxybutynin Chloride (Oxybutynin Chloride) 5 Mg Tablet, 5 MG PO DAILY, (Reported) Entered as Reported by: FATOU ANGELA on 07/31/22949 Last Action: Continued Pantoprazole Sodium (Pantoprazole Sodium) 40 Mg Tablet.dr, 40 MG PO DAILY, (Reported) Entered as Reported by: FATOU ANGELA on 07/31/22949 Last Action: Continued Discontinued Medications Aspirin (Children's Aspirin) 81 Mg Tab.chew, 81 MG PO DAILY Discontinued Reason: No Longer Taking Prescribed by: MELISSA BARNETT on 10/16/21842 Last Action: Discontinued Atorvastatin Calcium (Atorvastatin Calcium) 80 Mg Tablet, 80 MG PO HS Discontinued Reason: No Longer Taking Prescribed by: MELISSA BARNETT on 10/16/21842 Last Action: Discontinued Clopidogrel Bisulfate (Clopidogrel) 75 Mg Tablet, 75 MG PO DAILY Discontinued Reason: No Longer Taking Prescribed by: MELISSA BARNETT on 10/16/21842 Last Action: Discontinued Famotidine (Famotidine) 20 Mg Tablet, 20 MG PO BID Discontinued Reason: No Longer Taking Prescribed by: BERNA CORDOBA on 12/07/211225 Last Action: Discontinued Metoprolol Succinate (Metoprolol Succinate) 50 Mg Tab.er.24h, 50 MG PO DAILY Discontinued Reason: No Longer Taking Prescribed by: MELISSA BARNETT on 10/16/21842 Last Action: Discontinued Pantoprazole Sodium (Pantoprazole Sodium) 40 Mg Tablet.dr, 40 MG PO DAILY Discontinued Reason: No Longer Taking Prescribed by: BERNA CORDOBA on 12/07/211225 Last Action: Discontinued Past Mzlvijs-Xknhbi-Imoqfj Hx Patient Social History Smoking Status: Never a Smoker 2nd Hand Smoke Exposure: No Recent Hopitalizations: No Physical Abuse Screen: No Sexual Abuse: No Alcohol Use?: No Surgeries History of Surgeries: Yes Surgeries: Abdominal (Hiatal hernia repair for dysphagia "sometime after hysterectomy" in 1999), Gallbladder (Around year 1995), Hysterectomy (in 1999) Respiratory History of Respiratory Disorde: No Cardiovascular History of Cardiac Disorders: Yes Cardiac Disorders: Coronary Artery Disease, Heart Attack, High Cholesterol, Hypertension Neurological History of Neurological Disord: No Genitourinary History of Genitourinary Disor: No Gastrointestinal Gastrointestinal Disorders: Hiatal Hernia (Sometime after the 1999), Gall Bladder Disease (cholecystectomy around 1995) Musculoskeletal History of Musculoskeletal Dis: No Endocrine History of Endocrine Disorders: No HEENT HEENT Disorders: Dysphagia (from Hiatal Hernia) Cancer History of Cancer: No Psychosocial History of Psychiatric Problem: No Blood Transfusions History of Blood Disorders: No Family Medical History Significant Family History: No Pertinent Family Hx Review of Systems-General Constitutional: chills; No diaphoresis; dizziness, fever; No weakness EENTM: No hearing loss, No double vision Respiratory: No cough, No dyspnea on exertion, No hemoptysis, No phlegm, No short of breath Gastrointestinal: RUQ; No constipation, No diarrhea, No jaundice, No vomiting Genitourinary: No dysuria, No frequency, No hematuria : No Musculoskeletal: back pain (right lower back pain); No joint pain, No joint swelling Skin: no symptoms reported Psychiatric/Neurological: No Symptoms Reported Physical Exam-General Problems Physical Exam Vital Signs Vital Signs - First Documented 07/30/22 07/30/22 23:10 23:46 Temp 38.3 Pulse 78 Resp 20 B/P (MAP) 173/86 (115) Pulse Ox 94 O2 Delivery Room Air O2 Flow Rate 2.00 Capillary Refill : Less Than 3 Seconds General Appearance: WD/WN, no apparent distress Eyes: Bilateral Eye PERRL, Bilateral Eye EOMI HEENT: PERRL/EOMI Neck: non-tender, full range of motion, supple Respiratory: chest non-tender, lungs clear, no respiratory distress, no accessory muscle use; No decreased breath sounds, No crackles, No rales Cardiovascular: regular rate, rhythm, no edema, no gallop, no murmur; No diastolic murmur, No systolic murmur Peripheral Pulses: 3+ Carotid (R), 3+ Carotid (L), 3+ Radial Pulses (R), 3+ Radial Pulses (L) Gastrointestinal: soft; No no organomegaly; guarding (conscious), tenderness (RUQ to deep palpation) Back: no CVA tenderness, no vertebral tenderness Extremities: non-tender, no pedal edema, no calf tenderness Neurologic/Psychiatric: alert, normal mood/affect, oriented x 3 Skin: warm/dry Lymphatic: no adenopathy (neck, sub and supraclavicular. ) Data Review Labs Laboratory Tests 07/30/22 23:10: White Blood Count 4.2L, Red Blood Count 4.65, Hemoglobin 13.3, Hematocrit 40, Mean Corpuscular Volume 85, Mean Corpuscular Hemoglobin 29, Mean Corpuscular Hemoglobin Concent 34, Red Cell Distribution Width 12.8, Platelet Count 136, Mean Platelet Volume 9.4, Immature Granulocyte % (Auto) 1, Neutrophils (%) (Auto) 87H, Lymphocytes (%) (Auto) 8L, Monocytes (%) (Auto) 4, Eosinophils (%) (Auto) 0, Basophils (%) (Auto) 1, Neutrophils # (Auto) 3.7, Lymphocytes # (Auto) 0.3L, Monocytes # (Auto) 0.2, Eosinophils # (Auto) 0.0, Basophils # (Auto) 0.0, Immature Granulocyte # (Auto) 0.0, Neutrophils % (Manual) 56, Lymphocytes % (Manual) 3, Monocytes % (Manual) 1, Metamyelocytes % 1, Myelocytes % 1, Band Neutrophils 35, Atypical Lymphocytes 1, Reactive Lymphocytes 2, Platelet Estimate NORMAL, Blood Morphology Comment NORMAL, Prothrombin Time 13.3, INR Comment 1.0, Activated Partial Thromboplast Time 27, Sodium Level 136, Potassium Level 4.1, Chloride Level 100, Carbon Dioxide Level 22, Anion Gap 14, Blood Urea Nitrogen 12, Creatinine 0.86, Estimat Glomerular Filtration Rate 72, BUN/Creatinine Ratio 14, Glucose Level 133H, Calcium Level 9.1, Corrected Calcium 9.3, Magnesium Level 1.8, Total Bilirubin 0.4, Aspartate Amino Transf (AST/SGOT) 35H, Alanine Aminotransferase (ALT/SGPT) 24, Alkaline Phosphatase 82, Troponin I < 0.30, Pro-B-Type Natriuretic Peptide 1907.0H, Total Protein 6.8, Albumin 3.7, Lipase 13 07/30/22 23:18: SARS-CoV-2 RNA (RT-PCR) Not Detected 07/30/22 23:46: Lactic Acid Level 0.84 07/31/22 04:08: White Blood Count 3.1L, Red Blood Count 4.50, Hemoglobin 13.0, Hematocrit 39, Mean Corpuscular Volume 86, Mean Corpuscular Hemoglobin 29, Mean Corpuscular Hemoglobin Concent 34, Red Cell Distribution Width 12.8, Platelet Count 140, Mean Platelet Volume 9.6, Immature Granulocyte % (Auto) 1, Neutrophils (%) (Auto) 85H, Lymphocytes (%) (Auto) 9L, Monocytes (%) (Auto) 4, Eosinophils (%) (Auto) 0, Basophils (%) (Auto) 0, Neutrophils # (Auto) 2.6, Lymphocytes # (Auto) 0.3L, Monocytes # (Auto) 0.1, Eosinophils # (Auto) 0.0, Basophils # (Auto) 0.0, Immature Granulocyte # (Auto) 0.0, Sodium Level 136, Potassium Level 3.8, Chloride Level 102, Carbon Dioxide Level 23, Anion Gap 11, Blood Urea Nitrogen 13, Creatinine 0.87, Estimat Glomerular Filtration Rate 71, BUN/Creatinine Ratio 15, Glucose Level 106H, Calcium Level 8.8, Corrected Calcium 9.1, Magnesium Level 1.8, Total Bilirubin 0.4, Aspartate Amino Transf (AST/SGOT) 40H, Alanine Aminotransferase (ALT/SGPT) 31, Alkaline Phosphatase 70, Total Protein 6.4, Albumin 3.6, Lipase 9, Lactic Acid Level 0.81, Phosphorus Level 4.4, Amylase Level 25 07/31/22 05:30: Urine Color YELLOW, Urine Clarity SL CLOUDY, Urine pH 5.5, Urine Specific Eldred 1.010L, Urine Protein NEGATIVE, Urine Glucose (UA) NEGATIVE, Urine Ketones NEGATIVE, Urine Nitrite NEGATIVE, Urine Bilirubin NEGATIVE, Urine Urobilinogen 0.2, Urine Leukocyte Esterase NEGATIVE, Urine RBC (Auto) NEGATIVE, Urine RBC RARE, Urine WBC RARE, Urine Squamous Epithelial Cells 5-10, Urine Crystals NONE, Urine Bacteria NEGATIVE, Urine Casts PRESENT, Urine Hyaline Casts 0-2H, Urine Mucus NEGATIVE, Urine Culture Indicated NO Microbiology 07/31/22 Blood Culture - Preliminary, Resulted No growth Radiology FINDINGS: Heart size and pulmonary vasculature are normal. The lungs are clear without consolidation, pleural effusion, or pneumothorax. The osseous structures are intact. IMPRESSION: 1. No acute radiographic abnormality in the chest. INDICATION: Abdominal pain. EXAMINATION: KUB at 03:48 p.m. FINDINGS: Gallbladder is surgically absent. There are some gas-filled small bowel loops in the abdomen but these are not pathologically dilated. Colon is decompressed. IMPRESSION: Increased volume of gas in the small bowel could be due to mild ileus or even possibly early obstruction. VALERIANO HADLEY DO 07/31/22 1918: History of Present Illness History of Present Illness Date Seen by Provider: Jul 31, 2022 Time Seen by Provider: 18:36 History of Present Illness Surgery asked to consult regarding Abdominal pain. HPI per ED: 72-year-old female with past medical history of CAD and hypertension coming in due to fever, body aches, and chest discomfort that started yesterday. No cough, nausea, vomiting, diarrhea, rash, shortness of breath, abdominal pain, lower extremity swelling or pain, no prior history of DVT or PE, no hemoptysis, no recent surgery. She states this does not feel like when she had her STEMI. On review of the chart, her STEMI was in September 2021, and she did not require any stenting due to likely it dissolving from the heparin as well as dual antiplatelet therapy per the cardiology note. Pt states she came in because of chest pain; "I don't chance it since my heart attack in September". She was admitted for pneumonia. She states she has had RLQ abdominal pain since probably January; "but I just ignored it". The pain became "severe" today and wouldn't go away. She thinks sometimes having a BM has helped in the past. Not really associated with foods or movement, they don't make it worse. When I saw her she was lying in bed comfortably and did not appear to be in any distress. She stated it was better than earlier. She states the pain sometimes radiates down into leg. Allergies and Home Medications Allergies Coded Allergies: Penicillins (Verified Allergy, Unknown, 07/31/22) PATIENT DOES NOT REMEMBER REACTION. SHE HAD THIS REACTION WHEN SHE WAS A CHILD. Patient Home Medication List Home Medication List Reviewed: Yes Acetaminophen (Tylenol Extra Strength) 500 Mg Tablet, 1,000 MG PO Q6H PRN for PAIN-MILD (1-4), (Reported) Entered as Reported by: FATOU ANGELA on 07/31/22 0950 Last Action: Continued Aspirin (Aspirin) 81 Mg Tab.chew, 81 MG PO DAILY, (Reported) Entered as Reported by: FATOU ANGELA on 07/31/22949 Last Action: Continued Atorvastatin Calcium (Atorvastatin Calcium) 80 Mg Tablet, 80 MG PO HS, (Reported) Entered as Reported by: FATOU ANGELA on 07/31/22949 Last Action: Continued Clopidogrel Bisulfate (Clopidogrel) 75 Mg Tablet, 75 MG PO DAILY, (Reported) Entered as Reported by: FATOU ANGELA on 07/31/22949 Last Action: Continued Metoprolol Succinate (Metoprolol Succinate) 50 Mg Tab.er.24h, 50 MG PO DAILY, (R eported) Entered as Reported by: FATOU ANGELA on 07/31/22949 Last Action: Continued Oxybutynin Chloride (Oxybutynin Chloride) 5 Mg Tablet, 5 MG PO DAILY, (Reported) Entered as Reported by: FATOU ANGELA on 07/31/22949 Last Action: Continued Pantoprazole Sodium (Pantoprazole Sodium) 40 Mg Tablet.dr, 40 MG PO DAILY, (Reported) Entered as Reported by: FATOU ANGELA on 07/31/22949 Last Action: Continued Discontinued Medications Aspirin (Children's Aspirin) 81 Mg Tab.chew, 81 MG PO DAILY Discontinued Reason: No Longer Taking Prescribed by: MELISSA BARNETT on 10/16/21842 Last Action: Discontinued Atorvastatin Calcium (Atorvastatin Calcium) 80 Mg Tablet, 80 MG PO HS Discontinued Reason: No Longer Taking Prescribed by: MELISSA BARNETT on 10/16/21842 Last Action: Discontinued Clopidogrel Bisulfate (Clopidogrel) 75 Mg Tablet, 75 MG PO DAILY Discontinued Reason: No Longer Taking Prescribed by: MELISSA BARNETT on 10/16/21842 Last Action: Discontinued Famotidine (Famotidine) 20 Mg Tablet, 20 MG PO BID Discontinued Reason: No Longer Taking Prescribed by: BERNA CORDOBA on 12/07/211225 Last Action: Discontinued Metoprolol Succinate (Metoprolol Succinate) 50 Mg Tab.er.24h, 50 MG PO DAILY Discontinued Reason: No Longer Taking Prescribed by: MELISSA BARNETT on 10/16/21842 Last Action: Discontinued Pantoprazole Sodium (Pantoprazole Sodium) 40 Mg Tablet.dr, 40 MG PO DAILY Discontinued Reason: No Longer Taking Prescribed by: BERNA CORDOBA on 12/07/211225 Last Action: Discontinued Past Tsvcaiz-Saujbp-Dfxphc Hx Patient Social History Smoking Status: Never a Smoker 2nd Hand Smoke Exposure: No Recent Hopitalizations: No Physical Abuse Screen: No Sexual Abuse: No Surgeries History of Surgeries: Yes Surgeries: Abdominal (Hiatal hernia repair for dysphagia "sometime after hysterectomy" in 1999), Gallbladder (Around year 1995), Hysterectomy (in 1999) Respiratory History of Respiratory Disorde: No Cardiovascular History of Cardiac Disorders: Yes Cardiac Disorders: Coronary Artery Disease, Hypertension Neurological History of Neurological Disord: No Genitourinary History of Genitourinary Disor: No Gastrointestinal History of Gastrointestinal Di: Yes Gastrointestinal Disorders: Gastroesophageal Reflux, Hiatal Hernia (Sometime after the 1999), Gall Bladder Disease (cholecystectomy around 1995) Musculoskeletal History of Musculoskeletal Dis: No Endocrine History of Endocrine Disorders: No HEENT History of HEENT Disorders: Yes HEENT Disorders: Dysphagia (from Hiatal Hernia) Cancer History of Cancer: No Psychosocial History of Psychiatric Problem: No Blood Transfusions History of Blood Disorders: No Family Medical History Significant Family History: Diabetes (denied) Review of Systems-General Constitutional: chills; No diaphoresis; dizziness, fever; No weakness EENTM: No hearing loss, No double vision, No epistaxis Respiratory: No cough, No dyspnea on exertion, No hemoptysis, No phlegm, No short of breath Cardiovascular: chest pain, Hx of Intervention; No palpitations Gastrointestinal: RUQ, RLQ; No constipation, No diarrhea, No jaundice, No vomiting Genitourinary: No dysuria, No frequency, No hematuria : No Musculoskeletal: back pain (right lower back pain); No joint pain, No joint swelling Skin: No change in color, No change in hair/nails Psychiatric/Neurological: Denies Anxiety, Denies Depressed, Denies Seizure Physical Exam-General Problems Physical Exam General Appearance: WD/WN, no apparent distress Eyes: Bilateral Eye PERRL, Bilateral Eye EOMI HEENT: pharynx normal; No scleral icterus (R), No scleral icterus (L) Neck: non-tender, supple Respiratory: chest non-tender, lungs clear, normal breath sounds, no respiratory distress, no accessory muscle use Cardiovascular: regular rate, rhythm, no murmur Gastrointestinal: soft, no organomegaly, guarding (voluntary), tenderness (RUQ to deep palpation and RLQ) Rectal: deferred Back: no CVA tenderness, no vertebral tenderness Extremities: non-tender, no pedal edema, no calf tenderness 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 ) Assessment/Plan Assessment/Plan Assessment/Plan Right sided abdominal pain Hx of AK and CAD Pneumonia Pt has more of a chronic pain, that got bad for a little bit today. I reviewed the Acute Abdominal series myself; I think it is a non-specific bowel gas pattern. It does not look like PSBO. I am not sure why pt has pain, but I think in order to work it up will order a CT Abd/Pelvis. Monitor labs, pain meds as needed and go to a clear liquid diet (to be safe). Supervisory-Addendum Brief Verification & Attestation Participated in pt care: history, MDM, physical Personally performed: exam, history, MDM, supervision of care Care discussed with: Medical Student Procedures: n/a Verification and Attestation of Medical Student E/M Service A PA student performed and documented this service. I then reviewed and verified all information documented by the medical student and made modifications to such information, when appropriate. I personally performed a physical exam, medical decision making and then discussed any differences between the notes and made revisions as necessary to create one note. Valeriano Hadley , 07/31/22 , 19:20 LINDSEY MARTINEZ Jul 31, 2022 17:06 VALERIANO HADLEY DO Jul 31, 2022 19:18
[2022-07-31] MEDS: FUROSEMIDE 40 MG/4 ML INJ (LASIX) IVP SCH (17:23)
[2022-07-31] MEDS ORDERED: IOHEXOL 350 MG/ML 100 ML (OMNIPAQUE 350) VIAL IV ONE (19:30)
[2022-07-31] MEDS ORDERED: HOLD METFORMIN - RECEIVED CONTRAST 20 ML VIAL IV SCH (19:30)
[2022-07-31] MEDS ORDERED: NS 100 ML (IVPB) BAG IV ONE (19:30)
[2022-07-31 19:45] VITALS: BP 122/58
[2022-07-31] MEDS: SENNA W/DOCUSATE (SENOKOT S) TABLET PO SCH (20:50)
--- NOTE | 2022-07-31 20:56 | Diagnostic Imaging Report ---
CLINICAL INDICATION: Patient with left-sided abdominal pain. EXAM: Axial CT scan of the abdomen and pelvis performed with 100 mL of Omnipaque 350 IV contrast. Sagittal and coronal reformatted images were created. Auto Exposure Controls were utilized during the CT exam to meet ALARA standards for radiation dose reduction. COMPARISON: None. FINDINGS: There is mild atelectasis or scarring involving the posterior aspects of both lung bases. There is lower lumbar spine facet arthropathy. There are degenerative spurs involving the lumbar spine. There is chronic bilateral L5 spondylolysis with grade 1 anterolisthesis of L5 on S1. The gallbladder is surgically absent. The liver, spleen, pancreas and adrenal glands are unremarkable. There are multiple subcentimeter cysts involving both kidneys. Both kidneys are otherwise unremarkable with no stones or hydronephrosis. There is a small amount of fluid within the bladder. The bladder is unremarkable. Uterus is surgically absent. There is no pelvic mass. There is very minimal free fluid in the pelvis. There is no intra-abdominal free air. There is no lymphadenopathy. There is no intestinal obstruction. The visualized portion of the appendix is unremarkable. The appendix distally is partially obscured by adjacent small bowel. There is no fluid adjacent to the appendix. There is a small amount of air involving the left lower abdominal subcutaneous fat which may be from recent procedure or medication administration. Otherwise, the extra-abdominal and extra-pelvic soft tissue structures show no significant abnormality. IMPRESSION: 1: There is no CT evidence of acute abdominal or pelvic process. The appendix is unremarkable. There is no urinary tract stone. Gallbladder is surgically absent. 2: There are small multiple bilateral renal cysts. 3: There is chronic bilateral L5 spondylolysis with grade 1 anterolisthesis of L5 on S1. Dictated by: Dictated on workstation # [id number]
[2022-07-31 22:51] VITALS: BP 111/62
[2022-08-01] MEDS ORDERED: cefTRIAXone 1 GM/NS 50 ML IVPB IV SCH ×2
[2022-08-01 03:38] VITALS: BP 117/56
[2022-08-01 05:31] LABS: BASOPHILS % (AUTO) 1 % (0-10); EOSINOPHILS % (AUTO) 1 % (0-10); HEMATOCRIT 39 % (35-52); LYMPHOCYTES # (AUTO) 0.4 10^3/uL (1.0-4.0); LYMPHOCYTES % (AUTO) 19 % (12-44); MEAN CORPUSCULAR HEMOGLOBIN 28 pg (25-34); MEAN CORPUSCULAR HGB CONC 33 g/dL (32-36); MEAN CORPUSCULAR VOLUME 85 fL (80-99); MONOCYTES # (AUTO) 0.2 10^3/uL (0.0-1.0); MONOCYTES % (AUTO) 10 % (0-12); NEUTROPHILS # (AUTO) 1.5 10^3/uL (1.8-7.8); NEUTROPHILS % (AUTO) 69 % (42-75); PLATELET COUNT 97 10^3/uL (130-400); WHITE BLOOD COUNT 2.1 10^3/uL (4.3-11.0)
[2022-08-01 05:34] LABS: ALBUMIN 3.4 GM/DL (3.2-4.5); POTASSIUM 3.8 MMOL/L (3.6-5.0)
[2022-08-01 05:36] LABS: CALCIUM 8.6 MG/DL (8.5-10.1); SMEAR SCAN COMMENT YES
[2022-08-01 05:37] LABS: TOTAL PROTEIN 6.3 GM/DL (6.4-8.2)
[2022-08-01 05:39] LABS: BILIRUBIN,TOTAL 0.4 MG/DL (0.1-1.0)
[2022-08-01 05:40] LABS: CREATININE SERUM 0.79 MG/DL (0.60-1.30)
[2022-08-01 05:43] LABS: MAGNESIUM 1.9 MG/DL (1.6-2.4)
[2022-08-01] MEDS: FUROSEMIDE 40 MG/4 ML INJ (LASIX) IVP SCH (06:34)
[2022-08-01] MEDS: CATHETER FLUSH 10 ML SYR IVP SCH ×2 (06:34→14:48)
[2022-08-01] MEDS: HYDROcodone/APAP 5 MG/325 MG (LORTAB) TAB PO PRN ×2 (06:46→12:57)
[2022-08-01 07:55] VITALS: BP 101/66
[2022-08-01] MEDS ORDERED: ASPIRIN 81 MG CHEW (CHILDREN'S ASA) PO SCH (09:00)
[2022-08-01] MEDS ORDERED: OXYBUTYNIN (DITROPAN) 5 MG TAB PO SCH (09:00)
[2022-08-01] MEDS ORDERED: meTOproloL SUCCINATE 50 MG (TOPROL XL) TAB PO SCH (09:00)
[2022-08-01] MEDS ORDERED: PANTOPRAZOLE 40 MG (PROTONIX) TAB PO SCH (09:00)
[2022-08-01] MEDS ORDERED: CLOPIDOGREL 75 MG (PLAVIX) TABLET PO SCH (09:00)
--- NOTE | 2022-08-01 09:08 | Consultation - Surgery ---
LINDSEY MARTINEZ 08/01/22 0908: History of Present Illness History of Present Illness Patient Consulted On(ziggy/time) 08/01/22 09:07 Date Seen by Provider: Aug 01, 2022 Reason for Visit: Chest pain History of Present Illness Patient is seen to day laying down in bed with the company of her daughter. She had presented to the ED two days prior for fever and sweats. She says her fever and sweats have continued throughout the past day if she is not taking tylenol. She says that the pain in her RUQ and RLQ do not hurt nearly as bad today. She says that she is having decreased appettite but feels it has been like that since her GA in September of 2021. She says that she is still feeling nauseaus and light headed somewhat when she gets up to go to the bathroom and whenever she s tands up from the toilet. She still denies any problems using the bathroom, and any hematuria or hematochezia. Her CT scan of her abdomen came back which stated that her appendix did not look in distress with no fluid. She has renal cysts as well as L5 and S1 spondylolosis. Allergies and Home Medications Allergies Coded Allergies: Penicillins (Verified Allergy, Unknown, 07/31/22) PATIENT DOES NOT REMEMBER REACTION. SHE HAD THIS REACTION WHEN SHE WAS A CHILD. Patient Home Medication List Acetaminophen (Tylenol Extra Strength) 500 Mg Tablet, 1,000 MG PO Q6H PRN for PAIN-MILD (1-4), (Reported) Entered as Reported by: FATOU ANGELA on 07/31/2250 Last Action: Continued Aspirin (Aspirin) 81 Mg Tab.chew, 81 MG PO DAILY, (Reported) Entered as Reported by: FATOU ANGELA on 07/31/22949 Last Action: Continued Atorvastatin Calcium (Atorvastatin Calcium) 80 Mg Tablet, 80 MG PO HS, (Reported) Entered as Reported by: FATOU ANGELA on 07/31/22949 Last Action: Continued Clopidogrel Bisulfate (Clopidogrel) 75 Mg Tablet, 75 MG PO DAILY, (Reported) Entered as Reported by: FATOU ANGELA on 07/31/2250 Last Action: Continued Metoprolol Succinate (Metoprolol Succinate) 50 Mg Tab.er.24h, 50 MG PO DAILY, (Reported) Entered as Reported by: FATOU ANGELA on 07/31/22949 Last Action: Continued Oxybutynin Chloride (Oxybutynin Chloride) 5 Mg Tablet, 5 MG PO DAILY, (Reported) Entered as Reported by: FATOU ANGELA on 07/31/22949 Last Action: Continued Pantoprazole Sodium (Pantoprazole Sodium) 40 Mg Tablet.dr, 40 MG PO DAILY, (Reported) Entered as Reported by: FATOU ANGELA on 07/31/22949 Last Action: Continued Discontinued Medications Aspirin (Children's Aspirin) 81 Mg Tab.chew, 81 MG PO DAILY Discontinued Reason: No Longer Taking Prescribed by: MELISSA BARNETT on 10/16/21842 Last Action: Discontinued Atorvastatin Calcium (Atorvastatin Calcium) 80 Mg Tablet, 80 MG PO HS Discontinued Reason: No Longer Taking Prescribed by: MELISSA BARNETT on 10/16/21842 Last Action: Discontinued Clopidogrel Bisulfate (Clopidogrel) 75 Mg Tablet, 75 MG PO DAILY Discontinued Reason: No Longer Taking Prescribed by: MELISSA BARNETT on 10/16/21842 Last Action: Discontinued Famotidine (Famotidine) 20 Mg Tablet, 20 MG PO BID Discontinued Reason: No Longer Taking Prescribed by: BERNA CORDOBA on 12/07/211225 Last Action: Discontinued Metoprolol Succinate (Metoprolol Succinate) 50 Mg Tab.er.24h, 50 MG PO DAILY Discontinued Reason: No Longer Taking Prescribed by: MELISSA BARNETT on 10/16/21842 Last Action: Discontinued Pantoprazole Sodium (Pantoprazole Sodium) 40 Mg Tablet.dr, 40 MG PO DAILY Discontinued Reason: No Longer Taking Prescribed by: BERNA CORDOBA on 12/07/211225 Last Action: Discontinued Past Ewqfjva-Hopzjj-Sjybxu Hx Patient Social History Smoking Status: Never a Smoker 2nd Hand Smoke Exposure: No Recent Hopitalizations: No Physical Abuse Screen: No Sexual Abuse: No Alcohol Use?: No Surgeries History of Surgeries: Yes Surgeries: Abdominal (Hiatal hernia repair for dysphagia "sometime after hysterectomy" in 1999), Gallbladder (Around year 1995), Hysterectomy (in 1999) Respiratory History of Respiratory Disorde: No Cardiovascular History of Cardiac Disorders: Yes Cardiac Disorders: Coronary Artery Disease, Hypertension Neurological History of Neurological Disord: No Genitourinary History of Genitourinary Disor: No Gastrointestinal History of Gastrointestinal Di: Yes Gastrointestinal Disorders: Gastroesophageal Reflux, Hiatal Hernia (Sometime after the year 1999), Gall Bladder Disease (cholecystectomy around 1995) Musculoskeletal History of Musculoskeletal Dis: No Endocrine History of Endocrine Disorders: No HEENT History of HEENT Disorders: Yes HEENT Disorders: Dysphagia (from Hiatal Hernia) Cancer History of Cancer: No Psychosocial History of Psychiatric Problem: No Blood Transfusions History of Blood Disorders: No Family Medical History Significant Family History: Diabetes (denied) Review of Systems-General Constitutional: chills, diaphoresis, dizziness (when she gets up to go to the bathroom. ), fever; No malaise, No weakness EENTM: No ear pain, No blurred vision Respiratory: No cough, No dyspnea on exertion, No hemoptysis, No phlegm, No short of breath Cardiovascular: No chest pain, No edema Gastrointestinal: RUQ; No LUQ; RLQ; No LLQ; abdominal pain (RLQ); No constipation, No diarrhea; nausea (when she gets up to go to the bathroom. ); No vomiting Genitourinary: No decreased output, No discharge, No dysuria, No frequency, No hematuria Musculoskeletal: back pain (right lower back. ); No joint pain Physical Exam-General Problems Physical Exam Vital Signs Vital Signs - First Documented 07/30/22 07/30/22 23:10 23:46 Temp 38.3 Pulse 78 Resp 20 B/P (MAP) 173/86 (115) Pulse Ox 94 O2 Delivery Room Air O2 Flow Rate 2.00 Capillary Refill : Less Than 3 Seconds General Appearance: WD/WN, no apparent distress Eyes: Bilateral Eye PERRL, Bilateral Eye EOMI HEENT: PERRL/EOMI Neck: non-tender, full range of motion, supple Respiratory: chest non-tender, lungs clear, no respiratory distress, no accessory muscle use, decreased breath sounds (left base) Cardiovascular: regular rate, rhythm, no edema, no gallop, no murmur; No diastolic murmur, No systolic murmur Peripheral Pulses: 4+ Carotid (R), 4+ Carotid (L), 4+ Radial Pulses (R), 4+ Radial Pulses (L) Gastrointestinal: non tender, soft, no organomegaly, guarding (RUQ conscious), tenderness (RUQ) Back: no CVA tenderness, no vertebral tenderness Extremities: non-tender, no pedal edema, no calf tenderness Neurologic/Psychiatric: alert, normal mood/affect, oriented x 3 Lymphatic: no adenopathy (neck, supra and subsclavicular) Data Review Labs Laboratory Tests 08/01/22 05:13: White Blood Count 2.1L, Red Blood Count 4.58, Hemoglobin 13.0, Hematocrit 39, Mean Corpuscular Volume 85, Mean Corpuscular Hemoglobin 28, Mean Corpuscular Hem oglobin Concent 33, Red Cell Distribution Width 13.0, Platelet Count 97L, Mean Platelet Volume 10.0, Immature Granulocyte % (Auto) 1, Neutrophils (%) (Auto) 69, Lymphocytes (%) (Auto) 19, Monocytes (%) (Auto) 10, Eosinophils (%) (Auto) 1, Basophils (%) (Auto) 1, Neutrophils # (Auto) 1.5L, Lymphocytes # (Auto) 0.4L, Monocytes # (Auto) 0.2, Eosinophils # (Auto) 0.0, Basophils # (Auto) 0.0, Immature Granulocyte # (Auto) 0.0, Percent Immature Platelet Fraction 3.2, Sodium Level 131L, Potassium Level 3.8, Chloride Level 98, Carbon Dioxide Level 24, Anion Gap 9, Blood Urea Nitrogen 12, Creatinine 0.79, Estimat Glomerular Filtration Rate 79, BUN/Creatinine Ratio 15, Glucose Level 114H, Calcium Level 8.6, Corrected Calcium 9.1, Magnesium Level 1.9, Total Bilirubin 0.4, Aspartate Amino Transf (AST/SGOT) 67H, Alanine Aminotransferase (ALT/SGPT) 50, Alkaline Phosphatase 73, Total Protein 6.3L, Albumin 3.4, Smear Scan YES Microbiology 07/31/22 Blood Culture - Preliminary, Resulted No growth 07/31/22 MRSA Screen - Final, Complete MRSA not isolated Radiology FINDINGS: There is mild atelectasis or scarring involving the posterior aspects of both lung bases. There is lower lumbar spine facet arthropathy. There are degenerative spurs involving the lumbar spine. There is chronic bilateral L5 spondylolysis with grade 1 anterolisthesis of L5 on S1. The gallbladder is surgically absent. The liver, spleen, pancreas and adrenal glands are unremarkable. There are multiple subcentimeter cysts involving both kidneys. Both kidneys are otherwise unremarkable with no stones or hydronephrosis. There is a small amount of fluid within the bladder. The bladder is unremarkable. Uterus is surgically absent. There is no pelvic mass. There is very minimal free fluid in the pelvis. There is no intra-abdominal free air. There is no lymphadenopathy. There is no intestinal obstruction. The visualized portion of the appendix is unremarkable. The appendix distally is partially obscured by adjacent small bowel. There is no fluid adjacent to the appendix. There is a small amount of air involving the left lower abdominal subcutaneous fat which may be from recent procedure or medication administration. Otherwise, the extra-abdominal and extra-pelvic soft tissue structures show no significant abnormality. IMPRESSION: 1: There is no CT evidence of acute abdominal or pelvic process. The appendix is unremarkable. There is no urinary tract stone. Gallbladder is surgically absent. 2: There are small multiple bilateral renal cysts. 3: There is chronic bilateral L5 spondylolysis with grade 1 anterolisthesis of L5 on S1. Assessment/Plan Assessment/Plan Assessment/Plan Right sided abdominal pain Hx of GA and CAD Pneumonia Patient is doing better this morning and says that pain is not nearly as bad, she says that she thinks it could be because of the pain medication. Her CT scan was unremarkable for a bowel obstruction as well as appendicitis. The family was updated on the results of the CT scan and that she will not likely need any type of surgery. She was moved to a clear liquid diet the day prior but can move back to foods again today. Monitor labs, pain meds as needed. VALERIANO HADLEY DO 08/01/22 1114: History of Present Illness History of Present Illness Date Seen by Provider: Aug 01, 2022 Time Seen by Provider: 10:14 History of Present Illness PROGRESS NOTE Pt seen and examined, states she is feeling better today but still has mild abdominal pain. She appears comfortable. Allergies and Home Medications Allergies Coded Allergies: Penicillins (Verified Allergy, Unknown, 07/31/22) PATIENT DOES NOT REMEMBER REACTION. SHE HAD THIS REACTION WHEN SHE WAS A CHILD. Patient Home Medication List Home Medication List Reviewed: Yes Acetaminophen (Tylenol Extra Strength) 500 Mg Tablet, 1,000 MG PO Q6H PRN for PAIN-MILD (1-4), (Reported) Entered as Reported by: FATOU ANGELA on 07/31/22 0950 Last Action: Continued Aspirin (Aspirin) 81 Mg Tab.chew, 81 MG PO DAILY, (Reported) Entered as Reported by: FATOU ANGELA on 07/31/22949 Last Action: Continued Atorvastatin Calcium (Atorvastatin Calcium) 80 Mg Tablet, 80 MG PO HS, (Reported) Entered as Reported by: FATOU ANGELA on 07/31/22949 Last Action: Continued Clopidogrel Bisulfate (Clopidogrel) 75 Mg Tablet, 75 MG PO DAILY, (Reported) Entered as Reported by: FATOU ANGELA on 07/31/22949 Last Action: Continued Metoprolol Succinate (Metoprolol Succinate) 50 Mg Tab.er.24h, 50 MG PO DAILY, (Reported) Entered as Reported by: FATOU ANGELA on 07/31/22949 Last Action: Continued Oxybutynin Chloride (Oxybutynin Chloride) 5 Mg Tablet, 5 MG PO DAILY, (Reported) Entered as Reported by: FATOU ANGELA on 07/31/22949 Last Action: Continued Pantoprazole Sodium (Pantoprazole Sodium) 40 Mg Tablet.dr, 40 MG PO DAILY, (Reported) Entered as Reported by: FATOU ANGELA on 07/31/22949 Last Action: Continued Discontinued Medications Aspirin (Children's Aspirin) 81 Mg Tab.chew, 81 MG PO DAILY Discontinued Reason: No Longer Taking Prescribed by: MELISSA BARNETT on 10/16/21842 Last Action: Discontinued Atorvastatin Calcium (Atorvastatin Calcium) 80 Mg Tablet, 80 MG PO HS Discontinued Reason: No Longer Taking Prescribed by: MELISSA BARNETT on 10/16/21842 Last Action: Discontinued Clopidogrel Bisulfate (Clopidogrel) 75 Mg Tablet, 75 MG PO DAILY Discontinued Reason: No Longer Taking Prescribed by: MELISSA BARNETT on 10/16/21842 Last Action: Discontinued Famotidine (Famotidine) 20 Mg Tablet, 20 MG PO BID Discontinued Reason: No Longer Taking Prescribed by: BERNA CORDOBA on 12/07/211225 Last Action: Discontinued Metoprolol Succinate (Metoprolol Succinate) 50 Mg Tab.er.24h, 50 MG PO DAILY Discontinued Reason: No Longer Taking Prescribed by: MELISSA BARNETT on 10/16/21842 Last Action: Discontinued Pantoprazole Sodium (Pantoprazole Sodium) 40 Mg Tablet.dr, 40 MG PO DAILY Discontinued Reason: No Longer Taking Prescribed by: BERNA CORDOBA on 12/07/211225 Last Action: Discontinued Review of Systems-General Constitutional: chills, diaphoresis, dizziness (when she gets up to go to the bathroom. ), fever; No malaise, No weakness Respiratory: No cough, No dyspnea on exertion Cardiovascular: No chest pain, No edema Gastrointestinal: abdominal pain (RLQ); No constipation, No diarrhea; nausea (when she gets up to go to the bathroom. ); No vomiting Musculoskeletal: back pain (right lower back. ); No joint pain Physical Exam-General Problems Physical Exam General Appearance: WD/WN, no apparent distress Eyes: Bilateral Eye PERRL, Bilateral Eye EOMI Respiratory: chest non-tender, lungs clear, no respiratory distress, no accessory muscle use, decreased breath sounds (left base) Cardiovascular: regular rate, rhythm, no murmur Gastrointestinal: soft, no organomegaly, tenderness (RUQ) Assessment/Plan Assessment/Plan Assessment/Plan Right sided abdominal pain Hx of GA and CAD Pneumonia Patient is doing better this morning and says that pain is not nearly as bad, she says that she thinks it could be because of the pain medication. Her CT scan was unremarkable. The family was updated on the results of the CT scan and that she will not likely need any type of surgery. She was moved to a clear liquid diet the day prior but can move back to regular foods again today. Ok to be d/c'd from surgery standpoint. Supervisory-Addendum Brief Verification & Attestation Participated in pt care: history, MDM, physical Personally performed: exam, history, MDM, supervision of care Care discussed with: Medical Student Procedures: n/a Verification and Attestation of Medical Student E/M Service A PA student performed and documented this service. I then reviewed and verified all information documented by the medical student and made modifications to such information, when appropriate. I personally performed a physical exam, medical decision making and then discussed any differences between the notes and made revisions as necessary to create one note. Valeriano Hadley , 08/01/22 , 11:14 LINDSEY MARTINEZ Aug 01, 2022 09:08 VALERIANO HADLEY DO Aug 01, 2022 11:14
[2022-08-01] MEDS: SENNA W/DOCUSATE (SENOKOT S) TABLET PO SCH (09:13)
[2022-08-01] MEDS: ENOXAPARIN 40 MG/0.4 ML (LOVENOX) SYR SC SCH (09:13)
[2022-08-01] MEDS ORDERED: FURO-125 PO (11:21)
[2022-08-01] MEDS ORDERED: DOXY100T2 PO (11:21)
--- NOTE | 2022-08-01 11:21 | Discharge Summary ---
Discharge Summary Hospital Course Was the Problem List Reviewed?: Yes Problems/Dx: (1) Bronchitis (2) Volume overload Status: Acute Qualifiers: Qualified Codes: E87.79 - Other fluid overload (3) Respiratory failure Status: Acute Qualifiers: Qualified Codes: J96.01 - Acute respiratory failure with hypoxia (4) Fever Status: Acute Qualifiers: Qualified Codes: R50.81 - Fever presenting with conditions classified elsewhere Hospital Course Date of Admission: Jul 31, 2022 at 01:48 Admission Diagnosis : Family Physician/Provider: Moose Oglesby MD Date of Discharge: 08/01/22 Discharge Diagnosis: [ ] Hospital Course: Uneventful course after arriving from [facility] for resp distress from volume ov erload with what appeared to be early pneumonia. IV diuresis was maintained with good results. IV abx given empirically. Overall she responded to treatment but had an episode of acute abdominal pain out of proportion to clinical exam prompting Dr Pillai consult when xray was non-specific but CT was normal and that resolved. Overall she was ready for DC had walked with therapy and was back to baseline but daughter and patient very hesitant to go home and I explained that all the results were normal and she was deemed ready for DC but then multiple more somatic complaints occurred. SW consulted and offered HH but they declined. Very resistant to DC and patient was no longer using O2 and labs were normal and clinical assessment was normal so she was DC. Labs and Pending Lab Test: Laboratory Tests 08/01/22 05:13: White Blood Count 2.1L, Red Blood Count 4.58, Hemoglobin 13.0, Hematocrit 39, Mean Corpuscular Volume 85, Mean Corpuscular Hemoglobin 28, Mean Corpuscular Hemoglobin Concent 33, Red Cell Distribution Width 13.0, Platelet Count 97L, Mean Platelet Volume 10.0, Immature Granulocyte % (Auto) 1, Neutrophils (%) (Auto) 69, Lymphocytes (%) (Auto) 19, Monocytes (%) (Auto) 10, Eosinophils (%) (Auto) 1, Basophils (%) (Auto) 1, Neutrophils # (Auto) 1.5L, Lymphocytes # (Auto) 0.4L, Monocytes # (Auto) 0.2, Eosinophils # (Auto) 0.0, Basophils # (Auto) 0.0, Immature Granulocyte # (Auto) 0.0, Percent Immature Platelet Frac tion 3.2, Sodium Level 131L, Potassium Level 3.8, Chloride Level 98, Carbon Dioxide Level 24, Anion Gap 9, Blood Urea Nitrogen 12, Creatinine 0.79, Estimat Glomerular Filtration Rate 79, BUN/Creatinine Ratio 15, Glucose Level 114H, Calcium Level 8.6, Corrected Calcium 9.1, Magnesium Level 1.9, Total Bilirubin 0.4, Aspartate Amino Transf (AST/SGOT) 67H, Alanine Aminotransferase (ALT/SGPT) 50, Alkaline Phosphatase 73, Total Protein 6.3L, Albumin 3.4, Smear Scan YES Microbiology 07/31/22 Blood Culture - Preliminary, Resulted No growth 07/31/22 MRSA Screen - Final, Complete MRSA not isolated Home Meds Active Reported Tylenol Extra Strength (Acetaminophen) 500 Mg Tablet 1,000 Mg PO Q6H PRN Aspirin 81 Mg Tab.chew 81 Mg PO DAILY Clopidogrel (Clopidogrel Bisulfate) 75 Mg Tablet 75 Mg PO DAILY Atorvastatin Calcium 80 Mg Tablet 80 Mg PO HS Metoprolol Succinate 50 Mg Tab.er.24h 50 Mg PO DAILY Pantoprazole Sodium 40 Mg Tablet.dr 40 Mg PO DAILY Oxybutynin Chloride 5 Mg Tablet 5 Mg PO DAILY Assessment/Pt Instructions PCP in 1 week Discharge Planning: <30 minutes discharge planning Discharge Instructions Discharge Diet: Low Sodium Diet Activity as Tolerated: Yes Discharge Physical Examination Vital Signs Vital Signs Date Time Temp Pulse Resp B/P (MAP) Pulse Ox O2 Delivery O2 Flow Rate FiO2 08/01/22 08:00 93 Room Air 08/01/22 07:55 35.8 71 16 101/66 (78) 07/31/22 12:00 2.00 General Appearance: No Apparent Distress, WD/WN Respiratory: Chest Non Tender, Lungs Clear, Normal Breath Sounds, No Accessory Muscle Use, No Respiratory Distress Cardiovascular: Regular Rate, Rhythm, No Edema, No Gallop, No JVD, No Murmur, Normal Peripheral Pulses Neurologic/Psychiatric: Alert, Oriented x3, No Motor/Sensory Deficits, Normal Mood/Affect Allergies: Coded Allergies: Penicillins (Verified Allergy, Unknown, 07/31/22) PATIENT DOES NOT REMEMBER REACTION. SHE HAD THIS REACTION WHEN SHE WAS A CHILD. Discharge Summary Date of Admission Jul 31, 2022 at 01:48 Date of Discharge Discharge Date: Aug 01, 2022 Admission Diagnosis Assessment: Acute pulmonary edema Volume overload CAD Hypertension Hyperlipidemia GERD Plan: Supportive care Cardiology appreciated Moved to fourth floor BERNA CORDOBA 16, 2023 11:21
[2022-08-01 12:28] VITALS: BP_SYST 117; BP_SYST 98; BP_DIAS 64; BP_DIAS 77
[2022-08-01] MEDS: DOXYCYCLINE 100 MG (VIBRAMYCIN) TABLET PO SCH (12:56)
[2022-08-01 15:53] VITALS: BP 117/76
[2022-08-01 16:15] VITALS: BP 117/76
[2022-08-01] MEDS ORDERED: ONDANSETRON 4 MG (ZOFRAN) ORAL DISSOLVE TAB PO NR (16:15)
== END 2022-08-01 11:20 | disposition home or self-care (01) ==
LOC: EDUNIT# 23:03 → ER FS 23:04 → INTOOBSV 07-31 01:48 → ICU 07-31 01:48 → 4TH 07-31 13:25
PROVIDERS: ADMIT Internal Medicine; ATTEND Internal Medicine
DX: J40 Bronchitis, not specified as acute or chronic (principal); E87.79 Other fluid overload; J96.01 Acute respiratory failure with hypoxia; R50.81 Fever presenting with conditions classified elsewhere; J81.0 Acute pulmonary edema; I25.10 Atherosclerotic heart disease of native coronary artery without angina pectoris; I10 Essential (primary) hypertension; I21.3 ST elevation (STEMI) myocardial infarction of unspecified site; I49.3 Ventricular premature depolarization; E78.5 Hyperlipidemia, unspecified; K21.9 Gastro-esophageal reflux disease without esophagitis; M43.07 Spondylolysis, lumbosacral region; N28.1 Cyst of kidney, acquired; J18.9 Pneumonia, unspecified organism; R10.9 Unspecified abdominal pain; R53.81 Other malaise; Z79.02 Long term (current) use of antithrombotics/antiplatelets; Z79.899 Other long term (current) drug therapy
CPT/HCPCS: 36415; 71045; 74022; 74177; 80053 ×3; 81000; 82150; 83605 ×2; 83690 ×2; 83735 ×3; 83880; 84100; 84484; 85007; 85025 ×2; 85027; 85610; 85730; 87040; 87081; 87636; 93005; 93041; 96366; 96372 ×2; 96375; 96376 ×2; 97161; 99284; G0378 ×2